=== PATIENT | female | born 1955 | race Caucasian/White ===

== ENCOUNTER 2020-06-24 07:28 | Outpatient (REF) | payer OTHER, SELFPAY ==
[2020-06-24 11:39] LABS: Cholesterol 242 mg/dL; HDL Cholesterol 57 mg/dL; LDL Cholesterol Calculated 152 mg/dl; Triglycerides 166 mg/dL
== END 2020-06-24 07:29 | disposition home or self-care (01) ==
LOC: HO.MANLDS 07:28
PROVIDERS: PCP Internal Medicine; Visit Provider Internal Medicine
DX: E78.00 Pure hypercholesterolemia, unspecified (principal)
CPT/HCPCS: 80061

== ENCOUNTER 2021-08-03 08:59 | Outpatient (REF) | payer MEDICARE, OTHER, SELFPAY ==
[2021-08-03 11:30] LABS: MANUAL DIFF FLAG NO
[2021-08-03 11:35] LABS: Basophils Percent Auto 0.5 % (0-2); Eosinophils Absolute Auto 0.1 X10*3/uL (0.0-0.4); Eosinophils Percent Auto 1.4 % (0-4); Hematocrit 41.3 % (37.0-47.0); Hemoglobin 13.7 g/dl (12.0-16.0); Imm Gran Abs Auto 0.07 X10*3/uL (0.00-0.03); Imm Gran Pct Auto 1.6 % (0.0-0.4); Lymphocytes Absolute Auto 1.5 X10*3/uL (1.2-4.9); Lymphocytes Percent Auto 35.4 % (20-40); Mean Corpuscular HGB Conc 33.2 g/dl (31.0-35.0); Mean Corpuscular Hemoglobin 30.8 pg (27.0-33.0); Mean Corpuscular Volume 92.8 fL (80.0-98.0); Mean Platelet Volume 10.9 fL (9.4-12.3); Monocytes Absolute Auto 0.5 X10*3/uL (0.1-1.2); Monocytes Percent Auto 11.3 % (2-11); Neutrophils Absolute Auto 2.2 x10*3/uL (2.0-8.3); Neutrophils Percent Auto 49.8 % (45-73); Platelet Count 278 X10*3/uL (160-400); Red Blood Count 4.45 X10*6/uL (4.20-5.50); Red Cell Distribution Width 13.2 % (11.0-16.0); White Blood Count 4.3 X10*3/uL (4.8-10.8)
[2021-08-03 12:19] LABS: Alanine Aminotransferase 18 U/L (0-31); Alkaline Phosphatase 75 U/L (39-117); Anion Gap 13 (12-20); Aspartate Amino Transferase 15 U/L (5-31); Bilirubin Total 0.5 mg/dL (0.0-1.0); Blood Urea Nitrogen 11 mg/dL (9-16); Calcium 9.1 mg/dL (8.4-10.2); Carbon Dioxide 30 mmol/L (22-29); Chloride 102 mmol/L (96-108); Cholesterol 217 mg/dL; Estimated Glomerular Filt Rate > 60; Glucose Fasting 81 mg/dL (60-99); HDL Cholesterol 62 mg/dL; LDL Cholesterol Calculated 111 mg/dl; Potassium 3.2 mmol/L (3.3-5.1); Sodium 142 mmol/L (135-145); Total Protein 6.3 g/dL (6.5-8.0); Triglycerides 220 mg/dL
[2021-08-03 12:29] LABS: Vitamin B12 765 pg/mL (200-900)
== END 2021-08-03 09:00 | disposition home or self-care (01) ==
LOC: HO.MANLDS 08:59
PROVIDERS: PCP Internal Medicine; Visit Provider Internal Medicine
DX: E03.9 Hypothyroidism, unspecified (principal); E78.00 Pure hypercholesterolemia, unspecified
CPT/HCPCS: 36415; 80053; 80061; 82306; 82607; 84443; 85025

== ENCOUNTER 2022-08-19 09:43 | Outpatient (REF) | payer MEDICARE, OTHER, SELFPAY ==
[2022-08-19 11:40] LABS: MANUAL DIFF FLAG NO
[2022-08-19 12:03] LABS: Basophils Percent Auto 0.7 % (0-2); Eosinophils Absolute Auto 0.1 X10*3/uL (0.0-0.4); Eosinophils Percent Auto 1.4 % (0-4); Hematocrit 41.9 % (37.0-47.0); Hemoglobin 13.7 g/dl (12.0-16.0); Imm Gran Abs Auto 0.02 X10*3/uL (0.00-0.03); Imm Gran Pct Auto 0.5 % (0.0-0.4); Lymphocytes Percent Auto 23.4 % (20-40); Mean Corpuscular HGB Conc 32.7 g/dl (31.0-35.0); Mean Corpuscular Hemoglobin 30.6 pg (27.0-33.0); Mean Corpuscular Volume 93.7 fL (80.0-98.0); Mean Platelet Volume 11.5 fL (9.4-12.3); Monocytes Absolute Auto 0.4 X10*3/uL (0.1-1.2); Monocytes Percent Auto 8.7 % (2-11); Neutrophils Absolute Auto 2.8 x10*3/uL (2.0-8.3); Neutrophils Percent Auto 65.3 % (45-73); Platelet Count 233 X10*3/uL (160-400); Red Blood Count 4.47 X10*6/uL (4.20-5.50); Red Cell Distribution Width 12.6 % (11.0-16.0); White Blood Count 4.2 X10*3/uL (4.8-10.8)
[2022-08-19 14:39] LABS: Alanine Aminotransferase 20 U/L (0-31); Alkaline Phosphatase 74 U/L (39-117); Anion Gap 14 (12-20); Aspartate Amino Transferase 20 U/L (5-31); Bilirubin Total 0.6 mg/dL (0.0-1.0); Blood Urea Nitrogen 28 mg/dL (9-16); Carbon Dioxide 27 mmol/L (22-29); Chloride 105 mmol/L (96-108); Cholesterol 200 mg/dL; Estimated Glomerular Filt Rate 35; Glucose Random 86 mg/dL (60-115); HDL Cholesterol 59 mg/dL; LDL Cholesterol Calculated 125 mg/dl; Potassium 5.1 mmol/L (3.3-5.1); Sodium 141 mmol/L (135-145); Total Protein 6.1 g/dL (6.5-8.0); Triglycerides 82 mg/dL
[2022-08-19 14:55] LABS: Free T4 (Free Thyroxine) 1.59 ng/dL (0.71-1.85); Thyroid Stimulating Hormone 0.22 uIU/mL (0.32-4.0)
== END 2022-08-19 09:44 | disposition home or self-care (01) ==
LOC: HO.MANLDS 09:43
PROVIDERS: Visit Provider Internal Medicine
DX: E78.00 Pure hypercholesterolemia, unspecified (principal); K21.9 Gastro-esophageal reflux disease without esophagitis; E03.9 Hypothyroidism, unspecified
CPT/HCPCS: 36415; 80053; 80061; 82306; 84439; 84443; 85025

== ENCOUNTER 2022-08-29 08:58 | Outpatient (REF) | payer MEDICARE, OTHER, SELFPAY ==
[2022-08-29 14:26] LABS: Appearance Urine Clear; Color Urine Yellow; Glucose Urine UA Negative (Negative); Leukocyte Esterase Urine Negative (Negative); Nitrite Urine Negative (Negative); PH 6.5 (5.0-9.0); Specific Gravity - Urine <= 1.005 (1.005-1.025); Urine Blood Negative (Negative); Urine Ketones Negative (Negative); Urine Protein Negative (Neg-Trace)
[2022-08-29 14:31] LABS: Bacteria Urine None Seen (None Seen); Hyaline Casts Urine 0-2 /LPF (0-2); RBC Urine 0-2 /HPF (0-2); Squamous Epithelial Cell Urine 0-2 /HPF (0-2); WBC Urine 0-5 /HPF (0-5)
[2022-08-29 14:35] LABS: Anion Gap 15 (12-20); Blood Urea Nitrogen 12 mg/dL (9-16); Carbon Dioxide 29 mmol/L (22-29); Chloride 104 mmol/L (96-108); Estimated Glomerular Filt Rate > 60; Glucose Random 90 mg/dL (60-115); Potassium 4.1 mmol/L (3.3-5.1); Sodium 144 mmol/L (135-145)
== END 2022-08-29 08:59 | disposition home or self-care (01) ==
LOC: HO.MANLDS 08:58
PROVIDERS: Visit Provider Internal Medicine
DX: N28.9 Disorder of kidney and ureter, unspecified (principal)
CPT/HCPCS: 36415; 80048; 81001; 87086

== ENCOUNTER 2023-08-25 07:51 | Outpatient (REF) | payer MEDICARE, OTHER, SELFPAY ==
[2023-08-25 13:23] LABS: MANUAL DIFF FLAG NO
[2023-08-25 13:56] LABS: Basophils Percent Auto 0.6 % (0-2); Eosinophils Absolute Auto 0.1 X10*3/uL (0.0-0.4); Eosinophils Percent Auto 1.6 % (0-4); Hematocrit 41.9 % (37.0-47.0); Imm Gran Abs Auto 0.02 X10*3/uL (0.00-0.03); Imm Gran Pct Auto 0.4 % (0.0-0.4); Lymphocytes Absolute Auto 1.1 X10*3/uL (1.2-4.9); Lymphocytes Percent Auto 21.1 % (20-40); Mean Corpuscular HGB Conc 33.4 g/dl (31.0-35.0); Mean Corpuscular Hemoglobin 31.3 pg (27.0-33.0); Mean Corpuscular Volume 93.5 fL (80.0-98.0); Mean Platelet Volume 11.2 fL (9.4-12.3); Monocytes Absolute Auto 0.4 X10*3/uL (0.1-1.2); Monocytes Percent Auto 8.5 % (2-11); Neutrophils Absolute Auto 3.4 x10*3/uL (2.0-8.3); Neutrophils Percent Auto 67.8 % (45-73); Platelet Count 268 X10*3/uL (160-400); Red Blood Count 4.48 X10*6/uL (4.20-5.50); Red Cell Distribution Width 12.7 % (11.0-16.0); White Blood Count 5.1 X10*3/uL (4.8-10.8)
[2023-08-25 14:27] LABS: Alanine Aminotransferase 21 U/L (0-31); Alkaline Phosphatase 73 U/L (39-117); Anion Gap 11 (12-20); Aspartate Amino Transferase 21 U/L (5-31); Bilirubin Total 0.5 mg/dL (0.0-1.0); Blood Urea Nitrogen 10 mg/dL (9-16); Calcium 9.1 mg/dL (8.4-10.2); Carbon Dioxide 30 mmol/L (22-29); Chloride 105 mmol/L (96-108); Cholesterol 212 mg/dL (<200); Estimated Glomerular Filt Rate > 60; Glucose Random 87 mg/dL (60-115); HDL Cholesterol 60 mg/dL (>40); LDL Cholesterol Calculated 126 mg/dL (<100); Potassium 3.8 mmol/L (3.3-5.1); Sodium 142 mmol/L (135-145); Total Protein 6.5 g/dL (6.5-8.0); Triglycerides 134 mg/dL (<150)
[2023-08-25 14:47] LABS: Free T4 (Free Thyroxine) 1.29 ng/dL (0.71-1.85); Thyroid Stimulating Hormone 0.18 uIU/mL (0.32-4.0); Vitamin D 25-OH Total 54.5 ng/mL (>30)
== END 2023-08-25 07:52 | disposition home or self-care (01) ==
LOC: HO.MANLDS 07:51
PROVIDERS: Visit Provider Internal Medicine
DX: E78.00 Pure hypercholesterolemia, unspecified (principal); I10 Essential (primary) hypertension; E03.9 Hypothyroidism, unspecified; E55.9 Vitamin D deficiency, unspecified
CPT/HCPCS: 36415; 80053; 80061; 82306; 84439; 84443; 85025

== ENCOUNTER 2024-04-03 14:39 | Outpatient (REF) | payer MEDICARE, OTHER, SELFPAY ==
--- NOTE | ~2024-04-03 | US_ITS ---
EXAMINATION: MM DIAGNOSTIC DIGITAL BREAST TOMOSYNTHESIS, BILATERAL US BREAST LIMITED, LEFT MAMMOGRAPHY: CLINICAL INFORMATION: 68-year-old female complaining of diffuse left breast pain. Also due for yearly. COMPARISON: Mammography: 05/02/2023 right, 03/24/2023 bilateral, 03/02/2023 left, 03/07/2022 bilateral, 03/04/2021 bilateral ([facility]). TECHNIQUE: Digital breast tomosynthesis is performed in both the craniocaudal and mediolateral oblique views along with computer-aided detection (CAD). Synthesized 2D images are generated from the tomosynthesis. FINDINGS: There are scattered areas of fibroglandular density (ACR BI-RADS breast composition Category b). Benign type calcification left breast upper outer quadrant anterior one third. There are no suspicious masses, suspicious grouped calcifications, or areas of architectural distortion in either breast. The parenchymal pattern is stable from prior exams. There is no skin or axillary abnormality. ULTRASOUND: CLINICAL INFORMATION: Diffuse left breast pain. COMPARISON: Ultrasound left breast 03/02/2023 ([facility]). TECHNIQUE: Targeted sonographic evaluation left breast was performed using a high frequency linear transducer. All 4 quadrants were scanned as well as the retroareolar region. Selected archived documentation. FINDINGS: LEFT BREAST: There is a mixture of fatty and fibroglandular tissue. No suspicious mass is seen. There is no pathologic acoustic shadowing. There are no cystic abnormalities. There is no ultrasound correlate to explain diffuse left breast pain. US/US breast LT limited mamm only IMPRESSION: -There are no findings in either breast suspicious for malignancy. -No mammographic or sonographic abnormality in the left breast to explain diffuse left breast pain. Recommend clinical management of follow-up. -Otherwise, recommend the patient resume routine annual screening mammography. OVERALL ASSESSMENT: Mammography: BI-RADS 2 - Benign Findings Ultrasound: BI-RADS 2 - Benign Findings RECOMMENDATION: 1. Patient should be managed based on the clinical impression. 2. Otherwise, routine annual screening mammography. This patient's information was entered into a reminder system with a target due date for their next mammogram. Electronically signed by: Yonny Pennington MD 04/03/2024 03:47 PM EDT
== END 2024-04-03 14:40 | disposition home or self-care (01) ==
LOC: HO.MAMMO 14:39
PROVIDERS: PCP Internal Medicine; Visit Provider Physician Assistant
DX: N64.4 Mastodynia (principal)
CPT/HCPCS: 76642; 77062; 77066

== ENCOUNTER → 2024-04-03 15:00 | Outpatient (BNV) | payer MEDICARE, OTHER, SELFPAY | PROVIDERS: PCP Internal Medicine; Visit Provider Radiology Diagnostic Radiology | DX: N64.4 Mastodynia (principal) | CPT/HCPCS: 76642; 77066; G0279 ==

== ENCOUNTER 2025-03-12 17:58 | Outpatient (REF) | payer MEDICARE, OTHER, SELFPAY | END 2025-03-12 17:59 | disposition home or self-care (01) | LOC: HO.MANLNP 17:58 | PROVIDERS: Visit Provider Physician Assistant | DX: L03.116 Cellulitis of left lower limb (principal) | CPT/HCPCS: 87070; 87205 ==

== ENCOUNTER 2025-04-03 08:18 | Outpatient (REF) | payer MEDICARE, OTHER, SELFPAY ==
--- OUTSIDE RECORDS SUMMARY | 2025-04-02 22:52 | XMS_ITS | Continuity of Care Document ---
Author Name [facility] Organization [facility] Care Team Providers Care Tire Servicer Name Role Phone [facility] Unavailable Unavailable Medications Combined list of outpatient medications from Department of Defense and Veterans Affairs facilities.Medications provided include 1) outpatient medications from the last 15 months, and 2) patient-reported medications. Medication Details Route Status Patient Instructions Prescription Expires Prescription Number Last Dispense Date Ordering Provider Order Date Order Qty Source TRAMADOL HCL (tramadol HCl), 50 MG, TABLET, ORAL, AMNEAL PHARMACE, 500 ea. BOTTLE Active [id number] 2023 120 Pharmac y Data Transac tion Service Facilit y TRAMADOL HCL (tramadol HCl), 50 MG, TABLET, ORAL, AMNEAL PHARMACE, 500 ea. BOTTLE Active [id number] 2023 120 Pharmac y Data Transac tion Service Facilit y Immunizations Combined list of available immunizations from the Department of Defense and Veterans Affairs facilities. Immunization Series Date Given Administered By Site Reaction Lot Number CVX Code Drug Vice President Lending Status Comments Source Tdap 2020 BOGDASARIAN, () Not Given Tdap DoD zoster recombinant 2019 BOGDASARIAN, () Not Given zoster recombina nt DoD zoster recombinant 2019 BOGDASARIAN, () Not Given zoster recombina nt DoD influenza, injectable, quadrivalent, preservative free 2019 BOGDASARIAN, () Not Given influenza , injectabl e, quadrival ent, preservat jazmyn free DoD Influenza, injectable, MDCK, preservative free, quadrivalent 2016 BOGDASARIAN, () Not Given Influenza , injectabl e, MDCK, preservat jazmyn free, quadrival ent DoD Social History Combined list of available smoking, tobacco, and other social history from Department of Defense and Veterans Affairs facilities. Social History Type Response Date Comment Sour e This section is an empty social history section. DoD
[2025-04-03 08:48] LABS: MANUAL DIFF FLAG NO
--- OUTSIDE RECORDS SUMMARY | 2025-04-03 08:53 | XMS_ITS | Encounter Summary ---
Author Organization [facility] Address [address] [place] [address] Drive [address] [place] [address] Phone Care Team Providers Care Security Patrol Officer Name Role Phone Rito Yousif DO Unavailable Miguel Baker MD Unavailable [email or web address] Amina Metz MD Unavailable [phone] Milla Villagran MD Unavailable [phone] Rito Yousif DO Primary Care Provider [phone] Rito Yousif DO Primary Care Provider [phone] Encounter Details Date Type Department Care Team (Late st Contact Info) Description 04/03/2023 Procedure Pass [address] [address] Social History Tobacco Use Types Packs/Day Years Used Date Smoking Tobacco: Never Smokeless Tobacco: Never Comments:Both parents smoked in the house I was raised in. Alcohol Use Standard Drinks/Week Comments No 0 (1 standard drink = 0.6 oz pur e alcohol) Education Answer Date Recorded Are you interested in more education? Not on kelly e 12/02/2022 Are you concerned about learning? Not on file 12/02/2022 No 12/02/2022 No 12/02/2022 Digital Access Answer Date Recorded No 12/31/2022 No 12/31/2022 Reliable internet access at home? Not on file 12/31/2022 Device with a working camera? Not on file Intimate Partner Violence Answer Date R ecorded Are you denied basic needs s uch as food, clothing, or medical care? No 09/26/2022 In the past 12 months have y ou been in a relationship with a person who hurts, threatens, or tries to control you? No 09/26/2022 Are you denied basic needs s uch as food, clothing, or medical care? No 09/26/2022 In the past 12 months have y ou been in a relationship with a person who hurts, threatens, or tries to control you? No 09/26/2022 Comments No Sex and Gender Information Value Date Recorded Sex Assigned at Female 02/14/2020 11:28 AM EDT Legal Sex Female 9:54 PM EDT Gender Identity Female 02/14/2020 11:28 AM EDT Sexual Orientation Straight 02/14/2020 11 :28 AM EDT documented as of this encounter Plan of Treatment Not on file documented as of this encounter Visit Diagnoses Not on filedocumented in this encounter Care Teams Security Patrol Officer Relationship Specialty Start Date End Date Rito Yousif DO PCP - General Internal Medicine 06/16/17 03/09/25 Rito Yousif DO [address] [place] [address] PCP - General Internal Medicine 03/10/25 Rito Yousif DO Historical LMR Provider 05/23/17 Miguel Baker MD [email or web address] Historical LMR Provider 05/23/17 Amina Metz MD [address] [place] [address] Historical LMR Provider 05/23/17 Milla Villagran MD [address] [place] [address] Orthopedics & Sports Medicine, [facility] [place] [address] [email or web address] Historical LMR Provider 05/23/17 documented as of this encounter Additional Source Comments The information contained in this document represents components of the legal health record. It is not the complete legal health record.[facility]
--- OUTSIDE RECORDS SUMMARY | 2025-04-03 08:53 | XMS_ITS | Encounter Summary ---
Author Organization [facility] Address [address] [place] [address] [place] [address] Phone Care Team Providers Care Precision Instrument And Tool Maker Name Role Phone Rito Yousif DO Unavailable Miguel Baker MD Unavailable [email or web address] Amina Metz MD Unavailable [phone] Milla Villagran MD Unavailable [phone] Rito Yousif DO Primary Care Provider [phone] Rito Yousif DO Primary Care Provider [phone] Encounter Details Date Type Department Care Team (Late st Contact Info) Description 03/02/2023 Ancillary Orders Virtual Department [address] [place] [address] Zuleyka Mcfarland PA [address] [facility] [address] [place] [address] Mastodynia Social History Tobacco Use Types Packs/Day Years [...] on file documented as of this encounter Results * BI MAMMOGRAM DIAGNOSTIC WITH TOMOSYNTHESIS WITH CAD (LEFT) (03/02/2023 2:23 PM EDT) Anatomical Region Laterality Modality Breast Left, Breast Bilateral Left Ma mmography 03/02/2023 3:01 PM EDT Impressions 03/02/2023 3:06 PM EDT No findings worrisome for malignancy or explanation of LEFT breast tenderness. From an imaging standpoint, annual screening mammography is recommended. Scheduling note: The patient is due for a screening mammogram of the RIGHT breast after March 07, 2023. BI-RADS CATEGORY: 1 - Negative. DENSITY: There are scattered fibroglandular densities. LEFT RECOMMENDATION DUE DATE: 12 months Left Mammography Screening Narrative 03/02/2023 3:06 PM EDT LEFT breast diagnostic mammogram and ultrasound: COMPARISON: 03/07/2022 through 01/11/2010. This is a diagnostic mammogram for generalized soreness of the entire left breast. No focal areas or palpable abnormalities. Digital 3-D tomosynthesis with 2-D reconstructions in the CC and MLO view of the left breast were obtained. Computer-aided detection system also utilized. The overall appearance is unchanged. No new mass, asymmetry, architectural distortion or worrisome calcifications have become apparent on this side. Subsequent ultrasound survey of the entire breast shows no cystic or solid masses or other findings which might explain soreness. Procedure Note Mohsen Shane MD - 03/02/2023 LEFT breast diagnostic mammogram and ultrasound: COMPARISON: 03/07/2022 through 01/11/2010. This is a diagnostic mammogram for generalized soreness of the entire leftbreast. No focal areas or palpable abnormalities. Digital 3-D tomosynthesis with 2-D reconstructions in the CC and MLO viewof the left breast were obtained. Computer-aided detection system alsoutilized. The overall appearance is unchanged. No new mass, asymmetry, architectural distortion or worrisomecalcifications have become apparent on this side. Subsequent ultrasound survey of the entire breast shows no cystic or solidmasses or other findings which might explain soreness. IMPRESSION: No findings worrisome for malignancy or explanation of LEFT breasttenderness. From an imaging standpoint, annual screening mammography isrecommended. Scheduling note: The patient is due for a screening mammogram of the RIGHTbreast after March 07, 2023. BI-RADS CATEGORY: 1 - Negative. DENSITY: There are scattered fibroglandular densities. LEFT RECOMMENDATION DUE DATE: 12 months Left Mammography Screening Zuleyka JOYCE IMG MG EXAMS Final Resul t documented in this encounter Visit Diagnoses Diagnosis Mastodynia Mastodynia documented in this encounter Care Teams Precision Instrument And Tool Maker Relationship Specialty Start Date End Date Rito Yousif DO [email or web address] PCP - General Internal Medicine 06/16/17 03/09/25 Rito Yousif DO [address] [place] [address] PCP - General Internal Medicine 03/10/25 Rito Yousif DO Historical LMR Provider 05/23/17 Miguel Baker MD [email or web address] Historical LMR Provider 05/23/17 Amina Mtez MD [address] [place] [address] [email or web address] Historical LMR Provider 05/23/17 Milla Villagran MD [address] [place] [address] Orthopedics & Sports Medicine, [place] [address] [email or web address] Historical LMR Provider 05/23/17 documented as of this encounter Additional Source Comments The information contained in this document represents components of the legal health record. It is not the complete legal health record.[facility]
--- OUTSIDE RECORDS SUMMARY | 2025-04-03 08:53 | XMS_ITS | Encounter Summary ---
Author Organization [facility] Address [address] [place] [address] [place] [address] Phone Care Team Providers Care Legal Support Assistant Name Role Phone Rito Yousif DO Unavailable Ed Taylor MD Unavailable [phone] Miguel Baker MD Unavailable [email or web address] Amina Metz MD Unavailable [phone] Milla Villagran MD Unavailable [phone] Rito Yousif DO Primary Care Provider [phone] Rito Yousif DO Primary Care Provider [phone] Encounter Details Date Type Department Care Team (Late st Contact Info) Description 11/25/2019 Ancillary Orders Virtual Department [address] [place] [address] Rito Yousif DO [address] [facility] [place] [address] [email or web address] Breast screening Social History Tobacco Use Types Packs/Day Years Used Date Smoking Tobacco: Never Smokeless Tobacco: Never Alcohol Use Standard Drinks/Week Comments No 0 (1 standard drink = 0.6 oz pur e alcohol) Comments No Sex and Gender Information Value Date Recorded Sex Assigned at Female 02/14/2020 11:28 AM EDT Legal Sex Female 9:54 PM EDT Gender Identity Female 02/14/2020 11:28 AM EDT Sexual Orientation Straight 02/14/2020 11 :28 AM EDT documented as of this encounter Plan of Treatment Not on file documented as of this encounter Results * BI MAMMOGRAM SCREENING WITH TOMOSYNTHESIS WITH CAD (BILATERAL) (03/03/2020 7:37 AM EDT) Anatomical Region Laterality Modality Breast Left, Breast Right, Breast Bilateral Bila teral Mammography 03/03/2020 8:43 AM EDT Impressions 03/03/2020 8:45 AM EDT No mammographic change indicative of malignancy. Routine screening is recommended. BI-RADS CATEGORY: 2 - Benign finding. DENSITY: There are scattered fibroglandular densities. POS -[id number] Narrative 03/03/2020 8:45 AM EDT Bilateral full-field digital screening mammography is obtained and read in conjunction with computer-aided detection. Tomosynthesis as well as 2-D C view imaging of both breasts in two planes also obtained. Comparison made to multiple prior, most recent February 18, 2019, and most remote February 05, 2014. No dominant mass, architectural distortion, worrisome asymmetry, or suspicious calcification is identified. No skin or nipple finding of concern is appreciated. Scattered calcifications are stable. Procedure Note Jorge A Melton MD - 03/03/2020 Bilateral full-field digital screening mammography is obtained and read inconjunction with computer-aided detection. Tomosynthesis as well as 2-D Cview imaging of both breasts in two planes also obtained. Comparison madeto multiple prior, most recent February 18, 2019, and most remote February. No dominant mass, architectural distortion, worrisome asymmetry, orsuspicious calcification is identified. No skin or nipple finding ofconcern is appreciated. Scattered calcifications are stable. IMPRESSION: No mammographic change indicative of malignancy. Routine screening isrecommended. BI-RADS CATEGORY: 2 - Benign finding. DENSITY: There are scattered fibroglandular densities. POS -[id number] us Rito A Bigda DO IMG MG EXAMS Final Result documented in this encounter Visit Diagnoses Diagnosis Breast screening Breast screening, unspecified Breast screening Breast screening, unspecified documented in this encounter Care Teams Legal Support Assistant Relationship Specialty Start Date End Date Rito Yousif DO PCP - General Internal Medicine 06/16/17 03/09/25 Rito Yousif DO [address] [place] [address] PCP - General Internal Medicine 03/10/25 Rito Yousif DO Historical LMR Provider 05/23/17 Ed Taylor MD [address] [place] [address] Historical LMR Provider 05/23/17 08/14/21 Miguel Baker MD [email or web address] Historical LMR Provider 05/23/17 Amina Metz MD [address] [place] [address] Historical LMR Provider 05/23/17 Milla Villagran MD [address] [place] [address] Orthopedics & Sports Medicine, [place] [address] Historical LMR Provider 05/23/17 documented as of this encounter Additional Source Comments The information contained in this document represents components of the legal health record. It is not the complete legal health record.[facility]
--- OUTSIDE RECORDS SUMMARY | 2025-04-03 08:53 | XMS_ITS | Clinical Summary ---
Author Organization [facility] Address [address] [place] [address] [place] [phone] Phone Care Team Providers Care Veterinarian Assistant Name Role Phone Rito Yousif DO Unavailable Miguel Baker MD Unavailable [email or web address] [email or web address] MD Unavailable [phone] Milla Villagran MD Unavailable [phone] Rito Yousif DO Primary Care Provider [phone] Allergies Active Allergy Reactions Criticality Noted Date Comments Sfepmlf-Rbq-Izd Reductase Inhibitors Diarrhea 08/28/2017 Medications amLODIPine (NORVASC) 5 MG tablet Take 5 mg by mouth daily. Active calcium carbonate (OS-GUMARO) 1,250 mg (500 mg elemental) tablet as needed. Active gabapentin (NEURONTIN) 600 MG tablet 2 tabs in evening Active glucosamine-ch ondroitin 500-400 mg Cap 1 capsule 2 (two) times a day. Active melatonin 3 mg Tab 1 tablet at bedtime as needed with food Active multivit-finished cloth examiner als-ferrous fum (MULTI VITAMIN) 9 mg iron/15 mL Liqd 2 (two) times a day. Active omega 4-qqj-ite-fish oil (FISH OIL) 360-1,200 mg CpDR 2 (two) times a day. Active levothyroxine (SYNTHROID) 125 MCG tablet 1 tablet on an empty stomach in the morning Active acetaminophen (TYLENOL ARTHRITIS PAIN) 650 MG CR tablet 1 tablet as needed Active cholecalcifero l (VITAMIN D3) 2,000 unit capsule 4,000 Units daily. Active ipratropium-al buterol (DUONEB) 0.5-2.5 mg/3 mL nebulizer solution 3 mL as needed. Acti ve montelukast (SINGULAIR) 10 mg tabletIndicati ons:Asthma TAKE 1 TABLET DAILY IN THE EVENING 90 tablet 3 0 Active PROAIR HFA 90 mcg/actuation inhaler INL 2 PFS PO Q 4 H PRN 0 Active esomeprazole (NEXIUM) 20 MG capsule Take 40 mg by mouth daily before breakfast. 0 Active diclofenac sodium (VOLTAREN) 1 % GelIndications :Primary osteoarthritis , right ankle and foot APPLY 2 GM TOPICALLY FOUR TIMES A DAY NEEDED 100 g 27 1 Active varicella-zost er [id number], PF, (SHINGRIX, PF,) 50 mcg/0.5 mL IM injection Shingrix (PF) 50 mcg/0.5 mL intramuscular suspension, kit ADMINISTER 0.5ML IN THE MUSCLE DIRECTED Active tetanus toxoid-reduced diphth toxoid-acell pertussis (BOOSTRIX) 2.5-8-5 Lf-mcg-Lf/0.5m L IM syringe 1 Active influenza quadrivalent, 6 mos+,, PF, (FLUARIX QUAD [id number], PF,) 60 mcg (15 mcg x 4)/0.5 mL IM injection 0 Active inhaler spacing device (AEROVENT PLUS) Spcr 0 Active traMADoL (ULTRAM) 50 mg tablet Take 50 mg by mouth every 6 (six) hours as needed for pain (specific location in comments). Active Active Problems Problem Noted Date Diagnosed Date Hypertension 08/18/2020 Assessment & Plan (11/16/2020 11:09 AM EDT): Her blood pressure is elevated today at 165/94. She is taking 5 mg of amlodipine at home but admits to not watching her salt intake so she will start to practice sodium restriction good oral hydration and avoid vhwf-amp-ruldrxe NSAIDs though she may continue to use diclofenac gel as needed and she must check in with her primary care physician after taking her home blood pressure twice daily for 10 days. Assessment & Plan (08/18/2020 9:33 AM EST): I did a second blood pressure in her right arm sitting which was 132/76. We talked a little bit about the natural history of hypertension the need for sodium restriction, weight control, and cardiovascular exercise. Lumbar radiculitis 08/18/2020 Assessment & Plan (04/19/2021 10:12 AM EDT): Excellent improvement after lumbar laminectomy by neurosurgeon. The left lower extremity radiculopathy has finally improved. She will continue to use gabapentin at bedtime and diclofenac gel and arthritis formula Tylenol during the day. Recent lab work was reviewed. Office Visit on 04/11/2021 Component Date Value Ref Range Status Special Requests 04/11/2021 None Final GRAM STAIN 04/11/2021 Few WBC'S , Moderate GRAM NEGATIVE RODS , Few GRAM POSITIVE COCCI Final Wound Culture/Smear 04/11/2021 Moderate PASTEURELLA CANIS* Final Wound Culture/Smear 04/11/2021 Moderate ALPHA HEMOLYTIC STREPTOCOCCUS (VIRIDANS)* Final Wound Culture/Smear 04/11/2021 Moderate NEISSERIA ANIMALORIS/ZOODEGMATIS Final Assessment & Plan (11/16/2020 11:09 AM EDT): Still improving after lumbar laminectomy and fusion. Continuing to have pain but tapering off gabapentin. I think this will end up very well and she will do well with this as long as she continues the rehab program. Assessment & Plan (08/18/2020 9:32 AM EST): She needs to have another MRI scan done. I reviewed the one from 2017 indicating a mass-effect on the L4 nerve root on the left side from a combination of disc bulging, lateral recess stenosis, and ligamentum flavum hypertrophy. Her left lower extremity radiculopathy is worsening despite the use of 1200 with a grams of gabapentin at bedtime and tramadol during the day. She will likely need referral to neurosurgery for an opinion. I will review the MRI and get back to her by phone call. S/P right rotator cuff repair 02/17/2020 Assessment & Plan (02/17/2020 8:24 AM EDT): 5 weeks status post right shoulder rotator cuff repair. Will begin physical therapy next week. Went over the initial stages of physical therapy and need to maintain range of motion and regain strength. [facility] postoperative surgical situation all questions answered. Surgical notes reviewed. Lab work ordered to go over comprehensive chemistry profile, TSH, and vitamin D level. GERD (gastroesophageal reflux disease) 0 Assessment & Plan (08/19/2019 12:33 PM EST): Continues to be mildly and intermittently symptomatic despite the fact that she is on 40 mg of pantoprazole daily. Talked about dietary changes. She does have a consult coming up with her gem setter. She will discuss this with her. Bilateral thumb pain 11/01/2018 Lumbar spondylolysis 06/20/2018 Assessment & Plan (02/17/2020 8:23 AM EDT): Chronic daily low back pain without radiculopathy or myelopathy. Continue to do core strengthening exercises, use gabapentin in the evening, and acetaminophen not exceeding 2000 mg daily. No signs or symptoms of radiculopathy or neurogenic claudication. Assessment & Plan (09/30/2019 12:58 PM EST): Daily morning stiffness but no pain awakening her from sleep and no evidence of neurogenic claudication or radiculopathy. Continue diclofenac as needed to painful areas of the lumbar spine not exceeding 3 times daily. Continue gabapentin 600 mg at bedtime. No side effects no morning grogginess. Recent lab work reviewed. Hospital Outpatient Visit on 02/15/2019 Component Date Value Ref Range Status TSH 02/15/2019 1.42 0.27 - 4.20 uIU/mL Final SODIUM 02/15/2019 141 133 - 146 mmol/L Final POTASSIUM 02/15/2019 4.4 3.3 - 5.1 mmol/L Final CHLORIDE 02/15/2019 103 96 - 108 mmol/L Final CO2 02/15/2019 26 21 - 35 mmol/L Final BUN 02/15/2019 15 6 - 19 mg/dL Final CREATININE 02/15/2019 0.70 0.5 - 1.5 mg/dL Final GLUCOSE 02/15/2019 80 70 - 99 mg/dL Final ALBUMIN 02/15/2019 3.9 3.9 - 4.8 g/dL Final TOTAL PROTEIN 02/15/2019 6.7 6.5 - 8.0 g/dL Final CALCIUM 02/15/2019 9.2 8.4 - 10.3 mg/dL Final ALKALINE PHOSPHATASE 02/15/2019 64 39 - 117 U/L Final TOTAL BILIRUBIN 02/15/2019 0.5 0.0 - 1.2 mg/dL Final AST 02/15/2019 28 0 - 37 U/L Final ALT 02/15/2019 21 0 - 40 U/L Final GLOBULIN 02/15/2019 2.8 1 - 4.8 g/dL Final EGFR 02/15/2019 93 >59 mL/min/1.73m2 Final If patient is black, multiply result by 1.159. Estimated glomerular filtration rate calculated using the CKD-EPI equation. ANION GAP 02/15/2019 16 10 - 20 mmol/L Final HDL 02/15/2019 68 mg/dL Final Comment: Interpretation <40 mg/dL: Low HDL cholesterol (major risk factor for CHD) Greater than or equal to 60 mg/dL: High HDL cholesterol ( negative risk factor for CHD) HDL - cholesterol is affected by a number of factors, e.g. smoking, excerise, hormones, sex and age. CHOLESTEROL 02/15/2019 226 0 - 240 mg/dL Final TRIGLYCERIDES 02/15/2019 73 30 - 160 mg/dL Final LDL 02/15/2019 143* 50 - 129 mg/dL Final Comment: LDL levels in terms of risk for coronary heart disease: <100 mg/dL: Optimal 100-129 mg/dL: Near or above optimal 130-159 mg/dL: Borderline high 160-189 mg/dL: High >190 mg/dL: Very High CARDIAC RISK RATIO 02/15/2019 3.3 3.3 - 4.4 Final Assessment & Plan (08/19/2019 12:32 PM EST): She continues to have some pain and stiffness in the lower back but not severe. She may continue to use acetaminophen with tramadol as needed and be compliant with home exercise program. No long track signs, signs of radiculopathy or neurogenic claudication. Assessment & Plan (10/18/2018 8:08 AM EDT): Stable and improved without radicular symptoms at this time. Continue gabapentin. Continue core strengthening exercises. Call if she has a flare. Assessment & Plan (06/20/2018 5:06 PM EST): Patient's spondylitic pain in the lumbosacral region is under reasonably good control between her tramadol and gabapentin. I reviewed the November 2016 MRI of the lumbar spine showing a scoliotic deformity with a grade 1 spondylolisthesis of L4 on L5 and lateral neuroforaminal stenosis with pressure on the L4 transverse nerve root. She understands the need for well fitting supportive shoes with good shock absorption, weight control, and avoidance of heavy lifting or other injuries and to pay attention to her body mechanics at work to avoid spinal injury. Osteoarthritis of both hands 12/26/2017 Assessment & Plan (08/18/2020 9:34 AM EST): This is stable. No Dupuytren's contractures or signs and symptoms of carpal tunnel syndrome. She will continue to use warmth, enlarged windows vmware engineer on tools and utensils. Assessment & Plan (02/17/2020 8:23 AM EDT): Severe bilateral interphalangeal and by basilar thumb osteoarthritis will be treated with diclofenac gel as needed with risks and benefits, enlarged windows vmware engineer on tools and utensils and judicious use of warmth. Assessment & Plan (09/30/2019 12:58 PM EST): Mild continued pain of osteoarthritis in the interphalangeal joints of both hands but no new flares. Then went over appropriate intrinsic muscle strengthening at home and judicious use of warmth and threshold for intra-articular steroids. Assessment & Plan (08/19/2019 12:32 PM EST): Left greater than right basilar thumb and interphalangeal osteoarthritis will be treated with tramadol as needed, enlarged windows vmware engineer on tools and utensils, and warmth. No trigger fingers are seen. 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 We discussed utility of enlarged windows vmware engineer on tools and utensils and the judicious use of warmth. She is status post septic arthritis of the index finger of the left hand and this has not recurred fortunately. Assessment & Plan (06/20/2018 5:05 PM EST): She will continue using the Voltaren gel. She will continue the tramadol and Tylenol. Enlarged windows vmware engineer on tools and utensils were recommended. Septic arthritis of interphalangeal joint of fin massiel, right 09/07/2017 Assessment & Plan (06/20/2018 5:04 PM EST): Completely resolved. Osteopenia 08/28/2017 Assessment & Plan (04/19/2021 10:13 AM EDT): Bone density reviewed and new bone densitometry is scheduled for 2022. Stable osteopenia with an undecipherable lumbar spine shows no need for pharmacologic intervention. Fall and fracture prevention strategies and continuance of vitamin D3. Schedule vitamin D check in July with primary care physician. Results for orders placed or performed during the hospital encounter of 03/31/21 (from the past 03083 hour(s)) DXA Monitoring Narrative Reason for exam (per EHR order): Osteopenia Additional clinical information obtained from the EHR: None. TECHNIQUE: Bone densitometry on [employer] A ([id number]). The least significant change for this machine is 0.039 g/cm2 for the lumbar spine, 0.034 g/cm2 for the total hip, and 0.030 g/cm2 for the radius. FINDINGS: Bone Density: Region: AP Spine (L3). BMD (g/cm2): 0.942. T-score: -1.3. Z-score: 0.5. Classification: Osteopenia. Region: Right Femoral Neck. BMD (g/cm2): 0.718. T-score: -1.2. Z-score: 0.8. Region: Right Total Hip. BMD (g/cm2): 0.857. T-score: -0.7. Z-score: 0.5. Classification: Normal. Region: Left Femoral Neck. BMD (g/cm2): 0.705. T-score: -1.3. Z-score: 0.2. Region: Left Total Hip. BMD (g/cm2): 0.839. T-score: -0.8. Z-score: 0.4. Classification: Normal. World Health Organization criteria for BMD interpretation classify patients as: Normal (T-score at or above -1.0), Osteopenia (T-score between -1.0 and -2.5), Osteoporosis (T-score at or below -2.5). Impression Osteopenia of the lumbar spine (specifically, the L3 vertebral body); and normal bone mineral density of the bilateral total hips. When comparing with the most recent prior from 2018, A decrease in the lumbar spine density. A increase in the right total hip density. A decrease in the left total hip density. Assessment & Plan (11/16/2020 11:09 AM EDT): Fall and fracture prevention strategies discussed. Vitamin D level was checked and will be remeasured. She will have another bone density done in March. Previous bone density was reviewed. All of her questions were answered. Results for orders placed or performed during the hospital encounter of 03/29/19 (from the past 13076 hour(s)) DXA Monitoring Narrative This is a 63-year-old postmenopausal female with a history of osteopenia. Compared with previous study 03/22/2017. Evaluation of the right forearm, lumbar spine and both hips is obtained and appears technically adequate. The lumbar spine at L3 and L4 discloses a total bone mineral density of 0.936 g/cm2 with a T-score of -1.5. Z score 0.2. This is in the osteopenia range. No statistically significant change from 03/22/2017. The right hip has a total bone mineral density of 0.848 g/cm2 with a T-score of -0.8. This is in the normal range. No statistically significant change from 03/22/2017. The left hip has a total bone mineral density of 0.864 g/cm2 for a T-score of - 0.6. This is in the normal range. No statistically significant change from 03/22/2017. The right forearm has a total bone mineral density of 0.495 g/cm2 for a T-score of -1.4. Z score 0.2. This is in the osteopenia range. No statistically significant change from 03/22/2017. Lateral instant vertebral imaging is not performed. Impression Findings again consistent with osteopenia. No statistically significant changes from 03/22/2017. POS -CDHRADBOARDWS4 Assessment & Plan (08/18/2020 9:33 AM EST): Bone densitometry reviewed. Another bone density will be ordered for next year. Fall and fracture prevention strategies discussed. Compliance with vitamin D discussed as well. Results for orders placed or performed during the hospital encounter of 03/29/19 (from the past 28024 hour(s)) DXA Monitoring Narrative This is a 63-year-old postmenopausal female with a history of osteopenia. Compared with previous study 03/22/2017. Evaluation of the right forearm, lumbar spine and both hips is obtained and appears technically adequate. The lumbar spine at L3 and L4 discloses a total bone mineral density of 0.936 g/cm2 with a T-score of -1.5. Z score 0.2. This is in the osteopenia range. No statistically significant change from 03/22/2017. The right hip has a total bone mineral density of 0.848 g/cm2 with a T-score of -0.8. This is in the normal range. No statistically significant change from 03/22/2017. The left hip has a total bone mineral density of 0.864 g/cm2 for a T-score of - 0.6. This is in the normal range. No statistically significant change from 03/22/2017. The right forearm has a total bone mineral density of 0.495 g/cm2 for a T-score of -1.4. Z score 0.2. This is in the osteopenia range. No statistically significant change from 03/22/2017. Lateral instant vertebral imaging is not performed. Impression Findings again consistent with osteopenia. No statistically significant changes from 03/22/2017. POS -CDHRADBOARDWS4 Assessment & Plan (02/17/2020 8:02 AM EDT): Last bone density reviewed showing stable osteopenia. Encouraged vitD and continued efforts at weight bearing activity with plan for repeat DEXA in late 2020. Results for orders placed or performed during the hospital encounter of 03/29/19 (from the past 23983 hour(s)) DXA Monitoring Narrative This is a 63-year-old postmenopausal female with a history of osteopenia. Compared with previous study 03/22/2017. Evaluation of the right forearm, lumbar spine and both hips is obtained and appears technically adequate. The lumbar spine at L3 and L4 discloses a total bone mineral density of 0.936 g/cm2 with a T-score of -1.5. Z score 0.2. This is in the osteopenia range. No statistically significant change from 03/22/2017. The right hip has a total bone mineral density of 0.848 g/cm2 with a T-score of -0.8. This is in the normal range. No statistically significant change from 03/22/2017. The left hip has a total bone mineral density of 0.864 g/cm2 for a T-score of - 0.6. This is in the normal range. No statistically significant change from 03/22/2017. The right forearm has a total bone mineral density of 0.495 g/cm2 for a T-score of -1.4. Z score 0.2. This is in the osteopenia range. No statistically significant change from 03/22/2017. Lateral instant vertebral imaging is not performed. Impression Findings again consistent with osteopenia. No statistically significant changes from 03/22/2017. POS -CDHRADBOARDWS4 Assessment & Plan (09/30/2019 12:59 PM EST): Fall and fracture prevention strategies reviewed. 25 hydroxy vitamin D level will be measured on the next visit. Assessment & Plan (10/18/2018 8:08 AM EDT): Reviewed last bone densitometry showing osteopenia. She will repeat this again in April. Call her with the results. She will stay on calcium and vitamin D3 at 2000 units daily. Calcium may be at 500 mg daily. Fall and fracture prevention strategies were discussed. Assessment & Plan (06/20/2018 5:04 PM EST): She is at increased risk for fall and fracture. She did have a Reclast infusion in October 30 of this year. I will schedule another one for the first week of November. She will have another bone densitometry in April of next year. I did review her bone density from March 2017 indicating a mean lumbar T score of -1.7 with a right forearm T score of -1.4 and a left hip T score of -0.5. Her vitamin D level was 51. Fall and fracture prevention strategies were discussed as well as maintenance of vitamin D3 I would reduce the dose to 4000 units daily as her level of 51 was taken while she was on 5000 units a day. Assessment & Plan (12/26/2017 4:48 PM EDT): Patient received a 5 mg Reclast infusion in October of this year and had no infusion reactions or postinfusion myalgias. She will continue on vitamin D3 as she does have a therapeutic level and she will continue with her weightbearing activity. Assessment & Plan (08/28/2017 3:40 PM EST): I reviewed with her bone densitometry from March indicating a mean lumbar T score of -1.7 with a right hip T score of -0.5 and a right forearm T score of -1.4. Patient will have another reclassification fusion this October. She will continue on vitamin D3 at 1000 units daily. Primary osteoarthritis, left ankle and foot 08/08 Assessment & Plan (08/28/2017 3:39 PM EST): This flare of her left first MTP joint will also be handled with well fitting shoes, continued use of orthotic, and a cortisone injection today. Primary osteoarthritis, right ankle and foot Assessment & Plan (12/26/2017 4:48 PM EDT): Patient's osteoarthritis in the interphalangeal joints as well as the first MTP joints bilaterally continues to be somewhat painful but condition has improved since she's been undergoing acupuncture. No need for local injection therapy today. She will continue on Tumeric as well as a healthier low inflammatory diet. She will call me if she needs a local injection therapy before I see her again. Assessment & Plan (08/28/2017 3:39 PM EST): Patient is having a flare of the right first MCP joint where she'll be treated with continued use of orthotics, benefit issues, and cortisone injection today. Encounters Date Type Department Care Team Description 03/10/2025 4:39 PM EDT - 03/10/2025 11:59 PM EDT Hospital Encounter [address] [address] Zuleyka Mcfarland PA Discharge Disposition: Home or Self Care 03/10/2025 Ancillary Orders [address] [address] Zuleyka Mcfarland PA Left leg pain (Primary Dx) 02/11/2025 5:11 PM EDT - 02/11/2025 11:59 PM EDT Hospital Encounter [facility] [address] [place] [id number] Zuleyka Mcfarland PA Discharge Disposition: Home or Self Care 02/11/2025 Transcribe Orders [facility] [address] [place] [address] Zuleyka Mcfarland PA Acute UTI (Primary Dx) 01/21/2025 9:00 AM EDT Office Visit [address] [address] Carmenza Bronson DPM Kobylarz, Sandra, PT Foot pain, right (Primary Dx) 01/14/2025 9:30 AM EDT Office Visit [address] [address] Carmenza Bronson DPM Truehart, Jane, SPOOL SALVAGER Foot pain, right (Primary Dx) 01/07/2025 9:45 AM EDT Office Visit [address] [address] Carmenza Bronson DPM Kobylarz, Sandra, PT Foot pain, right (Primary Dx) 01/03/2025 11:45 AM EDT Office Visit [address] [address] Carmenza Bronson DPM Truehart Shweta, SPOOL SALVAGER Foot pain, right (Primary Dx) 01/01/2025 11:15 AM EDT Office Visit [address] [address] Carmenza Bronson, Nuria Horn, PT Foot pain, right (Primary Dx) from Last 3 Months Immunizations Immunization Administration Dates Next Due COVID-19 (Pre-05/29) Pfizer Vaccine, mRNA, PF ,11/11/2020 Family History Medical History Relation Comments Breast cancer Maternal Aunt Cancer Mother lung cancer Breast cancer Sister mother's sister Relation Status Comments Maternal Aunt Mother Sister Social History Tobacco Use Types Packs/Day Years [...] Orientation Straight 02/14/2020 11 :28 AM EDT Last Filed Vital Signs Vital Sign Reading Time Taken Comments Blood Pressure 156/102 09/26/2022 12:38 PM EST Pulse 80 09/26/2022 12:38 PM EST Temperature 35.7 C (96.3 F) 09/26/2022 12:38 PM EST Respiratory Rate 16 09/26/2022 12:38 PM EST Oxygen Saturation 96% 09/26/2022 12:38 PM EST Inhaled Oxygen Concentration - - Weight 72.6 kg (160 lb) 09/26/2022 12:38 PM EST Height 152.4 cm (5') 09/26/2022 12:38 PM EST Body Mass Index 31.25 09/26/2022 12:38 PM EST Plan of Treatment Health Maintenance Due Date Last Done Comments BLOOD PRESSURE 1956 DEPRESSION SCREENING 1968 COLOGUARD 2001 COLONOSCOPY 2001 COLORECTAL CANCER SCREENING 2001 FIT TEST 2001 FOBT 2001 SIGMOIDOSCOPY 2001 VIRTUAL COLONOSCOPY 2001 TSH LEVEL 07/03/2020 07/03/2019, 02/04, 07/13/2018, Additional history exists ZOSTER VACCINES (2 of 2) 09/14/2020 07/20/2020, 07/07 PNEUMOCOCCAL VACCINES (50+ years) (2 of 2 - PPSV23) 07/05/2022 07/05/2021 LIPID PANEL 02/16/2024 02/15/2019, 1202/2018, 06/16/2017 MAMMOGRAM 03/07/2024 03/07/2022, 02/05, 03/03/2020, Additional history exists COVID-19 VACCINE ( - season) 2024 12/02/2020, 12/02/2020, 11/11/2020, Additional history exists INFLUENZA VACCINE (#1) 2025 3, 05/05/2022, 05/05/2022, Additional history exists SCREENING FOR DIABETES 09/26/2025 09/26/2022 Adult Td,Tdap Booster 01/13/2031 01/13/2021 RSV VACCINE (1 - 1-dose 75+ series) 2031 HEPATITIS C SCREENING Completed 07/13/2018, 018 OSTEOPOROSIS SCREENING INITIAL (ONE-TIME) Completed 03/31/2021, 03/29/2019 SMOKING STATUS SCREENING (Once After 26 Yrs) Completed 05/02/2023 HEPATITIS A VACCINES Aged Out No long er eligible based on patient's age to complete this topic HIB VACCINES Aged Out No longer eligi ble based on patient's age to complete this topic MENINGOCOCCAL VACCINES (ACWY) Aged Out No longer eligible based on patient's age to complete this topic MENINGOCOCCAL VACCINES (B) Aged Out N o longer eligible based on patient's age to complete this topic Medical Devices Not on file Procedures Procedure Name Priority Date/Time Associated Diagnosis Comments XR TIBIA FIBULA 2 VIEWS (LEFT) Routine 03/10/2025 4:45 PM EDT Left leg pain URINALYSIS W/REFLEX URINE CULTURE Routine 02/11/2025 5:17 PM EDT Acute UTI BI MAMMOGRAM SCREENING WITH TOMOSYNTHESIS WITH CAD (BILATERAL) Routine 03/07/2022 2:58 PM EDT Visit for screening mammogram BD DXA AXIAL (SPINE) WITH HIP Routine 03/31/2021 9:03 AM EDT Primary osteoarthritis of both hands Osteopenia, unspecified location TSH WITH REFLEX Routine 07/03/2019 10:56 AM EST Myxedema heart disease Essential hypertension, malignant LIPID PANEL Routine 02/15/2019 7:43 AM EDT Hypothyroidism, unspecified type HEPATITIS C VIRAL LOAD (PCR) Routine 07/13/2018 7:50 AM EST Hypothyroidism, unspecified type from Last 3 Months or Most Recently Relevant to Health Maintenance Results * XR Tibia Fibula 2 Views (Left) (03/10/2025 4:45 PM EDT) Anatomical Region Laterality Modality Leg Left Computed Radiogr aphy 03/11/2025 9:32 AM EDT Impressions 03/11/2025 9:58 AM EDT Mild diffuse soft tissue swelling without acute osseous abnormality. Narrative 03/11/2025 9:58 AM EDT XR TIBIA FIBULA 2 VIEWS (LEFT) Referring clinician's provided indication for this examination in [facility]: Pain COMPARISON: XR KNEE 4 OR MORE VIEWS (LEFT) FINDINGS: Mild diffuse soft tissue swelling. The osseous structures are intact without evidence of periosteal reaction or osteolysis. No fracture. Normal alignment. No lytic or blastic lesion. No acute abnormality within the included knee, ankle, and foot. Procedure Note Eliceo Neal MD - 03/11/2025 XR TIBIA FIBULA 2 VIEWS (LEFT) Referring clinician's provided indication for this examination in [facility]:Pain COMPARISON: XR KNEE 4 OR MORE VIEWS (LEFT) FINDINGS: Mild diffuse soft tissue swelling. The osseous structures are intactwithout evidence of periosteal reaction or osteolysis. No fracture. Normalalignment. No lytic or blastic lesion. No acute abnormality within theincluded knee, ankle, and foot. IMPRESSION: Mild diffuse soft tissue swelling without acute osseous abnormality. Zuleyka JOYCE IMG XR LOWER EXTREMITY Lucia l Result * Urinalysis w/reflex Urine Culture (02/11/2025 5:17 PM EDT) COLOR Yellow Yellow [facility] CLARITY Clear [facility] GLUCOSE Negative Negative [facility] BILI Negative Negative [facility] KETONES Negative Negative [facility] SPECIFIC GRAVITY 1.025 1.005 - 1.030 [facility] BLOOD Negative Negative [facility] PH 6.0 5.0 - 8.0 [facility] Protein-UA Negative Negative [facility] NITRITE Negative Negative [facility] Leukocyte esterase, ur Negative Negative [facility] Urine (Urine) 02/11/2025 5:1 7 PM EDT 02/11/2025 5:19 PM EDT us Zuleyka JOYCE URINE ORDERABLES Final Resu lt [address] [address] * BI MAMMOGRAM SCREENING WITH TOMOSYNTHESIS WITH CAD (BILATERAL) (03/07/2022 2:58 PM EDT) Anatomical Region Laterality Modality Breast Left, Breast Right, Breast Bilateral Bila teral Mammography 03/08/2022 5:30 PM EDT Impressions 03/08/2022 6:13 PM EDT No mammographic signs of malignancy. Annual screening is recommended. BI-RADS CATEGORY: 1 - Negative. DENSITY: There are scattered fibroglandular densities. Narrative 03/08/2022 6:13 PM EDT Bilateral mammography is performed in conjunction with computed aided detection. 3-D tomography along with 2-D C view imaging was also performed. Comparison made to previous dated as far back as 01/11/10 and as recent as . No suspicious masses, areas of architectural distortion or suspicious microcalcifications. Procedure Note Juan Cullen MD - 03/08/2022 Bilateral mammography is performed in conjunction with computed aideddetection. 3-D tomography along with 2-D C view imaging was alsoperformed. Comparison made to previous dated as far back as 01/11/10 and asrecent as . No suspicious masses, areas of architectural distortion or suspiciousmicrocalcifications. IMPRESSION: No mammographic signs of malignancy. Annual screening is recommended. BI-RADS CATEGORY: 1 - Negative. DENSITY: There are scattered fibroglandular densities. us Rito Jin Yousif DO IMG MG EXAMS Final Result * BD DXA AXIAL (SPINE) WITH HIP (03/31/2021 9:03 AM EDT) Anatomical Region Laterality Modality Bone Density Bone Density 03/31/2021 2:22 PM EDT Impressions 03/31/2021 2:26 PM EDT Osteopenia of the lumbar spine (specifically, the L3 vertebral body); and normal bone mineral density of the bilateral total hips. When comparing with the most recent prior from 2019, A decrease in the lumbar spine density. A increase in the right total hip density. A decrease in the left total hip density. Narrative 03/31/2021 2:26 PM EDT Reason for exam (per EHR order): Osteopenia Additional clinical information obtained from the EHR: None. TECHNIQUE: Bone densitometry on [employer] ([id number]). The least significant change for this machine is 0.039 g/cm2 for the lumbar spine, 0.034 g/cm2 for the total hip, and 0.030 g/cm2 for the radius. FINDINGS: Bone Density: Region: AP Spine (L3). BMD (g/cm2): 0.942. T-score: -1.3. Z-score: 0.5. Classification: Osteopenia. Region: Right Femoral Neck. BMD (g/cm2): 0.718. T-score: -1.2. Z-score: 0.8. Region: Right Total Hip. BMD (g/cm2): 0.857. T-score: -0.7. Z-score: 0.5. Classification: Normal. Region: Left Femoral Neck. BMD (g/cm2): 0.705. T-score: -1.3. Z-score: 0.2. Region: Left Total Hip. BMD (g/cm2): 0.839. T-score: -0.8. Z-score: 0.4. Classification: Normal. World Health Organization criteria for BMD interpretation classify patients as: Normal (T-score at or above -1.0), Osteopenia (T-score between -1.0 and -2.5), Osteoporosis (T-score at or below -2.5). Procedure Note Justin Sylvester MD - 03/31/2021 Reason for exam (per EHR order): Osteopenia Additional clinical information obtained from the EHR: None. TECHNIQUE: Bone densitometry on [employer] ([id number]). The leastsignificant change for this machine is 0.039 g/cm2 for the lumbar spine,0.034 g/cm2 for the total hip, and 0.030 g/cm2 for the radius. FINDINGS: Bone Density: Region: AP Spine (L3). BMD (g/cm2): 0.942. T-score: -1.3. Z-score: 0.5. Classification: Osteopenia. Region: Right Femoral Neck. BMD (g/cm2): 0.718. T-score: -1.2. Z-score: 0.8. Region: Right Total Hip. BMD (g/cm2): 0.857. T-score: -0.7. Z-score: 0.5. Classification: Normal. Region: Left Femoral Neck. BMD (g/cm2): 0.705. T-score: -1.3. Z-score: 0.2. Region: Left Total Hip. BMD (g/cm2): 0.839. T-score: -0.8. Z-score: 0.4. Classification: Normal. World Health Organization criteria for BMD interpretation classifypatients as: Normal (T-score at or above -1.0), Osteopenia (T-score between -1.0 and -2.5), Osteoporosis (T-score at or below -2.5). IMPRESSION: Osteopenia of the lumbar spine (specifically, the L3 vertebral body); andnormal bone mineral density of the bilateral total hips. When comparing with the most recent prior from 2019, A decrease in the lumbar spine density. A increase in the right total hip density. A decrease in the left total hip density. us Miguel LESTER BD BONE DENSITY DEXA F inal Result * TSH with reflex (07/03/2019 10:56 AM EST) TSH 0.70 0.27 - 4.20 uIU/mL [facility] Blood 07/03/2019 10:5 6 AM EST 07/03/2019 10:58 AM EST [facility]OD ORDERABLES Final Resul t Performing Organization Address City/[facility]/ZIP Co de Phone Number [address] [address] * (ABNORMAL) Lipid panel (02/15/2019 7:43 AM EDT) Pathologist [facility] HDL 68 mg/dL [facility] Comment: Interpretation <40 mg/dL: Low HDL cholesterol (major risk factor for CHD) Greater than or equal to 60 mg/dL: High HDL cholesterol ( negative risk factor for CHD) HDL - cholesterol is affected by a number of factors, e.g. smoking, excerise, hormones, sex and age. CHOLESTEROL 226 0 - 240 mg/dL [facility] TRIGLYCERIDES 73 30 - 160 mg/dL [facility] LDL 143(H) 50 - 129 mg/dL [facility] Comment: LDL levels in terms of risk for coronary heart disease: <100 mg/dL: Optimal 100-129 mg/dL: Near or above optimal 130-159 mg/dL: Borderline high 160-189 mg/dL: High >190 mg/dL: Very High CARDIAC RISK RATIO 3.3 3.3 - 4.4 [facility] Blood 02/15/2019 7:43 AM EDT 02/15/2019 7:47 AM EDT us Rito A Bigda DO LAB BLOOD ORDERABLES Final Resul t Performing Organization Address City/[facility]/ZIP Co de Phone Number [address] [address] * Hepatitis C viral load (PCR) (07/13/2018 7:50 AM EST) Pathologist [facility] HCV RNA DETECT/QNT Undetected Undetected IU/mL [facility] Comment: (NOTE) Result in log IU/mL is Undetected. ADDITIONAL INFORMATION The quantification range of this assay is 15 to 100,000,000 IU/mL (1.18 log to 8.00 log IU/mL). Testing was performed using the demetrice HCV test ([employer] with the demetrice [employer] System. Blood (Blood) 07/13/2018 7:5 0 AM EST 07/13/2018 8:04 AM EST us Rito Yousif DO NON CULTURE MICROBIOLOGY Final R esult [facility] [address] [place] [address] from Last 3 Months or Most Recently Relevant to Health Maintenance Insurance MEDICARE PART A & B [employer] MEDICARE SUPPLEMENT MEDICARE PART A & B [employer] MEDICARE SUPPLEMENT MEDICARE PART A & B [employer] MEDICARE SUPPLEMENT MEDICARE PART A & B [employer] MEDICARE SUPPLEMENT MEDICARE PART A & B [employer] MEDICARE SUPPLEMENT MEDICARE PART A & B [employer] MEDICARE SUPPLEMENT MEDICARE PART A & B [employer] MEDICARE SUPPLEMENT MEDICARE PART A & B [employer] MEDICARE SUPPLEMENT MEDICARE PART A & B [employer] MEDICARE SUPPLEMENT Care Teams Veterinarian Assistant Relationship Specialty Start Date End Date Rito Yousif DO [address] [place] [address] PCP - General Internal Medicine 03/10/25 Rito Yousif DO Historical LMR Provider 05/23/17 Miguel Baker MD [email or web address] Historical LMR Provider 05/23/17 Amina Metz MD [address] [place] [address] Historical LMR Provider 05/23/17 Milla Villagran MD [address] [place] [address] Orthopedics & Sports Medicine, [facility] [place] [address] Historical LMR Provider 05/23/17 Additional Source Comments The information contained in this document represents components of the legal health record. It is not the complete legal health record.[facility]
--- OUTSIDE RECORDS SUMMARY | 2025-04-03 08:53 | XMS_ITS | Encounter Summary ---
Author Organization [facility] Address [address] [place] [address] Drive [address] [place] [address] Phone Care Team Providers Care Welder Manufacture Name Role Phone Rito Yousif DO Unavailable Miguel Baker MD Unavailable [email or web address] Amina Metz MD Unavailable [phone] Milla Villagran MD Unavailable [phone] Rito Yousif DO Primary Care Provider [phone] Rito Yousif DO Primary Care Provider [phone] Encounter Details Date Type Department Care Team (Late st Contact Info) Description 03/08/2023 Procedure Pass [address] [address] Social History Tobacco Use Types Packs/Day Years [...] on filedocumented in this encounter Care Teams Welder Manufacture Relationship Specialty Start Date End Date Rito Yousif DO PCP - General Internal Medicine 06/16/17 03/09/25 Rito Yousif DO [address] [place] [address] PCP - General Internal Medicine 03/10/25 Rito Yousif DO Historical LMR Provider 05/23/17 Miguel Baker MD [email or web address] Historical LMR Provider 05/23/17 Amina Metz MD [address] [place] [address] Historical LMR Provider 05/23/17 Milla Villagran MD [address] [place] [address] Orthopedics & Sports Medicine, [facility] [place] [address] [email or web address] Historical LMR Provider 05/23/17 documented as of this encounter Additional Source Comments The information contained in this document represents components of the legal health record. It is not the complete legal health record.[facility]
--- OUTSIDE RECORDS SUMMARY | 2025-04-03 08:53 | XMS_ITS | Encounter Summary ---
Author Organization [facility] Address [address] [place] [address] [place] [address] Phone Care Team Providers Care Watch Parts Grinder Name Role Phone Rito Yousif DO Unavailable Miguel Baker MD Unavailable [email or web address] Amina Metz MD Unavailable [phone] Milla Villagran MD Unavailable [phone] Rito Yousif DO Primary Care Provider [phone] Rito Yousif DO Primary Care Provider [phone] Encounter Details Date Type Department Care Team (Late st Contact Info) Description 12/14/2022 Procedure Pass [address] [address] Social History Tobacco Use Types Packs/Day Years [...] on file 12/02/2022 No 12/02/2022 No 12/02/2022 Intimate Partner Violence Answer Date R ecorded [...] on filedocumented in this encounter Care Teams Watch Parts Grinder Relationship Specialty Start Date End Date Rito Yousif DO PCP - General Internal Medicine 06/16/17 03/09/25 Rito Yousif DO [address] [place] [address] PCP - General Internal Medicine 03/10/25 Rito Yousif DO Historical LMR Provider 05/23/17 Miguel Baker MD [email or web address] Historical LMR Provider 05/23/17 Amina Metz MD [address] [place] [address] [email or web address] Historical LMR Provider 05/23/17 Milla Villagran MD [address] [place] [address] Orthopedics & Sports Medicine, [place] [address] Historical LMR Provider 05/23/17 documented as of this encounter Additional Source Comments The information contained in this document represents components of the legal health record. It is not the complete legal health record.[facility]
--- OUTSIDE RECORDS SUMMARY | 2025-04-03 08:53 | XMS_ITS | Encounter Summary ---
Author Organization [facility] Address [address] [place] [address] [place] [address] Phone Care Team Providers Care Broadcast Operations Manager Name Role Phone Rito Yousif DO Unavailable Miguel Baker MD Unavailable [email or web address] Amina Metz MD Unavailable [phone] Milla Villagran MD Unavailable [phone] Rito Yousif DO Primary Care Provider [phone] Rito Yousif DO Primary Care Provider [phone] Encounter Details Date Type Department Care Team (Late st Contact Info) Description 04/03/2023 Ancillary Orders [facility], [facility] [address] [place] [address] Rito Yousif DO [address] [facility] [place] [address] [email or web address] Abnormal finding on mammography Social History Tobacco Use Types Packs/Day Years [...] as of this encounter Results * BI US BREAST LIMITED (RIGHT) (05/02/2023 2:15 PM EDT) Anatomical Region Laterality Modality Breast Right, Breast Bilateral Right U ltrasound 05/02/2023 1:37 PM EDT Impressions 05/02/2023 2:15 PM EDT No imaging findings suspicious for malignancy. Bilateral screening mammography in 03/2024 is recommended. BI-RADS CATEGORY: 2 - Benign finding. The breast tissue is heterogeneously dense, which could obscure a lesion on mammography. Narrative 05/02/2023 2:15 PM EDT HISTORY: Asymmetry on screening right cc view 03/24/2023. COMPARISON: Compared with previous right mammograms as far back as 01/11/2010 and as recent as 03/24/2023 FINDINGS: The asymmetry in the right breast slightly medial to the nipple 5 cm deep to the nipple on 03/24/2023 does not persist on the additional mammographic views. Scanning of the inner right breast by ultrasound is performed. There are no sonographic abnormalities. The finding is consistent with benign superimposed fibroglandular tissue. us Rito Yousif DO IMG US BREAST Final Result * BI MAMMOGRAM DIAGNOSTIC WITH TOMOSYNTHESIS WITH CAD (RIGHT) (05/02/2023 1:04 PM EDT) Anatomical Region Laterality Modality Breast Right, Breast Bilateral Right M ammography 05/02/2023 1:37 PM EDT Impressions 05/02/2023 2:15 PM EDT No imaging findings suspicious for malignancy. Bilateral screening mammography in 03/2024 is recommended. BI-RADS CATEGORY: 2 - Benign finding. The breast tissue is heterogeneously dense, which could obscure a lesion on mammography. Narrative 05/02/2023 2:15 PM EDT HISTORY: Asymmetry on screening right cc view 03/24/2023. COMPARISON: Compared with previous right mammograms as far back as 01/11/2010 and as recent as 03/24/2023 FINDINGS: The asymmetry in the right breast slightly medial to the nipple 5 cm deep to the nipple on 03/24/2023 does not persist on the additional mammographic views. Scanning of the inner right breast by ultrasound is performed. There are no sonographic abnormalities. The finding is consistent with benign superimposed fibroglandular tissue. us Rito Yousif DO IMG MG EXAMS Final Result documented in this encounter Visit Diagnoses Diagnosis Abnormal finding on mammography Abnormal finding on mammography Abnormal finding on mammography documented in this encounter Care Teams Broadcast Operations Manager Relationship Specialty Start Date End Date Rito Yousif DO PCP - General Internal Medicine 06/16/17 03/09/25 Rito Yousif DO [address] [place] [address] PCP - General Internal Medicine 03/10/25 Rito Yousif DO [email or web address] Historical LMR Provider 05/23/17 Miguel Baker MD [email or web address] Historical LMR Provider 05/23/17 Amina Metz MD [address] [place] [address] [email or web address] Historical LMR Provider 05/23/17 Milla Villagran MD [address] [place] [address] Orthopedics & Sports Medicine, [facility] [place] [address] [email or web address] Historical LMR Provider 05/23/17 documented as of this encounter Additional Source Comments The information contained in this document represents components of the legal health record. It is not the complete legal health record.[facility]
--- OUTSIDE RECORDS SUMMARY | 2025-04-03 08:53 | XMS_ITS | Encounter Summary ---
Author Organization [facility] Address [address] [place] [address] [place] [address] Phone Care Team Providers Care Inspector Repairer Sandstone Name Role Phone Rito Yousif DO Unavailable Ed Taylor MD Unavailable [phone] Miguel Baker MD Unavailable [email or web address] Amina Metz MD Unavailable [phone] Milla Villagran MD Unavailable [phone] Rito Yousif DO Primary Care Provider [phone] Rito Yousif DO Primary Care Provider [phone] Encounter Details Date Type Department Care Team (Late st Contact Info) Description 06/16/[address] [facility] Laboratory [address] [place] [address] Rito Yousif DO [address] [facility] [place] [address] [email or web address] Myxedema heart disease (Primary Dx); Hyperlipidemia, unspecified hyperlipidemia type Social History Tobacco Use Types Packs/Day Years Used Date Smoking Tobacco: Never Assessed Comments Unknown Sex and Gender Information Value Date Recorded Sex Assigned at Female 02/14/2020 11:28 AM EDT Legal Sex Female 9:54 PM EDT Gender Identity Female 02/14/2020 11:28 AM EDT Sexual Orientation Straight 02/14/2020 11 :28 AM EDT documented as of this encounter Plan of Treatment Not on file documented as of this encounter Procedures Procedure Name Priority Date/Time Associated Diagnosis Comments COMPREHENSIVE METABOLIC PANEL Routine 06/16/2017 7:13 AM EST Myxedema heart disease Hyperlipidemia, unspecified hyperlipidemia type TSH WITH REFLEX Routine 06/16/2017 7:13 AM EST Myxedema heart disease Hyperlipidemia, unspecified hyperlipidemia type CBC AND DIFFERENTIAL Routine 06/16/2017 7:13 AM EST Myxedema heart disease Hyperlipidemia, unspecified hyperlipidemia type FREE T4 Routine 06/16/2017 7:13 AM EST LIPID PANEL Routine 06/16/2017 7:13 AM EST Myxedema heart disease Hyperlipidemia, unspecified hyperlipidemia type documented in this encounter Results * Free T4 (06/16/2017 7:13 AM EST) FREE T4 1.4 0.9 - 1.7 ng/dL [facility] 06/16/2017 7:13 AM EST 06/16/2017 7:18 AM EST us Unknown Unknown MD LAB BLOOD ORDERABLES Final Re sult Performing Organization Address City/[facility]/ZIP Co de Phone Number [address] [address] * (ABNORMAL) TSH with reflex (06/16/2017 7:13 AM EST) TSH 4.73(H) 0.27 - 4.20 uIU/mL [facility] Blood 06/16/2017 7:13 AM EST 06/16/2017 7:18 AM EST us Rito A Bigda DO LAB BLOOD ORDERABLES Edited Resu lt - Final Performing Organization Address [facility] Co de Phone Number [address] [address] * CBC and differential (06/16/2017 7:13 AM EST) WBC 3.50 3.40 - 11.20 K/uL [facility] RBC 4.39 3.80 - 4.80 M/uL [facility] HGB 13.4 12.0 - 15.0 g/dL [facility] HCT 40.5 36.0 - 46.0 % [facility] PLT 235 130 - 400 K/uL [facility] MCV 92.3 79.0 - 98.0 fL [facility] MCH 30.5 27.0 - 34.8 pg [facility] MCHC 33.1 31.5 - 36.0 g/dL [facility] RDW 12.6 10.8 - 14.6 % [facility] MPV 11.5 9.4 - 12.4 fl [facility] NRBC 0.00 /100 WBCs [facility] ABSOLUTE NRBC 0.00 K/uL [facility] DIFF METHOD Auto [facility] NEUTS 50.5 45.30 - 77.70 % [facility] LYMPHS 32.3 12.30 - 39.70 % [facility] MONOS 10.6 4.10 - 12.80 % [facility] EOS 4.9 0 - 7.2 % [facility] BASOS 1.4 0 - 2.80 % [facility] Granulocytes, immature (%) 0.3 0.0 - 0.9 % [facility] ABSOLUTE NEUTS 1.77 1.40 - 7.70 K/uL [facility] ABSOLUTE LYMPHS 1.13 0.60 - 3.20 K/uL [facility] ABSOLUTE MONOS 0.37 0.11 - 0.59 K/uL [facility] ABSOLUTE EOS 0.17 0.01 - 0.50 K/uL [facility] ABSOLUTE BASOS 0.05 0.00 - 0.08 K/uL [facility] Granulocytes, immature 0.01 0.00 - 0.05 K/uL [facility] Blood 06/16/2017 7:13 AM EST 06/16/2017 7:18 AM EST us Rito A Bigda DO LAB BLOOD ORDERABLES Final Resul t [address] [address] * (ABNORMAL) Lipid panel (06/16/2017 7:13 AM EST) HDL 58 mg/dL [facility] Comment: Interpretation: Risk Level Females Decreased >55mg/dL Average 50-55 mg/dL Increased <50 mg/dL CHOLESTEROL 221 0 - 240 mg/dL [facility] TRIGLYCERIDES 125 30 - 160 mg/dL [facility] LDL 138(H) 50 - 129 mg/dL [facility] Comment: LDL levels in terms of risk for coronary heart disease: <100 mg/dL: Optimal 100-129 mg/dL: Near or above optimal 130-159 mg/dL: Borderline high 160-189 mg/dL: High >190 mg/dL: Very High CARDIAC RISK RATIO 3.8 3.3 - 4.4 C [facility] Blood 06/16/2017 7:13 AM EST 06/16/2017 7:18 AM EST us Rito A Bigda DO LAB BLOOD ORDERABLES Final Resul t [address] [address] * (ABNORMAL) Comprehensive metabolic panel (06/16/2017 7:13 AM EST) Pathologist [facility] SODIUM 143 133 - 146 mmol/L [facility] POTASSIUM 3.9 3.3 - 5.1 mmol/L [facility] CHLORIDE 103 96 - 108 mmol/L [facility] CO2 28 21 - 35 mmol/L [facility] BUN 14 6 - 19 mg/dL [facility] CREATININE 0.60 0.5 - 1.5 mg/dL [facility] GLUCOSE 80 70 - 99 mg/dL [facility] ALBUMIN 3.9 3.9 - 4.8 g/dL [facility] TOTAL PROTEIN 6.3(L) 6.5 - 8.0 g/dL [facility] CALCIUM 9.1 8.4 - 10.3 mg/dL [facility] ALKALINE PHOSPHATASE 60 39 - 117 U/L [facility] TOTAL BILIRUBIN 0.5 0 - 1.2 mg/dL [facility] AST 19 0 - 37 U/L [facility] ALT 17 0 - 40 U/L [facility] GLOBULIN 2.4 1 - 4.8 g/dL [facility] EGFR >60 >60 mL/min/1.7 3m2 [facility] Comment:Abnormal if <60. If patient is -Danish, multiply the result by 1.21. ANION GAP 16 10 - 20 mmol/L [facility] Blood 06/16/2017 7:13 AM EST 06/16/2017 7:18 AM EST us Rito Yousif DO LAB BLOOD ORDERABLES Final Resul t [facility] [address] [place] [address] documented in this encounter Visit Diagnoses Diagnosis Myxedema heart disease- Primary Unspecified hypothyroidism Hyperlipidemia, unspecified hyperlipidemia type documented in this encounter Care Teams Inspector Repairer Sandstone Relationship Specialty Start Date End Date Rito Yousif DO PCP - General Internal Medicine 06/16/17 03/09/25 Rito Yousif DO [address] [place] [address] PCP - General Internal Medicine 03/10/25 Rito Yousif DO Historical LMR Provider 05/23/17 Ed Taylor MD [address] [place] [address] Historical LMR Provider 05/23/17 08/14/21 Miguel Baker MD [email or web address] Historical LMR Provider 05/23/17 Amina Metz MD [address] [place] [address] [email or web address] Historical LMR Provider 05/23/17 Milla Villagran MD [address] [place] [address] Orthopedics & Sports Medicine, [facility] [place] [address] [email or web address] Historical LMR Provider 05/23/17 documented as of this encounter Additional Source Comments The information contained in this document represents components of the legal health record. It is not the complete legal health record.[facility]
--- OUTSIDE RECORDS SUMMARY | 2025-04-03 08:53 | XMS_ITS | Encounter Summary ---
Author Organization [facility] Address [address] [place] [address] [place] [address] Phone Care Team Providers Care Associate Programmer Analyst Name Role Phone Rito Yousif DO Unavailable Ed Taylor MD Unavailable [phone] Miguel Baker MD Unavailable [email or web address] Amina Metz MD Unavailable [phone] Milla Villagran MD Unavailable [phone] Rito Yousif DO Primary Care Provider [phone] Rito Yousif DO Primary Care Provider [phone] Encounter Details Date Type Department Care Team (Late st Contact Info) Description 09/08/2020 Procedure Pass [facility], Ct Scan - [address] [address] Social History Tobacco Use Types Packs/Day Years [...] on filedocumented in this encounter Care Teams Associate Programmer Analyst Relationship Specialty Start Date End Date Rito YousifDO PCP - General Internal Medicine 06/16/17 03/09/25 MagueRito lloydDO [address] [place] [address] PCP - General Internal Medicine 03/10/25 Magueprema Rito AbdiDO Historical LMR Provider 05/23/17 Ed Taylor MD [address] [place] [address] Historical LMR Provider 05/23/17 08/14/21 Miguel Baker MD [email or web address] Historical LMR Provider 05/23/17 Amina Metz MD [address] [place] [address] Historical LMR Provider 05/23/17 Milla Villagran MD [address] [place] [address] Orthopedics & Sports Medicine, [facility] [place] [address] Historical LMR Provider 05/23/17 documented as of this encounter Additional Source Comments The information contained in this document represents components of the legal health record. It is not the complete legal health record.[facility]
--- OUTSIDE RECORDS SUMMARY | 2025-04-03 08:53 | XMS_ITS | Encounter Summary ---
Author Organization [facility] Address [address] [place] [address] [place] [address] Phone Care Team Providers Care Glass Unloading Equipment Tender Name Role Phone Rito Yousif DO Unavailable Miguel Baker MD Unavailable [email or web address] [email or web address] Amina Metz MD Unavailable [phone] Milla Villagran MD Unavailable [phone] Rito Yousif DO Primary Care Provider [phone] Rito Yousif DO Primary Care Provider [phone] Encounter Details Date Type Department Care Team (Late st Contact Info) Description 12/17/2021 Procedure Pass [address] [address] Social History Tobacco Use Types Packs/Day Years [...] on filedocumented in this encounter Care Teams Glass Unloading Equipment Tender Relationship Specialty Start Date End Date Rito Yousif DO PCP - General Internal Medicine 06/16/17 03/09/25 Rito Yousif DO [address] [place] [address] PCP - General Internal Medicine 03/10/25 Rito Yousif DO Historical LMR Provider 05/23/17 Miguel Baker MD [email or web address] Historical LMR Provider 05/23/17 Amina Metz MD [address] [place] [address] [email or web address] Historical LMR Provider 05/23/17 Milla Villagran MD [address] [place] [address] Orthopedics & Sports Medicine, [place] [address] Historical LMR Provider 05/23/17 documented as of this encounter Additional Source Comments The information contained in this document represents components of the legal health record. It is not the complete legal health record.[facility]
--- OUTSIDE RECORDS SUMMARY | 2025-04-03 08:53 | XMS_ITS | Encounter Summary ---
Author Organization [facility] Address [address] [place] [address] [place] [address] Phone Care Team Providers Care Portfolio Director Name Role Phone Rito Yousif DO Unavailable Ed Taylor MD Unavailable [phone] Miguel Baker MD Unavailable [email or web address] [email or web address] Amina Metz MD Unavailable [phone] Milla Villagran MD Unavailable [phone] Rito Yousif DO Primary Care Provider [phone] Rito Yousif DO Primary Care Provider [phone] Encounter Details Date Type Department Care Team (Late st Contact Info) Description 11/27/2018 Ancillary Orders Virtual Department [address] [place] [address] Rito Yousif DO [address] [facility] [place] [address] [email or web address] Breast screening Social History Tobacco Use Types [...] MAMMOGRAM SCREENING WITH TOMOSYNTHESIS WITH CAD (BILATERAL) (02/18/2019 7:45 AM EDT) Anatomical Region Laterality Modality Breast Left, Breast Right, Breast Bilateral Bila teral Mammography 02/18/2019 8:11 AM EDT Impressions 02/18/2019 8:14 AM EDT No mammographic change indicative of malignancy. Routine screening is recommended. BI-RADS CATEGORY: 1 - Negative. DENSITY: There are scattered fibroglandular densities. POS -CDHMAM2 Narrative 02/18/2019 8:14 AM EDT Bilateral full-field digital screening mammography is obtained and read in conjunction with computer-aided detection. Tomosynthesis as well as 2-D C view imaging of both breasts in two planes also obtained. Comparison made to multiple prior, most recent 02/15/2018, and most remote 02/04/2013. No dominant mass, architectural distortion, worrisome asymmetry, or suspicious calcification is identified. No skin or nipple finding of concern is appreciated. Procedure Note Jorge A Melton MD - 02/18/2019 Bilateral full-field digital screening mammography is obtained and read inconjunction with computer-aided detection. Tomosynthesis as well as 2-D Cview imaging of both breasts in two planes also obtained. Comparison madeto multiple prior, most recent 02/15/2018, and most remote 02/04/2013. No dominant mass, architectural distortion, worrisome asymmetry, orsuspicious calcification is identified. No skin or nipple finding ofconcern is appreciated. IMPRESSION: No mammographic change indicative of malignancy. Routine screening isrecommended. BI-RADS CATEGORY: 1 - Negative. DENSITY: There are scattered fibroglandular densities. POS -CDHMAM2 us Rito A Bigda DO IMG MG EXAMS Final Result documented in this encounter Visit Diagnoses Diagnosis Breast screening Breast screening, unspecified Breast screening Breast screening, unspecified documented in this encounter Care Teams Portfolio Director Relationship Specialty Start Date End Date MagueRito lloydDO PCP - General Internal Medicine 06/16/17 03/09/25 Rito Yousif DO [address] [place] [address] PCP - General Internal Medicine 03/10/25 Rito Yousif DO Historical LMR Provider 05/23/17 Ed Taylro MD [address] [place] [address] Historical LMR Provider 05/23/17 08/14/21 Miguel Baker MD [email or web address] Historical LMR Provider 05/23/17 Amina Metz MD [address] [place] [address] Historical LMR Provider 05/23/17 Milla Villagran MD [address] [place] [address] Orthopedics & Sports Medicine, [facility] [place] [address] Historical LMR Provider 05/23/17 documented as of this encounter Additional Source Comments The information contained in this document represents components of the legal health record. It is not the complete legal health record.[facility]
--- OUTSIDE RECORDS SUMMARY | 2025-04-03 08:53 | XMS_ITS | Encounter Summary ---
Author Organization [facility] Address [address] [place] [address] [place] [address] Phone Care Team Providers Care Caregivers Non Medical Name Role Phone Rito Yousif DO Unavailable Ed Taylor MD Unavailable [phone] Miguel Bakre MD Unavailable [email or web address] [email or web address] Amina Metz MD Unavailable [phone] Milla Villagran MD Unavailable [phone] Rito Yousif DO Primary Care Provider [phone] Rito Yousif DO Primary Care Provider [phone] Encounter Details Date Type Department Care Team (Late st Contact Info) Description 12/14/2020 Ancillary Orders Virtual Department [address] [place] [address] Rito Yousif DO [address] [facility] [place] [address] [email or web address] Breast screening Social History Tobacco Use Types [...] MAMMOGRAM SCREENING WITH TOMOSYNTHESIS WITH CAD (BILATERAL) (03/04/2021 8:12 AM EDT) Anatomical Region Laterality Modality Breast Left, Breast Right, Breast Bilateral Bila teral Mammography 03/04/2021 8:09 AM EDT Impressions 03/04/2021 8:18 AM EDT No mammographic evidence of malignancy. Recommend routine annual surveillance. BI-RADS CATEGORY: 2 - Benign finding. DENSITY: There are scattered fibroglandular densities. Narrative 03/04/2021 8:18 AM EDT 65-year-old female with no current breast symptoms. Comparison made to previous on 02/24/2020 and as far back as 02/09/2015. Interpretation made in conjunction with computer-aided detection and tomosynthesis. There are scattered areas of fibroglandular density. Chronic benign left breast macrocalcification. There are no suspicious masses, areas of architectural distortion, or suspicious clusters of microcalcifications. Procedure Note Shon Alvarez MD - 03/04/2021 65-year-old female with no current breast symptoms. Comparison made toprevious on 02/24/2020 and as far back as 02/09/2015. Interpretation made inconjunction with computer-aided detection and tomosynthesis. There are scattered areas of fibroglandular density. Chronic benign leftbreast macrocalcification. There are no suspicious masses, areas of architectural distortion, orsuspicious clusters of microcalcifications. IMPRESSION: No mammographic evidence of malignancy. Recommend routine annualsurveillance. BI-RADS CATEGORY: 2 - Benign finding. DENSITY: There are scattered fibroglandular densities. us Rito A Bigda DO IMG MG EXAMS Final Result documented in this encounter Visit Diagnoses Diagnosis Breast screening Breast screening, unspecified Breast screening Breast screening, unspecified documented in this encounter Care Teams Caregivers Non Medical Relationship Specialty Start Date End Date Bigprema Rito AbdiDO PCP - General Internal Medicine 06/16/17 03/09/25 Rito Yousif JinDO [address] [place] [address] PCP - General Internal Medicine 03/10/25 Rito Yousif DO Historical LMR Provider 05/23/17 Ed Taylor MD [address] [place] [address] Historical LMR Provider 05/23/17 08/14/21 Miguel Baker MD [email or web address] Historical LMR Provider 05/23/17 Amina Metz MD [address] [place] [address] Historical LMR Provider 05/23/17 Milla Villagran MD [address] [place] [address] Orthopedics & Sports Medicine, [facility] [place] [address] Historical LMR Provider 05/23/17 documented as of this encounter Additional Source Comments The information contained in this document represents components of the legal health record. It is not the complete legal health record.[facility]
--- OUTSIDE RECORDS SUMMARY | 2025-04-03 08:53 | XMS_ITS | Encounter Summary ---
Author Organization [facility] Address [address] [place] [address] [place] [address] Phone Care Team Providers Care Spool Cleaner Name Role Phone Rito Yousif DO Unavailable Miguel Baker MD Unavailable [email or web address] Amina Metz MD Unavailable [phone] Milla Villagran MD Unavailable [phone] Rito Yousif DO Primary Care Provider [phone] Rito Yousif DO Primary Care Provider [phone] Encounter Details Date Type Department Care Team (Late st Contact Info) Description 09/27/2022 Ancillary Orders [facility], X-Ray - [address] [address] Tj Parisi, DO [address] [place] [address] [email or web address] Left knee pain, unspecified chronicity Social History Tobacco Use Types Packs/Day Years Used Date Smoking Tobacco: Never Smokeless Tobacco: Never Comments:Both parents smoked in the house I was raised in. Alcohol Use Standard Drinks/Week Comments No 0 (1 standard drink = 0.6 oz pur e alcohol) Intimate Partner Violence Answer Date R ecorded [...] documented as of this encounter Results * XR KNEE 4 OR MORE VIEWS (LEFT) (09/27/2022 11:16 AM EST) Anatomical Region Laterality Modality Knee Left Computed Radiogr aphy 09/27/2022 7:26 PM EST Impressions 09/27/2022 7:27 PM EST Mild degenerative change. No acute osseous abnormality. Narrative 09/27/2022 7:27 PM EST XR KNEE 4 OR MORE VIEWS (LEFT) COMPARISON: No relevant comparison. FINDINGS: Left Knee: No fracture or dislocation. Mild medial joint space narrowing. No substantial joint effusion. Mild lateral patellar translation. Partially visualized right knee shows mild medial joint space narrowing without acute osseous abnormality. Procedure Note Saqib Fuentes MD - 09/27/2022 XR KNEE 4 OR MORE VIEWS (LEFT) COMPARISON: No relevant comparison. FINDINGS: Left Knee: No fracture or dislocation. Mild medial joint space narrowing.No substantial joint effusion. Mild lateral patellar translation. Partially visualized right knee shows mild medial joint space narrowingwithout acute osseous abnormality. IMPRESSION: Mild degenerative change. No acute osseous abnormality. us Tj Parisi DO IMG XR LOWER EXTREMITY Final Result documented in this encounter Visit Diagnoses Diagnosis Left knee pain, unspecified chronicity Left knee pain, unspecified chronicity documented in this encounter Care Teams Spool Cleaner Relationship Specialty Start Date End Date Rito Yousif DO PCP - General Internal Medicine 06/16/17 03/09/25 Rito Yousif DO [address] [place] [address] PCP - General Internal Medicine 03/10/25 Rito Yousif DO Historical LMR Provider 05/23/17 Miguel Baker MD [email or web address] Historical LMR Provider 05/23/17 Amina Metz MD [address] [place] [address] Historical LMR Provider 05/23/17 Milla Villagran MD [address] [place] [address] Orthopedics & Sports Medicine, [facility] [place] [address] Historical LMR Provider 05/23/17 documented as of this encounter Additional Source Comments The information contained in this document represents components of the legal health record. It is not the complete legal health record.[facility]
--- OUTSIDE RECORDS SUMMARY | 2025-04-03 08:53 | XMS_ITS | Encounter Summary ---
Author Organization [facility] Address [address] [place] [address] [place] [address] Phone Care Team Providers Care Crop Duster Helper Name Role Phone Rito Yousif DO Unavailable Ed Taylor MD Unavailable [phone] Miguel Baker MD Un[address] [email or web address] Amina Metz MD Unavailable [phone] Milla Villagran MD Unavailable [phone] Rito Yousif DO Primary Care Provider [phone] Rito Yousif DO Primary Care Provider [phone] Encounter Details Date Type Department Care Team (Late st Contact Info) Description 12/14/2020 Procedure Pass [address] [address] Social History Tobacco Use Types Packs/Day Years [...] on filedocumented in this encounter Care Teams Crop Duster Helper Relationship Specialty Start Date End Date Rito YousifDO PCP - General Internal Medicine 06/16/17 03/09/25 MagueRito lloydDO [address] [place] [address] PCP - General Internal Medicine 03/10/25 Magueprema Rito AbdiDO Historical LMR Provider 05/23/17 Ed Taylor MD [address] [place] [address] Historical LMR Provider 05/23/17 08/14/21 Miguel Baker MD [email or web address] Historical LMR Provider 05/23/17 Amina Metz MD [address] [place] [address] Historical LMR Provider 05/23/17 Mlila Villagran MD [address] [place] [address] Orthopedics & Sports Medicine, [facility] [place] [address] Historical LMR Provider 05/23/17 documented as of this encounter Additional Source Comments The information contained in this document represents components of the legal health record. It is not the complete legal health record.[facility]
--- OUTSIDE RECORDS SUMMARY | 2025-04-03 08:53 | XMS_ITS | Encounter Summary ---
Author Organization [facility] Address [address] [place] [address] [place] [address] Phone Care Team Providers Care Academic Coordinator Name Role Phone Rito Yousif DO Unavailable Ed Taylor MD Unavailable [phone] Miguel Baker MD Unavailable [email or web address] Amina Metz MD Unavailable [phone] Milla Villagran MD Unavailable [phone] Rito Yousif DO Primary Care Provider [phone] Rito Yousif DO Primary Care Provider [phone] Encounter Details Date Type Department Care Team (Late st Contact Info) Description 08/18/2020 Procedure Pass [facility], [address] [address] Social History Tobacco Use Types Packs/Day Years [...] AM EDT documented as of this encounter Last Filed Vital Signs Vital Sign Reading Time Taken Comments Blood Pressure - - Pulse - - Temperature - - Respiratory Rate - - Oxygen Saturation - - Inhaled Oxygen Concentration - - Weight 72.6 kg (160 lb) 08/21/2020 2:57 PM EST Height 154.9 cm (5' 1 ) 08/21/2020 2:57 PM EST Body Mass Index 30.23 08/21/2020 2:57 PM EST documented in this encounter Plan of Treatment Not on file documented as of this encounter Visit Diagnoses Not on filedocumented in this encounter Care Teams Academic Coordinator Relationship Specialty Start Date End Date Rito Yousif DO PCP - General Internal Medicine 06/16/17 03/09/25 Rito Yousif DO [address] [place] [address] PCP - General Internal Medicine 03/10/25 Rito Yousif DO Historical LMR Provider 05/23/17 Ed Taylor MD [address] [place] [address] Historical LMR Provider 05/23/17 08/14/21 Miguel Baker MD [email or web address] Historical LMR Provider 05/23/17 Amina Metz MD [address] [place] [address] Historical LMR Provider 05/23/17 Milla Villagran MD [address] [place] [address] Orthopedics & Sports Medicine, [facility] [place] [address] [email or web address] Historical LMR Provider 05/23/17 documented as of this encounter Additional Source Comments The information contained in this document represents components of the legal health record. It is not the complete legal health record.[facility]
--- OUTSIDE RECORDS SUMMARY | 2025-04-03 08:53 | XMS_ITS | Encounter Summary ---
Author Organization [facility] Address [address] [place] [address] [place] [address] Phone Care Team Providers Care Woodworking Craftsman Name Role Phone Rito Yousif DO Unavailable Miguel Baker MD Unavailable [email or web address] Amina Metz MD Unavailable [phone] Milla Villagran MD Unavailable [phone] Rito Yousif DO Primary Care Provider [phone] Rito Yousif DO Primary Care Provider [phone] Reason for Visit * Reason Comments Medication Refill Encounter Details Date Type Department Care Team (Late st Contact Info) Description 05/09/2022 Refill [facility] Rheumatology [address] [place] [address] Miguel Baker MD [email or web address] Medication Refill Social History Tobacco Use Types Packs/Day Years [...] AM EDT documented as of this encounter Progress Notes * Bety King - 05/12/2022 1:45 PM EDT Received form from [facility] requesting this medication. They said that they received a denial because patient unknown to prescriber. They said that the prescription was originally prescribedthis office back. Faxed reply to pharmacy stating that original prescriber is no longer in the office and the patient is no longer a patient of our office. Last appointment was cancelled because patient sought care elsewhere. * Bety King - 05/10/2022 10:35 AM EDT Called and left message notifying patient to fill with PCP or get OTC. Also requested that patient call back office to schedule a follow up appointment. * Milla Ackerman MD - 05/09/2022 4:22 PM EDT If she needs prescriptions should ask the PCP since I have not seen her. * Bety King - 05/09/2022 2:41 PM EDT Needs labs and follow up appointment. Lab orders pended. Will attempt to contact patient to schedule follow up when orders have been placed. Former patient of Dr. Daniels and Dr. Baker. To covering provider: Medication refill Last office visit: 10/21/2021 AV Next office visit: No upcoming appointment at this time Outside Lab: 08/03/2021 documented in this encounter Plan of Treatment Not on file documented as of this encounter Visit Diagnoses Diagnosis Primary osteoarthritis, right ankle and foot documented in this encounter Care Teams Woodworking Craftsman Relationship Specialty Start Date End Date Rito Yousif DO PCP - General Internal Medicine 06/16/17 03/09/25 Rito Yousif DO [address] [place] [address] PCP - General Internal Medicine 03/10/25 Rito Yousif DO Historical LMR Provider 05/23/17 Miguel Baker MD [email or web address] Historical LMR Provider 05/23/17 Amina Metz MD [address] [place] [address] [email or web address] Historical LMR Provider 05/23/17 Milla Villagran MD [address] [place] [address] Orthopedics & Sports Medicine, [facility] [place] [address] Historical LMR Provider 05/23/17 documented as of this encounter Additional Source Comments The information contained in this document represents components of the legal health record. It is not the complete legal health record.[facility]
--- OUTSIDE RECORDS SUMMARY | 2025-04-03 08:53 | XMS_ITS | Encounter Summary ---
Author Organization [facility] Address [address] [place] [address] [place] [address] Phone Care Team Providers Care Test Lead Application Testing Name Role Phone Rito Yousif DO Unavailable Miguel Baker MD Unavailable [email or web address] Amina Metz MD Unavailable [phone] Milla Villagran MD Unavailable [phone] Rito Yousif DO Primary Care Provider [phone] Rito Yousif DO Primary Care Provider [phone] Encounter Details Date Type Department Care Team (Late st Contact Info) Description 12/16/2022 Procedure Pass [address] [address] Social History Tobacco Use Types Packs/Day Years [...] on filedocumented in this encounter Care Teams Test Lead Application Testing Relationship Specialty Start Date End Date Rito Yousif DO PCP - General Internal Medicine 06/16/17 03/09/25 Rito Yousif DO [address] [place] [address] PCP - General Internal Medicine 03/10/25 Rito Yousif DO Historical LMR Provider 05/23/17 Miguel Baker MD [email or web address] Historical LMR Provider 05/23/17 Amina Metz MD [address] [place] [address] [email or web address] Historical LMR Provider 05/23/17 Milla Villagran MD [address] [place] [address] Orthopedics & Sports Medicine, [place] [address] Historical LMR Provider 05/23/17 documented as of this encounter Additional Source Comments The information contained in this document represents components of the legal health record. It is not the complete legal health record.[facility]
--- OUTSIDE RECORDS SUMMARY | 2025-04-03 08:53 | XMS_ITS | Encounter Summary ---
Author Organization [facility] Address [address] [place] [address] [place] [address] Phone Care Team Providers Care Bolt Labeler Name Role Phone Rito Yousif DO Unavailable Ed Taylor MD Unavailable [phone] Miguel Baker MD Unavailable [email or web address] Amina Metz MD Unavailable [phone] Milla Villagran MD Unavailable [phone] Rito Yousif DO Primary Care Provider [phone] Rito Yousif DO Primary Care Provider [phone] Reason for Referral * MRI/CAT Scan - Closed Specialty Diagnoses / Procedures Referred By Contac t Referred To Contact Radiology Diagnoses Spinal stenosis of lumbar region without neurogenic claudication Procedures CT Lumbar Spine Randy Barcenas MD [address] [place] [address] Dr [address] [place] [address] Phone: tel: fax: Referral ID Status Reason Start Date Expiration Date Visits Re quested Visits Authorized [id number] Closed 09/08/2020 09/08/2021 1 1 Encounter Details Date Type Department Care Team (Latest Contact Info) Description 09/08/2020 Ancillary Orders Virtual Department [address] [place] [address] Randy Barcenas MD [address] [place] [address] Dr [address]Neu[facility] [place] [address] Spinal stenosis of lumbar region without neurogenic claudication Social History Tobacco Use Types Packs/Day Years [...] documented as of this encounter Results * CT LUMBAR SPINE WITHOUT CONTRAST (09/10/2020 3:25 PM EST) Anatomical Region Laterality Modality L-spine Computed Tomogra phy 09/10/2020 3:29 PM EST Impressions 09/10/2020 3:52 PM EST 1. No findings suspicious for compression fractures. 2. Multilevel central canal stenosis, most prominent at L2-L3. 3. Multilevel neuroforaminal narrowing, most severe at L4-L5 on the left. 4. Multilevel facet arthropathy, physically severe at L4-L5 and L5-S1. 5. Multilevel degenerative disc and endplate changes, most severe at L1-L2. 6. Scoliosis. Narrative 09/10/2020 3:52 PM EST HISTORY: Pain, neurogenic claudication, spinal stenosis. COMPARISON: MRI lumbar spine 08/27/2020. TECHNIQUE: A non-enhanced study performed. Scanning performed from superior endplate of T12-S1. FINDINGS: Evidence of a levoscoliotic deformity involving the thoracolumbar spine. Vertebrae: Mild anterior wedging of the body of L1 is likely physiologic. No other evidence of compression fractures. Grade 1 spondylolisthesis mentioned on recent MRI appears stable. Approximately 8 mm of subluxation of L4 and L5. Retrolisthesis of L1 on L2 and, to a lesser degree T12 on L1 and T2 on L3. No suspicious lytic or blastic lesions within the bones. T12-L1: Vacuum disc phenomenon with disc space narrowing. Mild degenerative endplate changes. Mild bilateral facet arthropathy. Mild central canal stenosis. L1-L2: Severe degenerative disc and endplate changes. Mild central canal stenosis. Moderate bilateral facet arthropathy. Similar severe neuroforaminal narrowing on the right. L2-L3: Broad-based disc-osteophyte complex. Moderate bilateral facet arthropathy with thickening of ligamentum flavum. Moderate central canal stenosis. At least moderate neuroforaminal narrowing on the right and, to a lesser degree on the left. L3-L4: Disc height well-maintained. Small broad-based disc-osteophyte complex. Moderate to severe bilateral facet arthropathy. Mild-moderate central canal stenosis. No high-grade neuroforaminal narrowing evident. L4-L5: Degenerative disc and endplate changes. Grade 1 spondylosis of L4 and L5 and broad-based disc protrusion severe bilateral facet arthropathy. Mild-moderate central canal stenosis. Bilateral laminectomy defects. Severe neuroforaminal narrowing on the left and, to a slightly lesser degree on the right. L5-S1: Disc height well-maintained. No central canal stenosis. Severe facet arthropathy more so on right than left. Mild bilateral neuroforaminal narrowing. Soft tissues: No evidence of paravertebral masses. Procedure Note Juan Rubin MD - 09/10/2020 HISTORY: Pain, neurogenic claudication, spinal stenosis. COMPARISON: MRI lumbar spine 08/27/2020. TECHNIQUE: A non-enhanced study performed. Scanning performed fromsuperior endplate of T12-S1. FINDINGS: Evidence of a levoscoliotic deformity involving the thoracolumbar spine. Vertebrae: Mild anterior wedging of the body of L1 is likely physiologic.No other evidence of compression fractures. Grade 1 spondylolisthesismentioned on recent MRI appears stable. Approximately 8 mm of subluxationof L4 and L5. Retrolisthesis of L1 on L2 and, to a lesser degree T12 on L1and T2 on L3. No suspicious lytic or blastic lesions within the bones. T12-L1: Vacuum disc phenomenon with disc space narrowing. Milddegenerative endplate changes. Mild bilateral facet arthropathy. Mildcentral canal stenosis. L1-L2: Severe degenerative disc and endplate changes. Mild central canalstenosis. Moderate bilateral facet arthropathy. Similar severeneuroforaminal narrowing on the right. L2-L3: Broad-based disc-osteophyte complex. Moderate bilateral facetarthropathy with thickening of ligamentum flavum. Moderate central canalstenosis. At least moderate neuroforaminal narrowing on the right and, toa lesser degree on the left. L3-L4: Disc height well-maintained. Small broad-based disc-osteophytecomplex. Moderate to severe bilateral facet arthropathy. Mild-moderatecentral canal stenosis. No high-grade neuroforaminal narrowing evident. L4-L5: Degenerative disc and endplate changes. Grade 1 spondylosis of L4and L5 and broad-based disc protrusion severe bilateral facet arthropathy.Mild-moderate central canal stenosis. Bilateral laminectomy defects.Severe neuroforaminal narrowing on the left and, to a slightly lesserdegree on the right. L5-S1: Disc height well-maintained. No central canal stenosis. Severefacet arthropathy more so on right than left. Mild bilateralneuroforaminal narrowing. Soft tissues: No evidence of paravertebral masses. IMPRESSION: 1. No findings suspicious for compression fractures. 2. Multilevel central canal stenosis, most prominent at L2-L3. 3. Multilevel neuroforaminal narrowing, most severe at L4-L5 on theleft. 4. Multilevel facet arthropathy, physically severe at L4-L5 and L5-S1. 5. Multilevel degenerative disc and endplate changes, most severe atL1-L2. 6. Scoliosis. Randy Barcenas MD [facility] CT XSPECIALTY ORDERA BLES Final Result documented in this encounter Visit Diagnoses Diagnosis Spinal stenosis of lumbar region without neurogenic claudication Spinal stenosis of lumbar region without neurogenic claudication documented in this encounter Care Teams Bolt Labeler Relationship Specialty Start Date End Date Rito Yousif DO PCP - General Internal Medicine 06/16/17 03/09/25 Rito Yousif DO [address] [place] [address] PCP - General Internal Medicine 03/10/25 Rito Yousif DO Historical LMR Provider 05/23/17 Ed Taylor MD [address] [place] [address] Historical LMR Provider 05/23/17 08/14/21 Miguel Baker MD [email or web address] Historical LMR Provider 05/23/17 Amina Metz MD [address] [place] [address] [email or web address] Historical LMR Provider 05/23/17 Milla Villagran MD [address] [place] [address] Orthopedics & Sports Medicine, [place] [address] [email or web address] Historical LMR Provider 05/23/17 documented as of this encounter Additional Source Comments The information contained in this document represents components of the legal health record. It is not the complete legal health record.[facility]
--- OUTSIDE RECORDS SUMMARY | 2025-04-03 08:53 | XMS_ITS | Encounter Summary ---
Author Organization [facility] Address [address] [place] [address] [place] [address] Phone Care Team Providers Care Shift Lab Technician Name Role Phone Rito Yousif DO Unavailable Ed Taylor MD Unavailable [phone] Miguel Baker MD Unavailable [email or web address] Amina Metz MD Unavailable [phone] Milla Villagran MD Unavailable [phone] Rito Yousif DO Primary Care Provider [phone] Rito Yousif DO Primary Care Provider [phone] Encounter Details Date Type Department Care Team (Late st Contact Info) Description 01/05/2018 Ancillary Orders Virtual Department [address] [place] [address] Rito Yousif DO [address] [place] [address] [email or web address] Breast screening Social History Tobacco Use Types Packs/Day Years Used Date Smoking Tobacco: Never Smokeless Tobacco: Never Alcohol Use Standard Drinks/Week Comments No 0 (1 standard drink = 0.6 oz pur e alcohol) Comments Unknown Sex and Gender Information Value [...] MAMMOGRAM SCREENING WITH TOMOSYNTHESIS WITH CAD (BILATERAL) (02/15/2018 7:46 AM EDT) Anatomical Region Laterality Modality Breast Left, Breast Right, Breast Bilateral Bila teral Mammography 02/15/2018 2:05 PM EDT Impressions 02/15/2018 2:06 PM EDT No mammographic evidence of malignancy. RECOMMENDED FOLLOWUP: Routine screening mammography is recommended, as clinically appropriate. These results will be sent to the patient. BI-RADS CATEGORY: 1 - Negative. BREAST DENSITY: There are scattered fibroglandular densities. POS - CDHMAM2 Narrative 02/15/2018 2:06 PM EDT BILATERAL DIGITAL SCREENING MAMMOGRAM (WITH DIGITAL BREAST TOMOSYNTHESIS AND R2 COMPUTER GRAPHICS ILLUSTRATOR) HISTORY: Screening. COMPARISON: Mammograms dating back to 2011, most recently 02/14/2017. TECHNIQUE: Digital breast tomosynthesis was performed in craniocaudal and mediolateral oblique projections. Reconstructed screening 2-D views were generated from the tomosynthesis images. Images were interpreted in conjunction with R-2 Image Prawn Trawler Hand computer-aided detection. FINDINGS: Breast density: There are scattered fibroglandular densities. There are no suspicious masses, suspicious areas of architectural distortion or suspicious clusters of microcalcifications. Procedure Note Nneka Peter MD - 02/15/2018 BILATERAL DIGITAL SCREENING MAMMOGRAM (WITH DIGITAL BREAST TOMOSYNTHESISAND R2 COMPUTER GRAPHICS ILLUSTRATOR) HISTORY: Screening. COMPARISON: Mammograms dating back to 2011, most recently 02/14/2017. TECHNIQUE: Digital breast tomosynthesis was performed in craniocaudal andmediolateral oblique projections. Reconstructed screening 2-D views weregenerated from the tomosynthesis images. Images were interpreted inconjunction with R-2 Image Prawn Trawler Hand computer-aided detection. FINDINGS: Breast density: There are scattered fibroglandular densities. There are no suspicious masses, suspicious areas of architecturaldistortion or suspicious clusters of microcalcifications. IMPRESSION: No mammographic evidence of malignancy. RECOMMENDED FOLLOWUP: Routine screening mammography is recommended, asclinically appropriate. These results will be sent to the patient. BI-RADS CATEGORY: 1 - Negative. BREAST DENSITY: There are scattered fibroglandular densities. POS - CDHMAM2 us Rito Abdi Nica REED IMG MG EXAMS Final Result documented in this encounter Visit Diagnoses Diagnosis Breast screening Breast screening, unspecified Breast screening Breast screening, unspecified documented in this encounter Care Teams Shift Lab Technician Relationship Specialty Start Date End Date Rito Yousif DO PCP - General Internal Medicine 06/16/17 03/09/25 Rito Yousif DO [address] [place] [address] PCP - General Internal Medicine 03/10/25 Rito Yousif DO Historical LMR Provider 05/23/17 Ed Taylor MD [address] [place] [address] Historical LMR Provider 05/23/17 08/14/21 Miguel Baker MD [email or web address] Historical LMR Provider 05/23/17 Amina Metz MD [address] [place] [address] Historical LMR Provider 05/23/17 Milla Villagran MD [address] [place] [address] Orthopedics & Sports Medicine, [facility] [place] [address] [email or web address] Historical LMR Provider 05/23/17 documented as of this encounter Additional Source Comments The information contained in this document represents components of the legal health record. It is not the complete legal health record.[facility]
--- OUTSIDE RECORDS SUMMARY | 2025-04-03 08:53 | XMS_ITS | Patient Health Record ---
Author Organization [facility] nataly GardnerVenancio Address [address] [facility] [place] [address] Care Team Providers Care Engineering Scientist Name Role Phone Rito Yousif MD Primary Care Provider Carmenza Llanes Unavailable [phone] Allergies Allergen (clinical drug ingredient) Drug/Non Drug Allergy documented on EMR Reaction Allergy Type Onset Date Status Substance with 7-zxhqtta-6-methylgluta ryl-coenzyme A reductase inhibitor mechanism of action (substance) Statins Unknown Drug Allergy Active Reason For Referral No Information Medications Medication SIG (Take, Route, Frequency, Duration) Notes Start Date End Date Status Physical Therapy . . . Gait training after 1st MPJ fusion Right foot in Aug; Duration: 45 days 11/06/2024 Active Synthroid 125 MCG Oral; Duration: 90 Days Active traMADol HCl 50 MG TAKE 1 TO 2 TABLETS BY MOUTH EVERY 6 HOURS NEEDED Oral; Duration: 15 Days Active amLODIPine Besylate 5 MG Oral; Duration: 90 Days Active Gabapentin 600 MG Oral; Duration: 90 Days Active Percocet 5-325 MG 1-2 tablet as needed Orally every 4-6 hrs; Duration: 3 days Partial Fill upon Patient Request 08/15/2024 Active Montelukast Sodium 10 MG Oral; Duration: 90 Days Active ProAir RespiClick 108 (90 Base) MCG/ACT Inhalation; Duration: 17 Days Active Esomeprazole Magnesium 40 MG Oral; Duration: 90 Days Not-Taking Keflex 500 MG 1 capsule Orally every 12 hrs; Duration: 7 days 08/19/2024 Active Mupirocin 2 % 1 application Externally Apply to right foot incision every other day; Duration: 30 days 09/10/2024 Active Social History Tobacco Use: Social History Observation Description Date Details (start date - stop date) Never Smoker NA - NA Tobacco Use/Smoking Question Answer Notes Are you a: nonsmoker Additional Findings: Tobacco Non-User Current no n-smoker Alcohol Screen Question Answer Notes Did you have a drink containing alcohol in the p ast year? No Points 0 Interpretation Negative Tobacco use other than smoking: Question Answer Notes Are you an other tobacco user? No Problems Problem Type SNOMED Code ICD Code Onset Dates Problem Status W/U Status Risk Notes Problem Acquired hallux valgus (94498033) Hallux valgus (acquired), left foot (M20.12) Active confirmed Problem Acquired hallux valgus (81989833) Hallux valgus (acquired), right foot (M20.11) Active confirmed Problem Acquired hammer toe of right foot (088852318335659 5) Other hammer toe(s) (acquired), right foot (M20.41) Active confirmed Problem Acquired hammer toe of left foot (563499734885803 3) Other hammer toe(s) (acquired), left foot (M20.42) Active confirmed Problem Acquired hallux rigidus (5899995) Hallux rigidus, right foot (M20.21) Active confirmed Problem Essential hypertension (40195227) Essential hypertension (I10) Active confirmed Vital Signs Blood pressure diastolic 80 mm Hg 11/06/2024 Height 5ft1in in 11/06/2024 Blood pressure systolic 130 mm Hg 11/06/2024 Weight 150 lbs 11/06/2024 BMI 28.34 kg/m2 11/06/2024 Encounters Encounter Location Date Provider Diagnosis [facility] ([facility] [address] [place] [address] 08/14/2024 Carmenza Bronson [facility] [place] [address] [place] [address] 07/24/2024 Carmenza Bronson Hallux rigidus, righ t foot M20.21 ; Pain in right ankle and joints of right foot M25.571 ; Bursitis of right foot M77.51 ; Hallux valgus (acquired), right foot M20.11 and Other hammer toe(s) (acquired), right foot M20.41 [facility] [address] [address] 08/19/2024 Carmenza Perica Hallux rigidus, righ t foot M20.21 ; Other hammer toe(s) (acquired), right foot M20.41 and Local edema R60.[address] [address] 08/28/2024 Carmenza Perica Hallux rigidus, righ t foot M20.21 ; Other hammer toe(s) (acquired), right foot M20.41 ; Local edema R60.0 and Dehiscence of operative wound, initial encounter T81.31XA [address] [address] 09/04/2024 Carmenza Perica Hallux rigidus, righ t foot M20.21 ; Other hammer toe(s) (acquired), right foot M20.41 ; Local edema R60.0 and Allergic dermatitis L23.[address] [address] 09/10/2024 Carmenza Perica Hallux rigidus, righ t foot M20.21 ; Other hammer toe(s) (acquired), right foot M20.41 ; Local edema R60.0 ; Allergic dermatitis L23.9 and Dehiscence of operative wound, initial encounter T81.31XA [address] [address] 09/17/2024 Carmenza Perica Hallux rigidus, righ t foot M20.21 ; Other hammer toe(s) (acquired), right foot M20.41 ; Local edema R60.0 ; Allergic dermatitis L23.9 and Dehiscence of operative wound, subsequent encounter T81.31XD [address] [address] 10/01/2024 Carmenza Perica Hallux rigidus, righ t foot M20.21 ; Other hammer toe(s) (acquired), right foot M20.41 ; Dehiscence of operative wound, subsequent encounter T81.31XD and Postoperative visit Z48.[address] [address] 11/06/2024 Carmenza Bronson Hallux rigidus, righ t foot M20.21 ; Postoperative visit Z48.89 ; Other hammer toe(s) (acquired), right foot M20.41 and Ingrown nail L60.0 [facility] [place] [address] [place] [address] 08/15/2024 Carmenza Bronson [facility] [address] [address] 08/15/20[facility] [place] [address] [place] [address] 08/28/2024 Carmenza Bronson Assessments Encounter Date Diagnosis (ICD Code) Assessment Notes Treatment Notes Treatment Clinical Notes Section Notes 07/24/2024 Pain in right ankle and joints of right foot (ICD-10 - M25.571) 07/24/2024 Hallux rigidus, right foot (ICD-10 - M20.21) 08/19/2024 Other hammer toe(s) (acquired), right foot (ICD-10 - M20.41) 08/19/2024 Hallux rigidus, right foot (ICD-10 - M20.21) 08/28/2024 Other hammer toe(s) (acquired), right foot (ICD-10 - M20.41) 08/28/2024 Hallux rigidus, right foot (ICD-10 - M20.21) 09/04/2024 Other hammer toe(s) (acquired), right foot (ICD-10 - M20.41) 09/04/2024 Hallux rigidus, right foot (ICD-10 - M20.21) 09/10/2024 Other hammer toe(s) (acquired), right foot (ICD-10 - M20.41) 09/10/2024 Hallux rigidus, right foot (ICD-10 - M20.21) 09/17/2024 Other hammer toe(s) (acquired), right foot (ICD-10 - M20.41) 09/17/2024 Hallux rigidus, right foot (ICD-10 - M20.21) 10/01/2024 Other hammer toe(s) (acquired), right foot (ICD-10 - M20.41) 10/01/2024 Hallux rigidus, right foot (ICD-10 - M20.21) 11/06/2024 Hallux rigidus, right foot (ICD-10 - M20.21) 11/06/2024 Postoperative visit (ICD-10 - Z48.89) 11/06/2024 Other hammer toe(s) (acquired), right foot (ICD-10 - M20.41) 09/10/2024 Local edema (ICD-10 - R60.0) 09/17/2024 Local edema (ICD-10 - R60.0) 10/01/2024 Dehiscence of operative wound, subsequent encounter (ICD-10 - T81.31XD) 08/28/2024 Local edema (ICD-10 - R60.0) 09/04/2024 Local edema (ICD-10 - R60.0) 08/19/2024 Local edema (ICD-10 - R60.0) 07/24/2024 Bursitis of right foot (ICD-10 - M77.51) 07/24/2024 Hallux valgus (acquired), right foot (ICD-10 - M20.11) 08/28/2024 Dehiscence of operative wound, initial encounter (ICD-10 - T81.31XA) 09/04/2024 Allergic dermatitis (ICD-10 - L23.9) 09/10/2024 Allergic dermatitis (ICD-10 - L23.9) 10/01/2024 Postoperative visit (ICD-10 - Z48.89) 09/17/2024 Allergic dermatitis (ICD-10 - L23.9) 11/06/2024 Ingrown nail (ICD-10 - L60.0) 09/17/2024 Dehiscence of operative wound, subsequent encounter (ICD-10 - T81.31XD) 09/10/2024 Dehiscence of operative wound, initial encounter (ICD-10 - T81.31XA) 07/24/2024 Other hammer toe(s) (acquired), right foot (ICD-10 - M20.41) Plan Of Treatment Pending Test Test Name Order Date X ray : Foot, left 3V 05/10/2023 X ray : Foot, right 3V 01/02/2024 X ray : Foot, right 3V 07/24/2024 X ray : Foot, right 3V 08/19/2024 X ray : Foot, right 3V 08/28/2024 X ray : Foot, right 3V 09/04/2024 X ray : Foot, right 3V 09/10/2024 X ray : Foot, right 3V 09/17/2024 X ray : Foot, right 3V 10/01/2024 X ray : Foot, right 3V 11/06/2024 X ray : Foot, right 3V 05/10/2023 Insurance Providers Payer Name Payer Address Payer Phone Subscriber Number Group Number Insured Name Patient Relationship to Insured Coverage Start Date Coverage End Date Medicare National Govt [facility] [address] [place] [address] [id number] Edita Suárez Self - patient is the insured Drimki [address] [place] [address] [id number] Silvio Suárez Spouse - patient is the spouse of the insured Medical (General) History Medical History History ICD Code Arthritis asthma Back,Hip,and Knee pain Broken bones Cataracts covid-19 Headaches/Migraines Hiatal hernia High blood pressure Lyme disease Numbness raynauds disease Reflux ( GERD) Sciatica chronic sinusitis thyroid Measles Mumps Chicken pox Joint implants/screws Osteoporosis Surgical History Surgery Date(Month/Year) Fusion L4-L5 09/2021 cataract surgery 2013 Right shoulder repair 01/2020 total Hysterectomy 2001 1st MPJ Fusion Right, Hammertoe Repair R ight 2nd Toe 08/14/24
--- OUTSIDE RECORDS SUMMARY | 2025-04-03 08:53 | XMS_ITS | Encounter Summary ---
Author Organization [facility] Address [address] [place] [address] Drive [address] [place] [address] Phone Care Team Providers Care Installation And Repair Technician Name Role Phone Rito Yousif DO Unavailable Miguel Baker MD Unavailable [email or web address] Amina Metz MD Unavailable [phone] Milla Villagran MD Unavailable [phone] Rito Yousif DO Primary Care Provider [phone] Encounter Details Date Type Department Care Team (Late st Contact Info) Description 03/10/2025 Ancillary Orders [facility], X-Ray - [address] [address] Zuleyka Mcfarland PA [address] [facility] [place] [address] [place] [address] Left leg pain (Primary Dx) Social History Tobacco Use Types Packs/Day Years [...] as of this encounter Results * XR Tibia Fibula 2 Views (Left) (03/10/2025 4:45 PM EDT) Anatomical Region Laterality Modality Leg Left Computed Radiogr aphy 03/11/2025 9:32 AM EDT Impressions 03/11/2025 9:58 AM EDT Mild diffuse soft tissue swelling without acute osseous abnormality. Narrative 03/11/2025 9:58 AM EDT XR TIBIA FIBULA 2 VIEWS (LEFT) Referring clinician's provided indication for this examination in [facility]: Pain COMPARISON: XR KNEE 4 OR MORE VIEWS (LEFT) 2022- FINDINGS: Mild diffuse soft tissue swelling. The osseous structures are intact without evidence of periosteal reaction or osteolysis. No fracture. Normal alignment. No lytic or blastic lesion. No acute abnormality within the included knee, ankle, and foot. Procedure Note Eliceo Neal MD - 03/11/2025 XR TIBIA FIBULA 2 VIEWS (LEFT) Referring clinician's provided indication for this examination in [facility]:Pain COMPARISON: XR KNEE 4 OR MORE VIEWS (LEFT) 2022- FINDINGS: Mild diffuse soft tissue swelling. The osseous structures are intactwithout evidence of periosteal reaction or osteolysis. No fracture. Normalalignment. No lytic or blastic lesion. No acute abnormality within theincluded knee, ankle, and foot. IMPRESSION: Mild diffuse soft tissue swelling without acute osseous abnormality. Zuleyka JOYCE IMG XR LOWER EXTREMITY Lucia l Result documented in this encounter Visit Diagnoses Diagnosis Left leg pain- Primary Pain in soft tissues of limb Left leg pain Pain in soft tissues of limb documented in this encounter Care Teams Installation And Repair Technician Relationship Specialty Start Date End Date Rito Yousif DO [address] [place] [address] PCP - General Internal Medicine 03/10/25 Rito Yousif DO Historical LMR Provider 05/23/17 Miguel Baker MD [email or web address] Historical LMR Provider 05/23/17 Amina Metz MD [address] [place] [address] Historical LMR Provider 05/23/17 Milla Villagran MD [address] [place] [address] Orthopedics & Sports Medicine, [facility] [place] [address] Historical LMR Provider 05/23/17 documented as of this encounter Additional Source Comments The information contained in this document represents components of the legal health record. It is not the complete legal health record.[facility]
--- OUTSIDE RECORDS SUMMARY | 2025-04-03 08:53 | XMS_ITS | Encounter Summary ---
Author Organization [facility] Address [address] [place] [address] [place] [address] Phone Care Team Providers Care Marketing Sales Supervisor Name Role Phone Rito Yousif DO Unavailable Ed Taylor MD Unavailable [phone] Miguel Baker MD Unavailable [email or web address] Amina Metz MD Unavailable [phone] Milla Villagran MD Unavailable [phone] Rito Yousif DO Primary Care Provider [phone] Rito Yousif DO Primary Care Provider [phone] Encounter Details Date Type Department Care Team (Late st Contact Info) Description 07/03/2019 Transcribe Orders [facility] [address] [place] [address] Rito Yousif DO [address] [facility] [place] [address] [email or web address] Myxedema heart disease (Primary Dx); Essential hypertension, malignant Social History Tobacco Use Types Packs/Day Years [...] documented as of this encounter Results * Comprehensive metabolic panel (07/03/2019 10:56 AM EST) SODIUM 141 133 - 146 mmol/L [facility] POTASSIUM 4.0 3.3 - 5.1 mmol/L [facility] CHLORIDE 98 96 - 108 mmol/L [facility] CO2 27 21 - 35 mmol/L [facility] BUN 11 6 - 19 mg/dL [facility] CREATININE 0.60 0.5 - 1.5 mg/dL [facility] GLUCOSE 91 70 - 99 mg/dL [facility] ALBUMIN 4.2 3.9 - 4.8 g/dL [facility] TOTAL PROTEIN 6.7 6.5 - 8.0 g/dL [facility] CALCIUM 9.8 8.4 - 10.3 mg/dL [facility] ALKALINE PHOSPHATASE 74 39 - 117 U/L [facility] TOTAL BILIRUBIN 0.3 0.0 - 1.2 mg/dL [facility] AST 27 0 - 37 U/L [facility] ALT 24 0 - 40 U/L [facility] GLOBULIN 2.5 1 - 4.8 g/dL [facility] EGFR 97 >59 mL/min/1.7 3m2 [facility] Comment:If patient is black, multiply result by 1.159. Estimated glomerular filtration rate calculated using the CKD-EPI equation. ANION GAP 20 10 - 20 mmol/L [facility] Blood 07/03/2019 10:5 6 AM EST 07/03/2019 10:58 AM EST us Rito A Magueda DO LAB BLOOD ORDERABLES Final Resul t [facility] [address] [place] [address] * TSH with reflex (07/03/2019 10:56 AM EST) TSH 0.70 0.27 - 4.20 uIU/mL [facility] Blood 07/03/2019 10:5 6 AM EST 07/03/2019 10:58 AM EST us Rito Yousif DO LAB BLOOD ORDERABLES Final Resul t [facility] [address] [place] [address] documented in this encounter Visit Diagnoses Diagnosis Myxedema heart disease- Primary Unspecified hypothyroidism Essential hypertension, malignant documented in this encounter Care Teams Marketing Sales Supervisor Relationship Specialty Start Date End Date Rito Yousif DO PCP - General Internal Medicine 06/16/17 03/09/25 Rito Yousif DO [address] [place] [address] PCP - General Internal Medicine 03/10/25 Rito Yousif DO Historical LMR Provider 05/23/17 Ed Taylor MD [address] [place] [address] Historical LMR Provider 05/23/17 08/14/21 Miguel Baker MD [email or web address] Historical LMR Provider 05/23/17 Amina Metz MD [address] [place] [address] [email or web address] Historical LMR Provider 05/23/17 Milla Villagran MD [address] [place] [address] Orthopedics & Sports Medicine, [facility] [address] [email or web address] Historical LMR Provider 05/23/17 documented as of this encounter Additional Source Comments The information contained in this document represents components of the legal health record. It is not the complete legal health record.[facility]
[2025-04-03 09:01] LABS: Hematocrit 41.2 % (37.0-47.0); Hemoglobin 13.6 g/dl (12.0-16.0); Imm Gran Abs Auto 0.02 X10*3/uL (0.00-0.03); Imm Gran Pct Auto 0.4 % (0.0-0.4); Lymphocytes Absolute Auto 1.1 X10*3/uL (1.2-4.9); Mean Corpuscular HGB Conc 33.0 g/dl (31.0-35.0); Mean Corpuscular Hemoglobin 31.4 pg (27.0-33.0); Mean Corpuscular Volume 95.2 fL (80.0-98.0); NRBC Abs Auto 0.000 X10*3/uL (0.0-0.012); NRBC Pct Auto 0.0 /100WBC (0.0-0.2); Platelet Count 236 X10*3/uL (160-400); Red Blood Count 4.33 X10*6/uL (4.20-5.50); White Blood Count 4.5 X10*3/uL (4.8-10.8)
[2025-04-03 09:32] LABS: Alanine Aminotransferase 18 U/L (0-31); Albumin Level 4.2 g/dL (3.5-5.0); Alkaline Phosphatase 71 U/L (39-117); Anion Gap 11 (12-20); Aspartate Amino Transferase 22 U/L (5-31); Blood Urea Nitrogen 13 mg/dL (9-16); Calcium 9.2 mg/dL (8.4-10.2); Carbon Dioxide 30 mmol/L (22-29); Chloride 106 mmol/L (96-108); Cholesterol 218 mg/dL (<200); Estimated Glomerular Filt Rate > 60; HDL Cholesterol 58 mg/dL (>40); Iron 117 mcg/dL (30-160); Percent Iron Saturation 43 % (15-50); Potassium 4.1 mmol/L (3.3-5.1); Sodium 143 mmol/L (135-145); Total Iron Binding Capacity 269 mcg/dL (228-428); Total Protein 6.7 g/dL (6.5-8.0); Triglycerides 111 mg/dL (<150); Unsaturated Iron Binding 152 ug/dL
[2025-04-03 09:51] LABS: Ferritin 94 ng/mL (10-250)
[2025-04-03 10:00] LABS: Vitamin B12 881 pg/mL (200-900)
[2025-04-03 11:32] LABS: Free T4 (Free Thyroxine) 1.38 ng/dL (0.71-1.85)
[2025-04-07 13:18] LABS: VITAMIN D (1,25 OH) D3 32 pg/mL; Vit D (1,25-Dihydroxy) Total 32 pg/mL (18-72); Vitamin D (1,25 OH) D2 <8 pg/mL
== END 2025-04-03 08:19 | disposition home or self-care (01) ==
LOC: HO.LAB 08:18
PROVIDERS: PCP Internal Medicine; Visit Provider Internal Medicine
DX: Z00.00 Encounter for general adult medical examination without abnormal findings (principal); Z13.6 Encounter for screening for cardiovascular disorders; R53.83 Other fatigue
CPT/HCPCS: 36415; 80053; 80061; 82607; 82652; 82728; 83540; 84439; 84443; 85025

== ENCOUNTER 2025-04-24 08:33 | Outpatient (REF) | payer MEDICARE, OTHER, SELFPAY ==
--- NOTE | ~2025-04-24 | MM_ITS ---
EXAMINATION: MM SCREENING DIGITAL BREAST TOMOSYNTHESIS, BILATERAL CLINICAL INFORMATION: Screening. Asymptomatic. COMPARISON: Mammography: Comparison is made with available priors TECHNIQUE: Digital breast mammography with tomosynthesis is performed in both the craniocaudal and mediolateral oblique views along with computer-aided detection (CAD). FINDINGS: The breasts are heterogeneously dense, which may obscure small masses (ACR BI-RADS breast composition Category c). There are no significant masses, abnormal calcifications, or other abnormalities. MM/MM tomosynthesis screening BI IMPRESSION: No mammographic evidence of malignancy. ASSESSMENT: BI-RADS BI-RADS 1 - Negative RECOMMENDATION: Routine annual mammography screening. 1 year F/U This examination should not preclude the clinical evaluation of a suspicious palpable abnormality. This patient's information was entered into a reminder system with a target due date for their next mammogram. Electronically signed by: Bina Donohue DO 04/28/2025 12:32 PM EDT
--- OUTSIDE RECORDS SUMMARY | 2025-04-24 09:44 | XMS_ITS | Encounter Summary ---
Author Organization [facility] Address [address] [place] [address] Drive [address] [place] [address] Phone Care Team Providers Care Naval Science Teacher Name Role Phone Rito Yousif DO Unavailable Miguel Baker MD Unavailable [email or web address] Amina Metz MD Unavailable [phone] Milla Villagran MD Unavailable [phone] Rito Yousif DO Primary Care Provider [phone] Encounter Details Date Type Department Care Team (Late st Contact Info) Description 03/10/2025 Ancillary Orders [facility], X-Ray - [address] [address] Zuleyka Mcfarland PA [address] [facility] [place] [address] Left leg pain (Primary Dx) Social History [...] clinician's provided indication [facility] this [facility]: Pain COMPARISON: XR KNEE 4 OR MORE [...] clinician's provided indication for this examination in [facility]:Pain COMPARISON: XR KNEE 4 OR MORE VIEWS (LEFT) 2022- FINDINGS: Mild diffuse soft tissue swelling. The osseous structures are intactwithout evidence of periosteal reaction or osteolysis. No fracture. Normalalignment. No lytic or blastic lesion. No acute abnormality within theincluded knee, ankle, and foot. IMPRESSION: Mild diffuse soft tissue swelling without acute osseous abnormality. uZleyka JOYCE IMG XR LOWER EXTREMITY Lucia l Result documented in this encounter Visit Diagnoses Diagnosis Left leg pain- Primary Pain in soft tissues of limb Left leg pain Pain in soft tissues of limb documented in this encounter Care Teams Naval Science Teacher Relationship Specialty Start Date End Date Rito Yousif DO [address] [place] [address] PCP - General Internal Medicine 03/10/25 Rito Yousif DO Historical LMR Provider 05/23/17 Miguel Baker MD [email or web address] Historical LMR Provider 05/23/17 Amina Metz MD [address] [place] [address] Historical LMR Provider 05/23/17 Milla Villagran MD [address] [place] [address] Orthopedics & Sports Medicine, [facility] [place] [address] Historical LMR Provider 05/23/17 documented as of this encounter Additional Source Comments The information contained in this document represents components of the legal health record. It is not the complete legal health record.[facility]
--- OUTSIDE RECORDS SUMMARY | 2025-04-24 09:44 | XMS_ITS | Encounter Summary ---
Author Organization [facility] Address [address] [place] [address] Drive [address] [place] [address] Phone Care Team Providers Care Meat Packer Name Role Phone Rito Yousif DO Unavailable Miguel Baker MD Unavailable [email or web address] Amina Metz MD Unavailable [phone] Milla Villagran MD Unavailable [phone] Rito Yousif DO Primary Care Provider [phone] Encounter Details Date Type Department Care Team (Late st Contact Info) Description 04/11/2025 Transcribe Orders Virtual Department [address] [place] [address] Brooklyn Long, HEDIS REVIEW NURSE [address] [facility] [address] [place] [address] [email or web address] Social History Tobacco Use Types Packs/Day Years [...] on filedocumented in this encounter Care Teams Meat Packer Relationship Specialty Start Date End Date Rito Yousif DO [address] [place] [address] [email or web address] PCP - General Internal Medicine 03/10/25 Rito Yousif DO Historical LMR Provider 05/23/17 Miguel Baker MD [email or web address] Historical LMR Provider 05/23/17 Amina Metz MD [address] [place] [address] Historical LMR Provider 05/23/17 Milla Villagran MD [address] [place] [address] Orthopedics & Sports Medicine, [place] [address] [email or web address] Historical LMR Provider 05/23/17 documented as of this encounter Additional Source Comments The information contained in this document represents components of the legal health record. It is not the complete legal health record.[facility]
--- OUTSIDE RECORDS SUMMARY | 2025-04-24 09:44 | XMS_ITS | Encounter Summary ---
Author Organization [facility] Address [address] [place] [address] [place] [address] Phone Care Team Providers Care Building Rigger Name Role Phone Rito Yousif DO Unavailable Ed Taylor MD Unavailable [phone] Miguel Baker MD Unavailable [facility] [email or web address] Amina Metz MD Unavailable [phone] Milla Villagran MD Unavailable [phone] Rito Yousif DO Primary Care Provider [phone] Rito Yousif DO Primary Care Provider [phone] Encounter Details Date Type Department Care Team (Late st Contact Info) Description 07/03/2019 Transcribe Orders [facility] Laboratory [address] [place] [address] Rito Yousif DO [address] [place] [address] [email or web address] Myxedema heart disease (Primary Dx); Essential hypertension, [...] EST) SODIUM 141 133 - 146 mmol/L [facility] POTASSIUM 4.0 3.3 - 5.1 mmol/L [facility] CHLORIDE 98 96 - 108 mmol/L [facility] CO2 27 21 - 35 mmol/L [facility] BUN 11 6 - 19 mg/dL [facility] CREATININE 0.60 0.5 - 1.5 mg/dL [facility] GLUCOSE 91 70 - 99 mg/dL [facility] ALBUMIN 4.2 3.9 - 4.8 g/dL [facility] TOTAL PROTEIN 6.7 6.5 - 8.0 g/dL [facility] CALCIUM 9.8 8.4 - 10.3 mg/dL [facility] ALKALINE PHOSPHATASE 74 39 - 117 U/L [facility] TOTAL BILIRUBIN 0.3 0.0 - 1.2 mg/dL [facility] AST 27 0 - 37 U/L [facility] ALT 24 0 - 40 U/L [facility] GLOBULIN 2.5 1 - 4.8 g/dL [facility] EGFR 97 >59 mL/min/1.7 3m2 [facility] Comment:If patient is black, multiply result by 1.159. Estimated glomerular filtration rate calculated using the CKD-EPI equation. ANION GAP 20 10 - 20 mmol/L [facility] Blood 07/03/2019 10:5 6 AM EST 07/03/2019 10:58 AM EST us Rito A Magueda DO LAB BLOOD ORDERABLES Final Resul t [facility] [address] [place] [address] * TSH with reflex (07/03/2019 10:56 AM EST) TSH 0.70 0.27 - 4.20 uIU/mL [facility] Blood 07/03/2019 10:5 6 AM EST 07/03/2019 10:58 AM EST us Rito Yousif DO LAB BLOOD ORDERABLES Final Resul t [facility] [address] [place] [address] documented in this encounter Visit Diagnoses Diagnosis Myxedema heart disease- Primary Unspecified hypothyroidism Essential hypertension, malignant documented in this encounter Care Teams Building Rigger Relationship Specialty Start Date End Date Rito Yousif DO PCP - General Internal Medicine 06/16/17 03/09/25 Rito Yousif DO [address] [place] [address] PCP - General Internal Medicine 03/10/25 Rito Yousif DO Historical LMR Provider 05/23/17 Ed Taylor MD [address] [place] [address] Historical LMR Provider 05/23/17 08/14/21 Miguel Baker MD [email or web address] Historical LMR Provider 05/23/17 Amina Metz MD [address] [place] [address] [email or web address] Historical LMR Provider 05/23/17 Milla Villagran MD [address] [place] [address] Orthopedics & Sports Medicine, [facility] [place] [address] [email or web address] Historical LMR Provider 05/23/17 documented as of this encounter Additional Source Comments The information contained in this document represents components of the legal health record. It is not the complete legal health record.[facility]
--- OUTSIDE RECORDS SUMMARY | 2025-04-24 09:44 | XMS_ITS | Encounter Summary ---
Author Organization [facility] Address [address] [place] [address] [place] [address] Phone Care Team Providers Care Assistant Infant Toddler Teacher Name Role Phone Rito Yousif DO Unavailable Miguel Baker MD Unavailable [email or web address] [email or web address] Amina Metz MD Unavailable [phone] Milla Villagran MD Unavailable [phone] Rito Yousif DO Primary Care Provider [phone] Reason for Referral * Outpatient Procedure - Closed Specialty Diagnoses / Procedures Referred By Debo connors Referred To Contact Radiology Diagnoses Left leg pain Pain of left calf Procedures US Lower Extremity Veins Duplex (Left) Brooklyn Long NP [address] [facility] [address] [place] [address] Phone: tel: fax: [email or web address] Referral ID Status Reason Start Date Expiration Date Visits Re quested Visits Authorized [id number] Closed 04/11/2025 04/11/2026 1 1 Encounter Details Date Type Department Care Team (Late st Contact Info) Description 04/11/2025 Transcribe Orders [facility] Department [address] [place] [address] Brooklyn Long NP [address] [facility] [address] [place] [address] [email or web address] Left leg pain (Primary Dx); Pain of left calf Social History Tobacco Use Types Packs/Day Years [...] documented as of this encounter Results * US Lower Extremity Veins Duplex (Left) (04/11/2025 5:10 PM EDT) Anatomical Region Laterality Modality Hip Left, Thigh Left, Knee L eft, Leg Left, Ankle Left, Foot Left Ultrasound 04/14/2025 8:30 AM EDT Impressions 04/14/2025 8:33 AM EDT * No evidence of deep or superficial venous thrombosis in the visualized veins of the left lower extremity. Narrative 04/14/2025 8:33 AM EDT US LOWER EXTREMITY VEINS DUPLEX (LEFT) Referring clinician's provided indication for this examination in [facility]: Outside Radiology Order; left leg pain TECHNIQUE: Lower extremity venous ultrasound with color and spectral Doppler. COMPARISON: US LOWER EXTREMITY VEINS DUPLEX (LEFT) 2022- FINDINGS: Exam Quality: Technically adequate exam demonstrates: Left lower extremity: Common femoral vein: Normal compressibility and flow characteristics. Femoral vein: Normal compressibility and flow characteristics. Proximal profunda femoral vein: Normal compressibility. Popliteal vein: Normal compressibility and flow characteristics. Posterior tibial veins: Normal compressibility. Peroneal veins: Normal compressibility. Gastrocnemius: Normal compressibility. Great saphenous vein: Normal compressibility at the saphenofemoral junction. Contralateral common femoral vein: Normal compressibility. Procedure Note Salma Macario MD - 04/14/2025 US LOWER EXTREMITY VEINS DUPLEX (LEFT) Referring clinician's provided indication for this examination in [facility]:Outside Radiology Order; left leg pain TECHNIQUE: Lower extremity venous ultrasound with color and spectralDoppler. COMPARISON: US LOWER EXTREMITY VEINS DUPLEX (LEFT) 2022- FINDINGS: Exam Quality: Technically adequate exam demonstrates: Left lower extremity: Common femoral vein: Normal compressibility and flow characteristics. Femoral vein: Normal compressibility and flow characteristics. Proximal profunda femoral vein: Normal compressibility. Popliteal vein: Normal compressibility and flow characteristics. Posterior tibial veins: Normal compressibility. Peroneal veins: Normal compressibility. Gastrocnemius: Normal compressibility. Great saphenous vein: Normal compressibility at the saphenofemoraljunction. Contralateral common femoral vein: Normal compressibility. IMPRESSION: * No evidence of deep or superficial venous thrombosis in the visualizedveins of the left lower extremity. Brooklyn Long NP CV US VASCULAR Final R esult documented in this encounter Visit Diagnoses Diagnosis Left leg pain- Primary Pain in soft tissues of limb Pain of left calf Left leg pain Pain in soft tissues of limb Pain of left calf documented in this encounter Care Teams Assistant Infant Toddler Teacher Relationship Specialty Start Date End Date Rito Yousif DO [address] [place] [address] PCP - General Internal Medicine 03/10/25 Rito Yousif DO Historical LMR Provider 05/23/17 Miguel Baker MD [email or web address] Historical LMR Provider 05/23/17 Amina Metz MD [address] [place] [address] [email or web address] Historical LMR Provider 05/23/17 Milla Villagran MD [address] [place] [address] Orthopedics & Sports Medicine, [facility] [place] [address] Historical LMR Provider 05/23/17 documented as of this encounter Additional Source Comments The information contained in this document represents components of the legal health record. It is not the complete legal health record.[facility]
--- OUTSIDE RECORDS SUMMARY | 2025-04-24 09:44 | XMS_ITS | Patient Health Record ---
Author Organization [facility] nataly GardnerVenancio Address [address] [facility] [place] [address] Care Team Providers Care Environmental Conflict Manager Name Role Phone Rito Yousif MD Primary Care Provider Carmenza Llanes Unavailable [phone] Allergies Allergen (clinical drug ingredient) Drug/Non Drug Allergy documented on EMR Reaction Allergy Type Onset Date Status Substance with 4-uwhukgf-7-methylgluta ryl-coenzyme A reductase inhibitor mechanism of action [...] Status Risk Notes Problem Acquired hallux valgus (23302460) Hallux valgus (acquired), left foot (M20.12) Active confirmed Problem Acquired hallux valgus (07242163) Hallux valgus (acquired), right foot (M20.11) Active confirmed Problem Acquired hammer toe of right foot (649400475699077 5) Other hammer toe(s) (acquired), right foot (M20.41) Active confirmed Problem Acquired hammer toe of left foot (916842826451844 3) Other hammer toe(s) (acquired), left foot (M20.42) Active confirmed Problem Acquired hallux rigidus (5613155) Hallux rigidus, right foot (M20.21) Active confirmed Problem Essential hypertension (88152291) Essential hypertension (I10) Active confirmed Vital Signs Blood pressure diastolic 80 mm Hg 11/06/2024 Height 5ft1in in 11/06/2024 Blood pressure systolic 130 mm Hg 11/06/2024 Weight 150 lbs 11/06/2024 BMI 28.34 kg/m2 11/06/2024 Encounters Encounter Location Date Provider Diagnosis [facility] ([facility] [address] [place] [address] 08/14/2024 Carmenza Bronson [facility] [address] [place] [address] 07/24/2024 Carmenza Bronson Hallux rigidus, righ t foot M20.21 ; Pain in right ankle and joints of right foot M25.571 ; Bursitis of right foot M77.51 ; Hallux valgus (acquired), right foot M20.11 and Other hammer toe(s) (acquired), right foot M20.41 [facility] [address] [address] 08/19/2024 Carmenza Perica Hallux rigidus, righ t foot M20.21 ; Other hammer toe(s) (acquired), right foot M20.41 and Local edema R60.[address] [address] 08/28/2024 Carmenza Perica Hallux rigidus, righ t foot M20.21 ; Other hammer toe(s) (acquired), right foot M20.41 ; Local edema R60.0 and Dehiscence of operative wound, initial encounter T81.31XA [address] [address] 09/04/2024 Carmenza Perica Hallux rigidus, righ t foot M20.21 ; Other hammer toe(s) (acquired), right foot M20.41 ; Local edema R60.0 and Allergic dermatitis L23.[address] [address] 09/10/2024 Carmenza Perica Hallux rigidus, righ t foot M20.21 ; Other hammer toe(s) (acquired), right foot M20.41 ; Local edema R60.0 ; Allergic dermatitis L23.9 and Dehiscence of operative wound, initial encounter T81.31XA [address] [address] 09/17/2024 Carmenza Perica Hallux rigidus, righ t foot M20.21 ; Other hammer toe(s) (acquired), right foot M20.41 ; Local edema R60.0 ; Allergic dermatitis L23.9 and Dehiscence of operative wound, subsequent encounter T81.31XD [address] [address] 10/01/2024 Carmenza Perica Hallux rigidus, righ t foot M20.21 ; Other hammer toe(s) (acquired), right foot M20.41 ; Dehiscence of operative wound, subsequent encounter T81.31XD and Postoperative visit Z48.[address] [address] 11/06/2024 Carmenza Bronson Hallux rigidus, righ t foot M20.21 ; Postoperative visit Z48.89 ; Other hammer toe(s) (acquired), right foot M20.41 and Ingrown nail L60.0 [facility] [place] [address] [place] [address] 08/15/2024 Carmenza Bronson [facility] [address] [address] 08/15/2024 [facility] [address] [place] [address] 08/28/2024 Carmenza Bronson Assessments Encounter Date Diagnosis [...] Date Coverage End Date Medicare National Govt [facility] [address] [place] [address] [id number] Edita Suárez Self - patient is the insured [employer] [address] [place] [id number] Silvio Suárez Spouse - patient is the [...]
--- OUTSIDE RECORDS SUMMARY | 2025-04-24 09:44 | XMS_ITS | Encounter Summary ---
Author Organization [facility] Address [address] [place] [address] [place] [address] Phone Care Team Providers Care Freight Forwarder Name Role Phone Rito Yousif DO Unavailable Ed Taylor MD Unavailable [phone] Miguel Baker MD Unavailable [email or web address] [email or web address] Amina Metz MD Unavailable [phone] Milla Villagran MD Unavailable [phone] Rito Yousif DO Primary Care Provider [phone] Rito Yousif DO Primary Care Provider [phone] Encounter Details Date Type Department Care Team (Late st Contact Info) Description 06/16/2017 Transcribe Orders [facility] Laboratory [address] [place] [address] Rito Yousif DO [address] [place] [address] [email or web address] Myxedema heart disease (Primary Dx); Hyperlipidemia, unspecified [...] FREE T4 1.4 0.9 - 1.7 ng/dL [facility] 06/16/2017 7:13 AM EST 06/16/2017 7:18 AM EST us Unknown Unknown MD LAB BLOOD ORDERABLES Final Re sult Performing Organization Address City/[facility]/ZIP Co de Phone Number [address] [address] * (ABNORMAL) TSH with reflex (06/16/2017 7:13 AM EST) TSH 4.73(H) 0.27 - 4.20 uIU/mL [facility] Blood 06/16/2017 7:13 AM EST 06/16/2017 7:18 AM EST us Rito A Bigda DO LAB BLOOD ORDERABLES Edited Resu lt - Final Performing Organization Address [facility] Co de Phone Number [address] [address] * CBC and differential (06/16/2017 7:13 AM EST) WBC 3.50 3.40 - 11.20 K/uL [facility] RBC 4.39 3.80 - 4.80 M/uL [facility] HGB 13.4 12.0 - 15.0 g/dL [facility] HCT 40.5 36.0 - 46.0 % [facility] PLT 235 130 - 400 K/uL [facility] MCV 92.3 79.0 - 98.0 fL [facility] MCH 30.5 27.0 - 34.8 pg [facility] MCHC 33.1 31.5 - 36.0 g/dL [facility] RDW 12.6 10.8 - 14.6 % [facility] MPV 11.5 9.4 - 12.4 fl [facility] NRBC 0.00 /100 WBCs [facility] ABSOLUTE NRBC 0.00 K/uL [facility] DIFF METHOD Auto [facility] NEUTS 50.5 45.30 - 77.70 % [facility] LYMPHS 32.3 12.30 - 39.70 % [facility] MONOS 10.6 4.10 - 12.80 % [facility] EOS 4.9 0 - 7.2 % [facility] BASOS 1.4 0 - 2.80 % [facility] Granulocytes, immature (%) 0.3 0.0 - 0.9 % [facility] ABSOLUTE NEUTS 1.77 1.40 - 7.70 K/uL [facility] ABSOLUTE LYMPHS 1.13 0.60 - 3.20 K/uL [facility] ABSOLUTE MONOS 0.37 0.11 - 0.59 K/uL [facility] ABSOLUTE EOS 0.17 0.01 - 0.50 K/uL [facility] ABSOLUTE BASOS 0.05 0.00 - 0.08 K/uL [facility] Granulocytes, immature 0.01 0.00 - 0.05 K/uL [facility] Blood 06/16/2017 7:13 AM EST 06/16/2017 7:18 AM EST us Rito A Bigda DO LAB BLOOD ORDERABLES Final Resul t [address] [address] * (ABNORMAL) Lipid panel (06/16/2017 7:13 AM EST) HDL 58 mg/dL [facility] Comment: Interpretation: Risk Level Females Decreased >55mg/dL Average 50-55 mg/dL Increased <50 mg/dL CHOLESTEROL 221 0 - 240 mg/dL [facility] TRIGLYCERIDES 125 30 - 160 mg/dL [facility] LDL 138(H) 50 - 129 mg/dL [facility] Comment: LDL levels in terms of risk for coronary heart disease: <100 mg/dL: Optimal 100-129 mg/dL: Near or above optimal 130-159 mg/dL: Borderline high 160-189 mg/dL: High >190 mg/dL: Very High CARDIAC RISK RATIO 3.8 3.3 - 4.4 C [facility] Blood 06/16/2017 7:13 AM EST 06/16/2017 7:18 AM EST us Rito A Bigda DO LAB BLOOD ORDERABLES Final Resul t [address] [address] * (ABNORMAL) Comprehensive metabolic panel (06/16/2017 7:13 AM EST) Pathologist [facility] SODIUM 143 133 - 146 mmol/L [facility] POTASSIUM 3.9 3.3 - 5.1 mmol/L [facility] CHLORIDE 103 96 - 108 mmol/L [facility] CO2 28 21 - 35 mmol/L [facility] BUN 14 6 - 19 mg/dL [facility] CREATININE 0.60 0.5 - 1.5 mg/dL [facility] GLUCOSE 80 70 - 99 mg/dL [facility] ALBUMIN 3.9 3.9 - 4.8 g/dL [facility] TOTAL PROTEIN 6.3(L) 6.5 - 8.0 g/dL [facility] CALCIUM 9.1 8.4 - 10.3 mg/dL [facility] ALKALINE PHOSPHATASE 60 39 - 117 U/L [facility] TOTAL BILIRUBIN 0.5 0 - 1.2 mg/dL [facility] AST 19 0 - 37 U/L [facility] ALT 17 0 - 40 U/L [facility] GLOBULIN 2.4 1 - 4.8 g/dL [facility] EGFR >60 >60 mL/min/1.7 3m2 [facility] Comment:Abnormal if <60. If patient is -Nigerien, multiply the result by 1.21. ANION GAP 16 10 - 20 mmol/L [facility] Blood 06/16/2017 7:13 AM EST 06/16/2017 7:18 AM EST us Rito Yousif DO LAB BLOOD ORDERABLES Final Resul t [facility] [address] [place] [address] documented in this encounter Visit Diagnoses Diagnosis Myxedema heart disease- Primary Unspecified hypothyroidism Hyperlipidemia, unspecified hyperlipidemia type documented in this encounter Care Teams Freight Forwarder Relationship Specialty Start Date End Date Rito Yousif DO PCP - General Internal Medicine 06/16/17 03/09/25 Rito Yousif DO [address] [place] [address] PCP - General Internal Medicine 03/10/25 Rito Yousif DO Historical LMR Provider 05/23/17 Ed Taylor MD [address] [place] [address] Historical LMR Provider 05/23/17 08/14/21 Miguel Baker MD [email or web address] Historical LMR Provider 05/23/17 Amina Metz MD [address] [place] [address] [email or web address] Historical LMR Provider 05/23/17 Milla Villagran MD [address] [place] [address] Orthopedics & Sports Medicine, [facility] [place] [address] [email or web address] Historical LMR Provider 05/23/17 documented as of this encounter Additional Source Comments The information contained in this document represents components of the legal health record. It is not the complete legal health record.[facility]
--- OUTSIDE RECORDS SUMMARY | 2025-04-24 09:44 | XMS_ITS | Encounter Summary ---
Author Organization [facility] Address [address] [place] [address] [place] [address] Phone Care Team Providers Care Video Game Script Writer Name Role Phone Rito Yousif DO Unavailable Ed Taylor MD Unavailable [phone] Miguel Baker MD Unavailable [email or web address] [email or web address] Amina Metz MD Unavailable [phone] Milla Villagran MD Unavailable [phone] Rito Yosuif DO Primary Care Provider [phone] Rito Yousif DO Primary Care Provider [phone] Encounter Details Date Type Department Care Team (Late st Contact Info) Description 11/25/2019 Ancillary Orders Virtual Department [address] [place] [address] Rito Yousif DO [address] [facility] [place] [address] [email or web address] Breast screening Social History [...] DENSITY: There are scattered fibroglandular densities. POS -[id number] Narrative 03/03/2020 8:45 AM EDT Bilateral full-field [...] DENSITY: There are scattered fibroglandular densities. POS -[id number] us Rito A Bigda DO IMG MG EXAMS Final Result documented in this encounter Visit Diagnoses Diagnosis Breast screening Breast screening, unspecified Breast screening Breast screening, unspecified documented in this encounter Care Teams Video Game Script Writer Relationship Specialty Start Date End Date Rito Yousif DO PCP - General Internal Medicine 06/16/17 03/09/25 Rito Yousif DO [address] [place] [address] PCP - General Internal Medicine 03/10/25 Rito Yousif DO Historical LMR Provider 05/23/17 Ed Taylor MD [address] [place] [address] Historical LMR Provider 05/23/17 08/14/21 Miguel Baker MD [email or web address] Historical LMR Provider 05/23/17 Amina Metz MD [address] [place] [address] Historical LMR Provider 05/23/17 Milla Villagran MD [address] [place] [address] Orthopedics & Sports Medicine, [place] [address] Historical LMR Provider 05/23/17 documented as of this encounter Additional Source Comments The information contained in this document represents components of the legal health record. It is not the complete legal health record.[facility]
--- OUTSIDE RECORDS SUMMARY | 2025-04-24 09:45 | XMS_ITS | Encounter Summary ---
Author Organization [facility] Address [address] [place] [address] [address] [place] [address] Phone Care Team Providers Care Precision Aircraft Systems Assembler Name Role Phone Rito Yousif DO Unavailable Miguel Baker MD Unavailable [email or web address] Amina Metz MD Unavailable [phone] Milla Villagran MD Unavailable [phone] Rito Yousif DO Primary Care Provider [phone] Rito Yousif DO Primary Care Provider [phone] Encounter Details Date Type Department Care Team (Late st Contact Info) Description 03/08/2023 Procedure Pass [address] [address] Social History Tobacco Use Types Packs/Day Years [...] on filedocumented in this encounter Care Teams Precision Aircraft Systems Assembler Relationship Specialty Start Date End Date Rito Yousif DO PCP - General Internal Medicine 06/16/17 03/09/25 Rito Yousif DO [address] [place] [address] PCP - General Internal Medicine 03/10/25 Rito Yousif DO Historical LMR Provider 05/23/17 Miguel Baker MD [email or web address] Historical LMR Provider 05/23/17 Amina Metz MD [address] [place] [address] Historical LMR Provider 05/23/17 Milla Villagran MD [address] [place] [address] Orthopedics & Sports Medicine, [place] [address] [email or web address] Historical LMR Provider 05/23/17 documented as of this encounter Additional Source Comments The information contained in this document represents components of the legal health record. It is not the complete legal health record.[facility]
--- OUTSIDE RECORDS SUMMARY | 2025-04-24 09:45 | XMS_ITS | Encounter Summary ---
Author Organization [facility] Address [address] [place] [address] [place] [address] Phone Care Team Providers Care Data Management Name Role Phone Rito Yousif DO Unavailable Miguel Baker MD Unavailable [email or web address] Amina Metz MD Unavailable [phone] Milla Villagran MD Unavailable [phone] Rito Yousif DO Primary Care Provider [phone] Rito Yousif DO Primary Care Provider [phone] Encounter Details Date Type Department Care Team (Late st Contact Info) Description 09/27/2022 Ancillary Orders [facility], X-Ray - [address] [address] Tj Parisi, DO [address] [place] [address] [email or web address] Left knee pain, unspecified chronicity Social History [...] chronicity documented in this encounter Care Teams Data Management Relationship Specialty Start Date End Date Rito Yousif DO PCP - General Internal Medicine 06/16/17 03/09/25 Rito Yousif DO [address] [place] [address] PCP - General Internal Medicine 03/10/25 Rito Yousif DO Historical LMR Provider 05/23/17 Miguel Baker MD [email or web address] Historical LMR Provider 05/23/17 Amina Metz MD [address] [place] [address] Historical LMR Provider 05/23/17 Milla Villagran MD [address] [place] [address] Orthopedics & Sports Medicine, [facility] [place] [address] Historical LMR Provider 05/23/17 documented as of this encounter Additional Source Comments The information contained in this document represents components of the legal health record. It is not the complete legal health record.[facility]
--- OUTSIDE RECORDS SUMMARY | 2025-04-24 09:45 | XMS_ITS | Encounter Summary ---
Author Organization [facility] Address [address] [place] [address] [place] [address] Phone Care Team Providers Care Larriman Helper Name Role Phone Rito Yousif DO Unavailable Ed Taylor MD Unavailable [phone] Miguel Baker MD Unavailable [email or web address] Amina Metz MD Unavailable [phone] Milla Villagran MD Unavailable [phone] Rito Yousif DO Primary Care Provider [phone] Rito Yousif DO Primary Care Provider [phone] Encounter Details Date Type Department Care Team (Late st Contact Info) Description 11/27/2018 Ancillary Orders Virtual Department [address] [place] [address] Rito Yousif DO [address] [facility] [place] [place] [address] [email or web address] Breast screening [...] unspecified documented in this encounter Care Teams Larriman Helper Relationship Specialty Start Date End Date MagueRito lloydDO PCP - General Internal Medicine 06/16/17 03/09/25 Rito Yousif DO [address] [place] [address] PCP - General Internal Medicine 03/10/25 Rito Yousif DO Historical LMR Provider 05/23/17 Ed Taylor MD [address] [place] [address] Historical LMR Provider 05/23/17 08/14/21 Miguel Baker MD [email or web address] Historical LMR Provider 05/23/17 Amina Metz MD [address] [place] [address] Historical LMR Provider 05/23/17 Milla Villagran MD [address] [place] [address] Orthopedics & Sports Medicine, [facility] [place] [address] Historical LMR Provider 05/23/17 documented as of this encounter Additional Source Comments The information contained in this document represents components of the legal health record. It is not the complete legal health record.[facility]
--- OUTSIDE RECORDS SUMMARY | 2025-04-24 09:45 | XMS_ITS | Encounter Summary ---
Author Organization [facility] Address [address] [place] [address] [place] [address] Phone Care Team Providers Care Access Rn Name Role Phone Rito Yousif DO Unavailable Miguel Baker MD Unavailable [email or web address] Amina Metz MD Unavailable [phone] Milla Villagran MD Unavailable [phone] Rito Yousif DO Primary Care Provider [phone] Rito Yousif DO Primary Care Provider [phone] Encounter Details Date Type Department Care Team (Late st Contact Info) Description 03/02/2023 Ancillary Orders Virtual Department [address] [place] [address] Zuleyka Mcfarland PA [address] [facility] [place] [address] Mastodynia Social History Tobacco Use Types Packs/Day [...] Mastodynia documented in this encounter Care Teams Access Rn Relationship Specialty Start Date End Date Rito Yousif DO [email or web address] PCP - General Internal Medicine 06/16/17 03/09/25 Rito Yousif DO [address] [place] [address] PCP - General Internal Medicine 03/10/25 Rito Yousif DO Historical LMR Provider 05/23/17 Miguel Baker MD [email or web address] Historical LMR Provider 05/23/17 Amina Metz MD [address] [place] [address] [email or web address] Historical LMR Provider 05/23/17 Milla Villagran MD [address] [place] [address] Orthopedics & Sports Medicine, [facility] [place] [address] [email or web address] Historical LMR Provider 05/23/17 documented as of this encounter Additional Source Comments The information contained in this document represents components of the legal health record. It is not the complete legal health record.[facility]
--- OUTSIDE RECORDS SUMMARY | 2025-04-24 09:45 | XMS_ITS | Encounter Summary ---
Author Organization [facility] Address [address] [place] [address] [place] [address] Phone Care Team Providers Care Service Member Name Role Phone Rito Yousif DO Unavailable Miguel Baker MD Unavailable [email or web address] Amina Metz MD Unavailable [phone] Milla Villagran MD Unavailable [phone] Rito Yousif DO Primary Care Provider [phone] Rito Yousif DO Primary Care Provider [phone] Encounter Details Date Type Department Care Team (Late st Contact Info) Description 12/16/2022 Procedure Pass [address] [address] Social History Tobacco Use Types Packs/Day Years [...] on filedocumented in this encounter Care Teams Service Member Relationship Specialty Start Date End Date Rito Yousif DO PCP - General Internal Medicine 06/16/17 03/09/25 Rito Yousif DO [address] [place] [address] PCP - General Internal Medicine 03/10/25 Rito Yousif DO Historical LMR Provider 05/23/17 Miguel Baker MD [email or web address] Historical LMR Provider 05/23/17 Amina Metz MD [address] [place] [address] [email or web address] Historical LMR Provider 05/23/17 Milla Villagran MD [address] [place] [address] Orthopedics & Sports Medicine, [place] [address] Historical LMR Provider 05/23/17 documented as of this encounter Additional Source Comments The information contained in this document represents components of the legal health record. It is not the complete legal health record.[facility]
--- OUTSIDE RECORDS SUMMARY | 2025-04-24 09:45 | XMS_ITS | Encounter Summary ---
Author Organization [facility] Address [address] [place] [address] [place] [address] Phone Care Team Providers Care 4 H Youth Development Specialist Name Role Phone Rito Yousif DO Unavailable Ed Taylor MD Unavailable [phone] Miguel Baker MD Unavailable [email or web address] Amina Metz MD Unavailable [phone] Milla Villagran MD Unavailable [phone] Rito Yousif DO Primary Care Provider [phone] Rito Yousif DO Primary Care Provider [phone] Reason for Referral * MRI/CAT Scan - Closed Specialty Diagnoses / Procedures Referred By Contac t Referred To Contact Radiology Diagnoses Spinal stenosis of lumbar region without neurogenic claudication Procedures CT Lumbar Spine Randy Barcenas MD [address] [place] [address] Dr [address]_[place] [address] Phone: tel: fax: Referral ID Status Reason Start Date Expiration Date Visits Re quested Visits Authorized [id number] Closed 09/08/2020 09/08/2021 1 1 Encounter Details Date Type Department Care Team (Latest Contact Info) Description 09/08/2020 Ancillary Orders Virtual Department [address] [place] [address] Randy Barcenas MD [address] [place] [address] Dr [address]_[place] [address] Spinal stenosis of lumbar region without neurogenic [...] severe atL1-L2. 6. Scoliosis. Randy Barcenas MD [facility] CT XSPECIALTY ORDERA BLES Final Result documented in this encounter Visit Diagnoses Diagnosis Spinal stenosis of lumbar region without neurogenic claudication Spinal stenosis of lumbar region without neurogenic claudication documented in this encounter Care Teams 4 H Youth Development Specialist Relationship Specialty Start Date End Date Rito Yousif DO PCP - General Internal Medicine 06/16/17 03/09/25 Rito Yousif DO [address] [place] [address] PCP - General Internal Medicine 03/10/25 Rito Yousif DO Historical LMR Provider 05/23/17 Ed Taylor MD [address] [place] [address] Historical LMR Provider 05/23/17 08/14/21 Miguel Baker MD [email or web address] Historical LMR Provider 05/23/17 Amina Metz MD [address] [place] [address] [email or web address] Historical LMR Provider 05/23/17 Milla Villagran MD [address] [place] [address] Orthopedics & Sports Medicine, [place] [address] [email or web address] Historical LMR Provider 05/23/17 documented as of this encounter Additional Source Comments The information contained in this document represents components of the legal health record. It is not the complete legal health record.[facility]
--- OUTSIDE RECORDS SUMMARY | 2025-04-24 09:45 | XMS_ITS | Encounter Summary ---
Author Organization [facility] Address [address] [place] [address] [place] [address] Phone Care Team Providers Care Sap Portal Consultant Name Role Phone Rito Yousif DO Unavailable Miguel Baker MD Unavailable [email or web address] Amina Metz MD Unavailable [phone] Milla Villagran MD Unavailable [phone] Rito Yousif DO Primary Care Provider [phone] Rito Yousif DO Primary Care Provider [phone] Encounter Details Date Type Department Care Team (Late st Contact Info) Description 12/14/2022 Procedure Pass [address] [address] Social History Tobacco Use Types Packs/Day Years [...] on filedocumented in this encounter Care Teams Sap Portal Consultant Relationship Specialty Start Date End Date Rito Yousif DO PCP - General Internal Medicine 06/16/17 03/09/25 Rito Yousif DO [address] [place] [address] PCP - General Internal Medicine 03/10/25 Rito Yousif DO Historical LMR Provider 05/23/17 Miguel Baker MD [email or web address] Historical LMR Provider 05/23/17 Amina Metz MD [address] [place] [address] [email or web address] Historical LMR Provider 05/23/17 Milla Villagran MD [address] [place] [address] Orthopedics & Sports Medicine, [place] [address] Historical LMR Provider 05/23/17 documented as of this encounter Additional Source Comments The information contained in this document represents components of the legal health record. It is not the complete legal health record.[facility]
--- OUTSIDE RECORDS SUMMARY | 2025-04-24 09:45 | XMS_ITS | Encounter Summary ---
Author Organization [facility] Address [address] [place] [address] [place] [address] Phone Care Team Providers Care Grocery Sacker Name Role Phone Rito Yousif DO Unavailable Ed Taylor MD Unavailable [phone] Miguel Baker MD Unavailable [email or web address] Amina Metz MD Unavailable [phone] Milla Villagran MD Unavailable [phone] Rito Yousif DO Primary Care Provider [phone] Rito Yousif DO Primary Care Provider [phone] Encounter Details Date Type Department Care Team (Late st Contact Info) Description 01/05/2018 Ancillary Orders Virtual Department [address] [place] [address] Rito Yousif DO [address] [employer] [place] [address] [email or web address] Breast screening Social History Tobacco Use Types [...] MAMMOGRAM (WITH DIGITAL BREAST TOMOSYNTHESIS AND R2 INSURANCE ADJUSTER) HISTORY: Screening. COMPARISON: Mammograms dating back to 2011, most recently 02/14/2017. TECHNIQUE: Digital breast tomosynthesis was performed in craniocaudal and mediolateral oblique projections. Reconstructed screening 2-D views were generated from the tomosynthesis images. Images were interpreted in conjunction with R-2 Image Anesthesia Director computer-aided detection. FINDINGS: Breast density: There are scattered fibroglandular densities. There are no suspicious masses, suspicious areas of architectural distortion or suspicious clusters of microcalcifications. Procedure Note Nneka Peter MD - 02/15/2018 BILATERAL DIGITAL SCREENING MAMMOGRAM (WITH DIGITAL BREAST TOMOSYNTHESISAND R2 INSURANCE ADJUSTER) HISTORY: Screening. COMPARISON: Mammograms dating back to 2011, most recently 02/14/2017. TECHNIQUE: Digital breast tomosynthesis was performed in craniocaudal andmediolateral oblique projections. Reconstructed screening 2-D views weregenerated from the tomosynthesis images. Images were interpreted inconjunction with R-2 Image Anesthesia Director computer-aided detection. FINDINGS: Breast density: There are [...] unspecified documented in this encounter Care Teams Grocery Sacker Relationship Specialty Start Date End Date Rito Yousif DO PCP - General Internal Medicine 06/16/17 03/09/25 Rito Yousif DO [address] [place] [address] PCP - General Internal Medicine 03/10/25 Rito Yousif DO Historical LMR Provider 05/23/17 Ed Taylor MD [address] [place] [address] Historical LMR Provider 05/23/17 08/14/21 Miguel Baker MD [email or web address] Historical LMR Provider 05/23/17 Amina Metz MD [address] [place] [address] Historical LMR Provider 05/23/17 Milla Villagran MD [address] [place] [address] Orthopedics & Sports Medicine, [facility] [place] [address] [email or web address] Historical LMR Provider 05/23/17 documented as of this encounter Additional Source Comments The information contained in this document represents components of the legal health record. It is not the complete legal health record.[facility]
--- OUTSIDE RECORDS SUMMARY | 2025-04-24 09:45 | XMS_ITS | Clinical Summary ---
Author Organization [facility] Address [address] [place] [address] [place] [address] Phone Care Team Providers Care Apple Picking Supervisor Name Role Phone Rito Yousif DO Unavailable Miguel Baker MD Unavailable [email or web address] Amina Metz MD Unavailable [phone] Milla Villagran MD Unavailable [phone] Rito Yousif DO Primary Care Provider [phone] Allergies Active Allergy Reactions Criticality Noted Date Comments Qksxfau-Emj-Voi Reductase Inhibitors Diarrhea 08/28/2017 Medications amLODIPine (NORVASC) [...] at bedtime as needed with food Active multivit-cigarette package examiner als-ferrous fum (MULTI VITAMIN) 9 mg iron/15 mL Liqd 2 (two) times a day. 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 She will discuss this with her. Bilateral [...] She will continue to use warmth, enlarged payable manager on tools and utensils. 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 No trigger fingers are seen. 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 We discussed utility of enlarged payable manager on tools and utensils and the judicious use of warmth. She is status post septic arthritis of the index finger of the left hand and this has not recurred fortunately. Assessment & Plan (06/20/2018 5:05 PM EST): She will continue using the Voltaren gel. She will continue the tramadol and Tylenol. Enlarged payable manager on tools and utensils were recommended. Septic [...] hospital encounter of 03/31/21 (from the past 51357 hour(s)) DXA Monitoring Narrative Reason for exam (per EHR order): Osteopenia Additional clinical information obtained from the EHR: None. TECHNIQUE: Bone densitometry on HoloBiocept A ([id number]). The least significant change for this machine [...] hospital encounter of 03/29/19 (from the past 23210 hour(s)) DXA Monitoring Narrative This is a [...] hospital encounter of 03/29/19 (from the past 30630 hour(s)) DXA Monitoring Narrative This is a [...] hospital encounter of 03/29/19 (from the past 24066 hour(s)) DXA Monitoring Narrative This is a [...] Encounters Date Type Department Care Team Description 04/11/2025 4:15 PM EDT - 04/11/2025 11:59 PM EDT Hospital Encounter [address] [address] Desmond Long NP Discharge Disposition: Home or Self Care 04/11/2025 Transcribe Orders [facility] Department [address] [place] [address] Desmond Long NP 04/11/2025 Transcribe Orders [facility] Department [address] [place] [address] Desmond Long NP Left leg pain (Primary Dx); Pain of left calf 03/10/2025 4:39 PM EDT - 03/10/2025 11:59 PM EDT Hospital Encounter [address] [address] Zuleyka Mcfarland PA Discharge Disposition: Home or Self Care 03/10/2025 Ancillary Orders [address] [address] Zuleyka Mcfarland PA Left leg pain (Primary Dx) 02/11/2025 5:11 PM EDT - 02/11/2025 11:59 PM EDT Hospital Encounter [facility] [address] [place] [address] Zuleyka Mcfarland PA Discharge Disposition: Home or Self Care 02/11/2025 Transcribe Orders [facility]imen [facility] [address] [place] [address] Zuleyka Mcfarland PA Acute UTI (Primary Dx) from Last 3 Months Immunizations [...] 03/07/2024 03/07/2022, 02/05, 03/03/2020, Additional history exists INFLUENZA VACCINE (#1) 2025 , 05/05/2022, 05/05/2022, Additional history exists COVID-19 VACCINE (3 - season) 2025 12/02/2020, 12/02/2020, 11/11/2020, Additional history exists SCREENING FOR DIABETES 09/26/2025 [...] Procedure Name Priority Date/Time Associated Diagnosis Comments US LOWER EXTREMITY VEINS DUPLEX (LEFT) Routine 04/11/2025 5:10 PM EDT Left leg pain Pain of left calf XR TIBIA FIBULA 2 VIEWS (LEFT) Routine [...] Recently Relevant to Health Maintenance Results * US Lower Extremity Veins Duplex [...] clinician's provided indication for this examination in [facility]: Outside Radiology Order; left leg pain [...] clinician's provided indication for this examination in [facility]:Outside Radiology Order; left leg pain TECHNIQUE: [...] the visualizedveins of the left lower extremity. Desmond Long NP CV US VASCULAR Final R esult * XR Tibia Fibula 2 Views (Left) (03/10/2025 4:45 PM EDT) Anatomical Region Laterality Modality Leg Left Computed Radiogr aphy 03/11/2025 9:32 AM EDT Impressions 03/11/2025 9:58 AM EDT Mild diffuse soft tissue swelling without acute osseous abnormality. Narrative 03/11/2025 9:58 AM EDT XR TIBIA FIBULA 2 VIEWS (LEFT) Referring clinician's provided indication for this examination in [facility]: Pain COMPARISON: XR KNEE 4 OR [...] clinician's provided indication for this examination in [facility]:Pain COMPARISON: XR KNEE 4 OR MORE [...] (02/11/2025 5:17 PM EDT) COLOR Yellow Yellow [facility] CLARITY Clear [facility] GLUCOSE Negative Negative [facility] BILI Negative Negative [facility] KETONES Negative Negative [facility] SPECIFIC GRAVITY 1.025 1.005 - 1.030 [facility] BLOOD Negative Negative [facility] PH 6.0 5.0 - 8.0 [facility] Protein-UA Negative Negative [facility] NITRITE Negative Negative [facility] Leukocyte esterase, ur Negative Negative [facility] Urine (Urine) 02/11/2025 5:1 7 PM EDT 02/11/2025 5:19 PM EDT us Zuleyka JOYCE URINE ORDERABLES Final Resu lt [facility] [address] [place] [address] * BI MAMMOGRAM SCREENING WITH TOMOSYNTHESIS WITH [...] Bigda DO IMG MG EXAMS Final Result * [...] the EHR: None. TECHNIQUE: Bone densitometry on Swyzzle A ([id number]). The least significant change for this machine [...] the EHR: None. TECHNIQUE: Bone densitometry on HoloBiocept A ([id number]). The leastsignificant change for this machine is [...] EST) TSH 0.70 0.27 - 4.20 uIU/mL [facility] Blood 07/03/2019 10:5 6 AM EST 07/03/2019 10:58 AM EST us Rito Yousif LAB BLOOD ORDERABLES Final Resul t Performing Organization Address [facility] Co de Phone Number [address] [address] * (ABNORMAL) Lipid panel (02/15/2019 7:43 AM EDT) HDL 68 mg/dL [facility] Comment: Interpretation <40 mg/dL: Low HDL cholesterol (major risk factor for CHD) Greater than or equal to 60 mg/dL: High HDL cholesterol ( negative risk factor for CHD) HDL - cholesterol is affected by a number of factors, e.g. smoking, excerise, hormones, sex and age. CHOLESTEROL 226 0 - 240 mg/dL [facility] TRIGLYCERIDES 73 30 - 160 mg/dL [facility] LDL 143(H) 50 - 129 mg/dL [facility] Comment: LDL levels in terms of risk for coronary heart disease: <100 mg/dL: Optimal 100-129 mg/dL: Near or above optimal 130-159 mg/dL: Borderline high 160-189 mg/dL: High >190 mg/dL: Very High CARDIAC RISK RATIO 3.3 3.3 - 4.4 [facility] Blood 02/15/2019 7:43 AM EDT 02/15/2019 7:47 AM EDT us Rito Yousif DO LAB BLOOD ORDERABLES Final Resul t Performing Organization Address [facility]/ZIP Co de Phone Number [address] [address] * Hepatitis C viral load (PCR) (07/13/2018 7:50 AM EST) HCV RNA DETECT/QNT Undetected Undetected IU/mL [facility] Comment: (NOTE) Result in log IU/mL is Undetected. ADDITIONAL INFORMATION The quantification range of this assay is 15 to 100,000,000 IU/mL (1.18 log to 8.00 log IU/mL). Testing was performed using the demetrice HCV test ([employer] with the demetrice 6800 System. Blood (Blood) 07/13/2018 7:5 0 AM EST 07/13/2018 8:04 AM EST us Rito Jin Nica DO NON CULTURE MICROBIOLOGY Final R esult [facility] [address] [place] [address] from Last 3 Months or Most Recently Relevant to Health Maintenance Insurance MEDICARE PART A & B [facility] MEDICARE SUPPLEMENT MEDICARE PART A & B [employer] MEDICARE SUPPLEMENT MEDICARE PART A & B [facility] MEDICARE SUPPLEMENT MEDICARE PART A & B [employer] MEDICARE SUPPLEMENT MEDICARE PART A & B [employer] MEDICARE SUPPLEMENT MEDICARE PART A & B [employer] MEDICARE SUPPLEMENT MEDICARE PART A & B [employer] MEDICARE SUPPLEMENT MEDICARE PART A & B [employer] MEDICARE SUPPLEMENT MEDICARE PART A & B [employer] MEDICARE SUPPLEMENT Care Teams Apple Picking Supervisor Relationship Specialty Start Date End Date Nica Rito DO Jin [address] [place] [address] PCP - General Internal Medicine 03/10/25 Rito Yousif DO Historical LMR Provider 05/23/17 Miguel Baker MD [email or web address] Historical LMR Provider 05/23/17 Amina Metz MD [address] [place] [address] [email or web address] Historical LMR Provider 05/23/17 Milla Villagran MD [address] [place] [address] Orthopedics & Sports Medicine, [facility] [place] [address] Historical LMR Provider 05/23/17 Additional Source Comments The information contained in this document represents components of the legal health record. It is not the complete legal health record.[facility]
--- OUTSIDE RECORDS SUMMARY | 2025-04-24 09:45 | XMS_ITS | Encounter Summary ---
Author Organization [facility] Address [address] [place] [address] [place] [address] Phone Care Team Providers Care Soldering Machine Operator Name Role Phone Rito Yousif DO Unavailable Miguel Baker MD Unavailable [email or web address] Amina Metz MD Unavailable [phone] Milla Villagran MD Unavailable [phone] Rito Yousif DO Primary Care Provider [phone] Rito Yousif DO Primary Care Provider [phone] Encounter Details Date Type Department Care Team (Late st Contact Info) Description 04/03/2023 Ancillary Orders [facility], [facility] [address] [place] [address] Rito Yousif DO [address] [facility] [place] [address] [email or web address] Abnormal finding on mammography Social History Tobacco [...] mammography documented in this encounter Care Teams Soldering Machine Operator Relationship Specialty Start Date End Date Rito Yousif DO PCP - General Internal Medicine 06/16/17 03/09/25 Rito Yousif DO [address] [place] [address] PCP - General Internal Medicine 03/10/25 Rito Yousif DO [email or web address] Historical LMR Provider 05/23/17 Miguel Baker MD [email or web address] Historical LMR Provider 05/23/17 Amina Metz MD [address] [place] [address] [email or web address] Historical LMR Provider 05/23/17 Milla Villagran MD [address] [place] [address] Orthopedics & Sports Medicine, [facility] [place] [address] [email or web address] Historical LMR Provider 05/23/17 documented as of this encounter Additional Source Comments The information contained in this document represents components of the legal health record. It is not the complete legal health record.[facility]
--- OUTSIDE RECORDS SUMMARY | 2025-04-24 09:45 | XMS_ITS | Encounter Summary ---
Author Organization [facility] Address [address] [place] [address] [place] [address] Phone Care Team Providers Care Senior Oracle Database Administrator Name Role Phone Rito Yousif DO Unavailable Miguel Baker MD Unavailable [email or web address] Amina Metz MD Unavailable [phone] Milla Villagran MD Unavailable [phone] Rito Yousif DO Primary Care Provider [phone] Rito Yousif DO Primary Care Provider [phone] Reason for Visit * Reason Comments Medication Refill Encounter Details Date Type Department Care Team (Late st Contact Info) Description 05/09/2022 Refill [facility] Rheumatology [address] [place] [address] Miguel Baker MD [email or web address] Medication Refill Social History Tobacco Use Types [...] foot documented in this encounter Care Teams Senior Oracle Database Administrator Relationship Specialty Start Date End Date Rito Yousif DO PCP - General Internal Medicine 06/16/17 03/09/25 Rito Yousif DO [address] [place] [address] PCP - General Internal Medicine 03/10/25 Rito Yousif DO Historical LMR Provider 05/23/17 Miguel Baker MD [email or web address] Historical LMR Provider 05/23/17 Amina Metz MD [address] [place] [address] [email or web address] Historical LMR Provider 05/23/17 Milla Villagran MD [address] [place] [address] Orthopedics & Sports Medicine, [facility] [place] [address] Historical LMR Provider 05/23/17 documented as of this encounter Additional Source Comments The information contained in this document represents components of the legal health record. It is not the complete legal health record.[facility]
--- OUTSIDE RECORDS SUMMARY | 2025-04-24 09:45 | XMS_ITS | Encounter Summary ---
Author Organization [facility] Address [address] [place] [address] [place] [address] Phone Care Team Providers Care Accounts Executive Name Role Phone Rito Yousif DO Unavailable Ed Taylor MD Unavailable [phone] Miguel Baker MD Unavailable [email or web address] Amina Metz MD Unavailable [phone] Milla Villagran MD Unavailable [phone] Rito Yousif DO Primary Care Provider [phone] Rito Yousif DO Primary Care Provider [phone] Encounter Details Date Type Department Care Team (Late st Contact Info) Description 08/18/2020 Procedure Pass [facility], [address] [address] Social History Tobacco Use Types Packs/Day Years [...] on filedocumented in this encounter Care Teams Accounts Executive Relationship Specialty Start Date End Date Rito Yousif DO PCP - General Internal Medicine 06/16/17 03/09/25 Rito Yousif DO [address] [place] [address] PCP - General Internal Medicine 03/10/25 Rito Yousif DO Historical LMR Provider 05/23/17 Ed Taylor MD [address] [place] [address] Historical LMR Provider 05/23/17 08/14/21 Miguel Baker MD [email or web address] Historical LMR Provider 05/23/17 Amina Metz MD [address] [place] [address] Historical LMR Provider 05/23/17 Milla Villagran MD [address] [place] [address] Orthopedics & Sports Medicine, [facility] [place] [address] [email or web address] Historical LMR Provider 05/23/17 documented as of this encounter Additional Source Comments The information contained in this document represents components of the legal health record. It is not the complete legal health record.[facility]
--- OUTSIDE RECORDS SUMMARY | 2025-04-24 09:45 | XMS_ITS | Encounter Summary ---
Author Organization [facility] Address [address] [place] [address] [place] [address] Phone Care Team Providers Care Heart Nurse Name Role Phone Rito Yousif DO Unavailable Miguel Baker MD Unavailable [email or web address] Amina Metz MD Unavailable [phone] Milla Villagran MD Unavailable [phone] Rito Yousif DO Primary Care Provider [phone] Rito Yousif DO Primary Care Provider [phone] Encounter Details Date Type Department Care Team (Late st Contact Info) Description 12/17/2021 Procedure Pass [address] [address] Social History Tobacco Use Types Packs/Day Years [...] on filedocumented in this encounter Care Teams Heart Nurse Relationship Specialty Start Date End Date Rito Yousif DO PCP - General Internal Medicine 06/16/17 03/09/25 Rito Yousif DO [address] [place] [address] PCP - General Internal Medicine 03/10/25 Rito Yousif DO Historical LMR Provider 05/23/17 Miguel Baker MD [email or web address] Historical LMR Provider 05/23/17 Amina Metz MD [address] [place] [address] [email or web address] Historical LMR Provider 05/23/17 Milla Villagran MD [address] [place] [address] Orthopedics & Sports Medicine, [place] [address] Historical LMR Provider 05/23/17 documented as of this encounter Additional Source Comments The information contained in this document represents components of the legal health record. It is not the complete legal health record.[facility]
--- OUTSIDE RECORDS SUMMARY | 2025-04-24 09:45 | XMS_ITS | Patient Health Record ---
Author Organization [facility] Address [address] [facility] [address] [place] [address] Care Team Providers Care Tanker Driver Name Role Phone Rito Yousif DO Primary Care Provider UnavailDesmond Nettles Unavailable [phone] Zuleyka Munroe Unavailable Unavailable Nafisa Persaud Unavailable [phone] Allergies Allergen (clinical drug ingredient) Drug/Non Drug Allergy documented on EMR Reaction Allergy Type Onset Date Status adhesive (uncoded) Unknown Allergy A ctive Substance with 7-gyrvrlh-4-methylgluta ryl-coenzyme A reductase inhibitor mechanism of action (substance) Statins Unknown Drug Allergy Active Reason For Referral No Information Medications Medication SIG (Take, Route, Frequency, Duration) Notes Start Date End Date Status Ipratropium-Albuterol 0.5-2.5 (3) MG/3ML 3 mL as needed Inhalation every 6 hrs Active Montelukast Sodium 10 MG 1 tablet Orally Once a day Active Nac 600 600 MG 1 capsule Orally Onc e a day Active predniSONE 10 MG 1 tablet with food o r milk Orally Once a day Active Fish Oil Active Gabapentin 600 MG 1 tablet Orally Once a day Active Esomeprazole Magnesium 40 MG 1 capsule 1/2 to 1 hour before morning meal Orally Once a day Active ProAir RespiClick 108 (90 Base) MCG/ACT 1 puff as needed Inhalation every 4 hrs Active Cephalexin 500 MG 1 capsule Orally lore ry 6 hrs Not-Taking Synthroid 125 MCG 1 tablet in the morn ing on an empty stomach Orally Once a day Active amLODIPine Besylate 5 MG 1 tablet Orally Once a day Active traMADol HCl 50 MG 1 tablet as needed Orally Once a day Active Calcium Active Vitamin D3 50 MCG (2000 UT) 1 capsule Orally Once a day Active Dexilant 60 MG 1 capsule 1/2 to 1 h our before morning meal Orally Once a day Active Social History Tobacco Use: Social History Observation Description Date Details (start date - stop date) Never Smoker NA - NA Tobacco Control (Standard) Question Answer Notes Tobacco use: Nonsmoker Section Notes: Never smoker No Alcohol Lives at home Independent Never smoker No Alcohol Lives at home Independent Problems Problem Type SNOMED Code ICD Code Onset Dates Problem Status W/U Status Risk Notes Problem Lumbosacral spondylosis without myelopathy (63152865) Other spondylosis, lumbar region (M47.896) Active confirmed Problem Open wound of left lower leg (83416656561129324) Unspecified open wound, left lower leg, subsequent encounter (S81.802D) Active confirmed Problem Vitamin D deficiency (89968467) Vitamin D deficiency (E55.9) Active confirmed Problem Hypercholesterolemia (76838464) Hypercholesterolemia (E78.00) Active confirmed Problem Gastroesophageal reflux disease (198813251) GERD (gastroesophageal reflux disease) (K21.9) Active confirmed Problem Asthma (819864416) Asthma (J45.909) Active conf irmed Problem Chronic pain (61412398) Chronic pain (G89.29) Active confirmed Problem Osteoarthritis (221215144) Osteoarthritis (M19.90) Active confirmed Problem Hypothyroidism (86652127) Hypothyroidism (E03.9) Active confirmed Problem Basal cell carcinoma (2158255) Basal cell carcinoma (C44.91) Active confirmed Problem Benign hypertension (43675001) Benign hypertension (I10) Active confirmed Vital Signs Heart Rate 61 /min 04/18/2025 Temperature 97.4 degrees Fahrenheit 04/18/2025 Respiratory Rate 16 /min 04/18/2025 Blood pressure diastolic 80 mm Hg 04/18/2025 Oximetry 96 % 04/18/2025 Height-cm 154.94 cm 04/18/2025 Weight-kg 68.04 kg 04/18/2025 Height 61 in 04/18/2025 Blood pressure systolic 130 mm Hg 04/18/2025 Weight 150 lbs 04/18/2025 BMI 28.34 kg/m2 04/18/2025 Encounters Encounter Location Date Provider Diagnosis [address] [address] 03/21/2025 Desmond Long Unspecified open wou nd, left lower leg, initial encounter S81.802A ; Hypercholesterolemia E78.00 and Benign hypertension I10 [address] [address] 03/24/2025 Desmond Long Unspecified open wou nd, left lower leg, initial encounter S81.802A ; Hypercholesterolemia E78.00 and Benign hypertension I10 [facility] [address] [address] 03/28/2025 Nafisa Persaud Puncture wound without foreign body, left lower leg, subsequent encounter S81.832D ; Local infection of skin and subcutaneous tissue L08.9 ; Edema R60.9 ; Hypercholesterolemia E78.00 and Benign hypertension I10 [facility] [address] [address] 03/31/2025 Desmond Long Unspecified open wou nd, left lower leg, initial encounter S81.802A ; Hypercholesterolemia E78.00 ; Unspecified open wound, left lower leg, subsequent encounter S81.802D and Benign hypertension I10 [address] [address] 04/04/2025 Desmond Long Unspecified open wou nd, left lower leg, subsequent encounter S81.802D ; Benign hypertension I10 ; Puncture wound without foreign body, left lower leg, subsequent encounter S81.832D ; Local infection of skin and subcutaneous tissue L08.9 and Hypercholesterolemia E78.[address] [address] 04/11/2025 Desmond Long Hypercholesterolemia E78.00 ; Benign hypertension I10 and Unspecified open wound, left lower leg, subsequent encounter S81.802D [address] [address] 04/18/2025 Desmond Long Hypercholesterolemia E78.00 ; Benign hypertension I10 and Unspecified open wound, left lower leg, subsequent encounter S81.802D [facility] [address] [address] 03/18/2025 Desmond Long [facility] [address] [address] 03/21/2025 Desmond Long [facility] [address] [address] 03/27/2025 Desmond Long Assessments Encounter Date Diagnosis (ICD Code) Assessment Notes Treatment Notes Treatment Clinical Notes Section Notes 03/21/2025 Unspecified open wou nd, left lower leg, initial encounter (ICD-10 - S81.802A) 03/24/2025 Unspecified open wou nd, left lower leg, initial encounter (ICD-10 - S81.802A) 03/28/2025 Puncture wound witho ut foreign body, left lower leg, subsequent encounter (ICD-10 - S81.832D) On exam, vital signs stable, afebrile, non-ill appearing. I removed the dressing and examined the wound on the left lateral leg. Wound is measuring approximately the same, there is surrounding erythema and warmth. Wound bed with slough, fibrin and devitalized tissue. There is no odor, no purulence. I discussed the indication for debridement and patient was agreeable to procedure. I performed debridement of the wound as outlined above. Wound was cleaned with Dakins, rinsed with saline and Aquacel ag was applied to the wound bed, zinc to periwound secured with dsd. Tubigrip with roz wrap was applied to the left leg. She tolerated the procedure well. Edita returns today for treatment of left leg trauma wound. There is signs of infection around the wound. Wound cultures positive for Serratia Marcescens. I discussed the results with patient. Will begin Ciprofloxacin BID, side effects and allergies reviewed with patient. I advised her to DC the Cephalexin. Continue with Aquacel ag to the wound to be changed every other day. ABIs were attempted today however the machine was malfunctioning. Will attempt again next week. She has been tolerating the roz wrap, therefore will increase compression with tubigrip and roz wrap. I encouraged her to elevate her legs. She will return in 1 week for a follow up visit. I spent 40 minutes of direct and indirect care of this patient reviewing records, gathering H&P, evaluation, formulating plan, education and documentation. I Nafisa AVENDAÑO, examined, evaluated and treated the patient. Dr. Gerardo Olivia was available for any question or concerns that I may have had. 03/31/2025 Unspecified open wou nd, left lower leg, initial encounter (ICD-10 - S81.802A) 03/31/2025 Unspecified open wou nd, left lower leg, subsequent encounter (ICD-10 - S81.802D) 03/31/2025 Hypercholesterolemia (ICD-10 - E78.00) 04/04/2025 Unspecified open wou nd, left lower leg, subsequent encounter (ICD-10 - S81.802D) 04/11/2025 Hypercholesterolemia (ICD-10 - E78.00) 04/18/2025 Hypercholesterolemia (ICD-10 - E78.00) 04/18/2025 Benign hypertension (ICD-10 - I10) 04/11/2025 Benign hypertension (ICD-10 - I10) 04/04/2025 Benign hypertension (ICD-10 - I10) 03/31/2025 Benign hypertension (ICD-10 - I10) 03/28/2025 Local infection of s kin and subcutaneous tissue (ICD-10 - L08.9) 03/24/2025 Hypercholesterolemia (ICD-10 - E78.00) 03/21/2025 Hypercholesterolemia (ICD-10 - E78.00) 03/21/2025 Benign hypertension (ICD-10 - I10) 03/24/2025 Benign hypertension (ICD-10 - I10) 04/04/2025 Puncture wound witho ut foreign body, left lower leg, subsequent encounter (ICD-10 - S81.832D) continue with current treatment regimen of aquacel. Continue with wound care FU, with next appointment on monday due to being a holiday 03/28/2025 Edema (ICD-10 - R60.9) 04/11/2025 Unspecified open wou nd, left lower leg, subsequent encounter (ICD-10 - S81.802D) 04/18/2025 Unspecified open wou nd, left lower leg, subsequent encounter (ICD-10 - S81.802D) 04/04/2025 Local infection of s kin and subcutaneous tissue (ICD-10 - L08.9) 03/28/2025 Hypercholesterolemia (ICD-10 - E78.00) 03/28/2025 Benign hypertension (ICD-10 - I10) 04/04/2025 Hypercholesterolemia (ICD-10 - E78.00) 03/21/2025 Other Today they are noted to be afebrile, and all other vital signs are noted to be in normal limits for this patient. Nursing removed there dressing(s), and I examined there wound(s), to left lower leg, with no overt underlying s/s of infectious property noted, and no foul odor. WOUND NOTED TO: left lower leg wound, trauma in origin: There is a firm raised area noted underneath periwound that was a hematoma that was able to be expressed, and no surround sking is flat and soft to palpation. The wound bed is not able to be visualied. There was undermining noted today. the periwound was with scant amount of finbrinous rim. I was able to express a moderate abount of think rojelio blood with some clots noted. After, patietn with dereased pain. I reviewed debridement and rational, and they were agreeable to the procedure. I then procedure with debridement to removed devitalized tissue as outline above. They tolerated the procedure well. I cleansed there wound with Dakin's, then rinsed with saline, thereafter nursing applied aquacel rope to gently fill opening, zinc to the periwound, followed by a dry-clean dressing. Continue with the above dressing orders every other day made FU appointment on monday for a nursing visit in case her was not able to performing dressing changes. She stated wanted to come ot this office vs other office location continue with your scheduled FU wound care appointment and call with any questions or concerns I, Desmond Long, MSN, QUALITY COMPLIANCE CONSULTANT, CONTINUOUS IMPROVEMENT FACILITATOR-C, examined, evaluated , and treated the patient. Dr. Gerardo Olivia was available for any questions or concerns that I may have had. A total of 35 minutes was spent on this visit (face to face and non face to face) documenting HPI and performing physical exam, reviewing previous notes and testing, reviewing and adjusting treatment plan, counseling the patient on treatment choices, disease process, expected outcomes, and documenting the findings in the note. 03/28/2025 Other 03/31/2025 Other Today they are noted to be afebrile, and all other vital signs are noted to be in normal limits for this patient. Nursing removed there dressing(s), and I examined there wound(s), with no overt underlying s/s of infectious property noted, and no foul odor. WOUND NOTED TO: left lower leg wound, trauma in origin: The wound has improved today based on measurements and assessment from last visit.The wound bed is granular and with areas of loose nonadherent yellowish slough and hypergranulation. The periwound was noted with a pocket of fluid at 8 o'clock and 4 o'clock and drained moderate amount of clear thin fluid. The wound is oval I reviewed debridement and rational, informed consent, risks, and benefits explained, and they were agreeable to the procedure. I then procedure with debridement to removed devitalized tissue as outline above. Silver nitrate applied to hypergranulated tissue.They tolerated the procedure well. I cleansed there wound with Dakin's, then rinsed with saline, thereafter nursing applied Aquacel to the wound bed, zinc to the periwound, followed by a dry-clean dressing. Tubi and roz wrap for compression Continue with the above dressing orders every other day continue with your scheduled FU wound care appointment and call with any questions or concerns WITH COMPRESSION: tubi and roz wrap They were instructed to elevate ankles to heart level when sitting to keep control of leg edema. If they have pain to the leg, they will elevate. If elevation does not relieve pain in 1 hr, they need to be evaluated. Call us or PCP or seek urgent care. They understand and agree with plan and all questions were answered to their satisfaction. Discussed red flag signs and symptoms of worsening wound, and underlying infection, when to call the office, and when to seek higher level of care patient verbalized understanding regarding plan of care and all questions answered. I, Desmond Long, MSN, QUALITY COMPLIANCE CONSULTANT, CONTINUOUS IMPROVEMENT FACILITATOR-C, examined, evaluated, and treated the patient. Dr. Gerardo Olivia was available for any questions or concerns that I may have had. 04/11/2025 Other Today Edita is afebrile, and all other vital signs are noted to be in normal limits for this patient. Nursing removed there dressing(s), and I examined there wound(s), with no underlying s/s of infectious property noted, and no foul odor. WOUND NOTED TO: left lower leg wound, trauma in origin: The wound improved today based on measurements and assessment from last visit.The wound bed is granular with scant amount of slough. The periwound is fibrinous. I reviewed debridement and rational, informed consent, risks, and benefits explained, and they were agreeable to the procedure. I then procedure with debridement to removed devitalized tissue as outline above. Silver nitrate applied to hypergranulated tissue.They tolerated the procedure well. I cleansed there wound with Dakin's, then rinsed with saline, thereafter nursing applied Adaptic followed by Aquacel to the wound bed, zinc to the periwound, followed by a dry-clean dressing. Tubi and roz wrap for compression Continue with the above dressing orders every other day continue with weekly wound care appointment WITH COMPRESSION: tubi and roz wrap They were instructed to elevate ankles to heart level when sitting to keep control of leg edema. If they have pain to the leg, they will elevate. If elevation does not relieve pain in 1 hr, they need to be evaluated. Call us or PCP or seek urgent care. They understand and agree with plan and all questions were answered to their satisfaction. Discussed red flag signs and symptoms of worsening wound, and underlying infection, when to call the office, and when to seek higher level of care at hospital patient verbalized understanding regarding plan of care and all questions answered. Pt going to urgent care after appointment, urgent care in [place] (part of [facility]) to obtain US of left leg to rule out DVT with acute onset mid-calf pain with sharp shooting pain that is positional. I, Desmond Long, MSN, QUALITY COMPLIANCE CONSULTANT, CONTINUOUS IMPROVEMENT FACILITATOR-C, examined, evaluated, and treated the patient. Dr. Gerardo Olivia was available for any questions or concerns that I may have had. 04/18/2025 Other Today Edita is afebrile, and all other vital signs are noted to be in normal limits for this patient. Nursing removed there dressing(s), and I examined there wound(s), with no underlying s/s of infectious property noted, and no foul odor. WOUND NOTED TO: left lower leg wound, trauma in origin: The wound improved today based on measurements and assessment from last visit.The wound bed is granular with scant amount of slough. The periwound is fibrinous. I reviewed debridement and rational, informed consent, risks, and benefits explained, and they were agreeable to the procedure. I then procedure with debridement to removed devitalized tissue as outline above. Silver nitrate applied to hypergranulated tissue.They tolerated the procedure well. I cleansed there wound with Dakin's, then rinsed with saline, thereafter nursing applied Adaptic followed by Aquacel to the wound bed, zinc to the periwound, followed by a dry-clean dressing. Tubi and roz wrap for compression Continue with the above dressing orders every other day she will have a two week follow up due to appointment next week, however i suspect that the wound will resolve by then WITH COMPRESSION: tubi and roz wrap They were instructed to elevate ankles to heart level when sitting to keep control of leg edema. If they have pain to the leg, they will elevate. If elevation does not relieve pain in 1 hr, they need to be evaluated. Call us or PCP or seek urgent care. They understand and agree with plan and all questions were answered to their satisfaction. Discussed red flag signs and symptoms of worsening wound, and underlying infection, when to call the office, and when to seek higher level of care at hospital patient verbalized understanding regarding plan of care and all questions answered. Pt going to urgent care after appointment, urgent care in [place] (part of [facility]) to obtain US of left leg to rule out DVT with acute onset mid-calf pain with sharp shooting pain that is positional. I, Desmond Long, MSN, QUALITY COMPLIANCE CONSULTANT, CONTINUOUS IMPROVEMENT FACILITATOR-C, examined, evaluated, and treated the patient. Dr. Gerardo Olivia was available for any questions or concerns that I may have had. Plan Of Treatment Next Appt Details Provider Name:Desmond Long, 05/02/2025 09:30:00 AM, [address] [place] [address], [phone], Insurance Providers Payer Name Payer Address Payer Phone Subscriber Number Group Number Insured Name Patient Relationship to Insured Coverage Start Date Coverage End Date Medicare [address] [facility] [place], [place] [id number] Edita Suárez Self - patient is the insured 1 for Life [address] [place] [address] [id number] Edita Suárez Self - patient is the insured 2 Medical (General) History Medical History History ICD Code Other spondylosis, lumbar region M47.896 Spinal stenosis, lumbosacral region M48. 07 Chronic pain G89.29 Other acute kidney failure N17.8 Vitamin D deficiency E55.9 Basal cell carcinoma C44.91 GERD (gastroesophageal reflux disease) K 21.9 Cellulitis L03.90 Osteoarthritis M19.90 Hypercholesterolemia E78.00 Asthma J45.909 Benign hypertension I10 Hypothyroidism E03.9 Unspecified open wound, left lower leg, initial encounter S81.656M Surgical History Surgery Date(Month/Year) hysterectomy Colonoscopy X2
--- OUTSIDE RECORDS SUMMARY | 2025-04-24 09:45 | XMS_ITS | Encounter Summary ---
Author Organization [facility] Address [address] [place] [address] [place] [address] Phone Care Team Providers Care Sorter/Assay Tech Name Role Phone Rito Yousif DO Unavailable Ed Taylor MD Unavailable [phone] Miguel Baker MD Unavailable [email or web address] Amina Metz MD Unavailable [phone] Milla Villagran MD Unavailable [phone] Rito Yousif DO Primary Care Provider [phone] Rito Yousif DO Primary Care Provider [phone] Encounter Details Date Type Department Care Team (Late st Contact Info) Description 09/08/2020 Procedure Pass [facility], Ct Scan - [address] [address] Social History Tobacco Use Types Packs/Day Years [...] on filedocumented in this encounter Care Teams Sorter/Assay Tech Relationship Specialty Start Date End Date Rito YousifDO PCP - General Internal Medicine 06/16/17 03/09/25 MagueRito lloydDO [address] [place] [address] PCP - General Internal Medicine 03/10/25 Magueprema Rito AbdiDO Historical LMR Provider 05/23/17 dE Taylor MD [address] [place] [address] Historical LMR Provider 05/23/17 08/14/21 Miguel Baker MD [email or web address] Historical LMR Provider 05/23/17 Amina Metz MD [address] [place] [address] Historical LMR Provider 05/23/17 Milla Villagran MD [address] [place] [address] Orthopedics & Sports Medicine, [facility] [place] [address] Historical LMR Provider 05/23/17 documented as of this encounter Additional Source Comments The information contained in this document represents components of the legal health record. It is not the complete legal health record.[facility]
--- OUTSIDE RECORDS SUMMARY | 2025-04-24 09:45 | XMS_ITS | Encounter Summary ---
Author Organization [facility] Address [address] [place] [address] [address] [place] [address] Phone Care Team Providers Care Phd Internship Name Role Phone Rito Yousif DO Unavailable Miguel Baker MD Unavailable [email or web address] Amina Metz MD Unavailable [phone] Milla Villagran MD Unavailable [phone] Rito Yousif DO Primary Care Provider [phone] Rito Yousif DO Primary Care Provider [phone] Encounter Details Date Type Department Care Team (Late st Contact Info) Description 04/03/2023 Procedure Pass [address] [address] Social History Tobacco Use Types Packs/Day Years [...] on filedocumented in this encounter Care Teams Phd Internship Relationship Specialty Start Date End Date Rito Yousif DO PCP - General Internal Medicine 06/16/17 03/09/25 Rito Yousif DO [address] [place] [address] PCP - General Internal Medicine 03/10/25 Rito Yousif DO Historical LMR Provider 05/23/17 Miguel Baker MD [email or web address] Historical LMR Provider 05/23/17 Amina Metz MD [address] [place] [address] Historical LMR Provider 05/23/17 Milla Villagran MD [address] [place] [address] Orthopedics & Sports Medicine, [facility] [place] [address] [email or web address] Historical LMR Provider 05/23/17 documented as of this encounter Additional Source Comments The information contained in this document represents components of the legal health record. It is not the complete legal health record.[facility]
--- OUTSIDE RECORDS SUMMARY | 2025-04-24 09:45 | XMS_ITS | Encounter Summary ---
Author Organization [facility] Address [address] [place] [address] [place] [address] Phone Care Team Providers Care Harvest Manager Name Role Phone Rito Yousif DO Unavailable Ed Taylor MD Unavailable [phone] Miguel Baker MD Unavailable [email or web address] Amina Metz MD Unavailable [phone] Milla Villagran MD Unavailable [phone] Rito Yousif DO Primary Care Provider [phone] Rito Yousif DO Primary Care Provider [phone] Encounter Details Date Type Department Care Team (Late st Contact Info) Description 12/14/2020 Ancillary Orders Virtual Department [address] [place] [address] Rito Yousif DO [address] [place] [address] [email or web address] Breast [...] unspecified documented in this encounter Care Teams Harvest Manager Relationship Specialty Start Date End Date Bigprema Rito AbdiDO PCP - General Internal Medicine 06/16/17 03/09/25 Rito Yousfi JinDO [address] [place] [address] PCP - General Internal Medicine 03/10/25 Rito Yousif DO Historical LMR Provider 05/23/17 Ed Taylor MD [address] [place] [address] Historical LMR Provider 05/23/17 08/14/21 Miguel Baker MD [email or web address] Historical LMR Provider 05/23/17 Amina Metz MD [address] [place] [address] Historical LMR Provider 05/23/17 Milla Villagran MD [address] [place] [address] Orthopedics & Sports Medicine, [facility] [place] [address] Historical LMR Provider 05/23/17 documented as of this encounter Additional Source Comments The information contained in this document represents components of the legal health record. It is not the complete legal health record.[facility]
--- OUTSIDE RECORDS SUMMARY | 2025-04-24 09:45 | XMS_ITS | Encounter Summary ---
Author Organization [facility] Address [address] [place] [address] [place] [address] Phone Care Team Providers Care Medical Physics Teacher Name Role Phone Rito Yousif DO Unavailable Ed Taylor MD Unavailable [phone] Miguel Baker MD Unavailable [email or web address] Amina Metz MD Unavailable [phone] Milla Villagran MD Unavailable [phone] Rito Yousif DO Primary Care Provider [phone] Rito Yousif DO Primary Care Provider [phone] Encounter Details Date Type Department Care Team (Late st Contact Info) Description 12/14/2020 Procedure Pass [address] [address] Social History Tobacco Use Types Packs/Day Years [...] on filedocumented in this encounter Care Teams Medical Physics Teacher Relationship Specialty Start Date End Date Rito YousifDO PCP - General Internal Medicine 06/16/17 03/09/25 MagueRito lloydDO [address] [facility] [place] [address] PCP - General Internal Medicine 03/10/25 Magueprema Rito AbdiDO Historical LMR Provider 05/23/17 Ed Taylor MD [address] [place] [address] Historical LMR Provider 05/23/17 08/14/21 Miguel Baker MD [email or web address] Historical LMR Provider 05/23/17 Amina Metz MD [address] [place] [address] Historical LMR Provider 05/23/17 Milla Villagran MD [address] [place] [address] Orthopedics & Sports Medicine, [facility] [place] [address] Historical LMR Provider 05/23/17 documented as of this encounter Additional Source Comments The information contained in this document represents components of the legal health record. It is not the complete legal health record.[facility]
== END 2025-04-24 08:34 | disposition home or self-care (01) ==
LOC: HO.MAMMO 08:33
PROVIDERS: PCP Internal Medicine; Visit Provider Internal Medicine
DX: Z12.31 Encounter for screening mammogram for malignant neoplasm of breast (principal)
CPT/HCPCS: 77063; 77067

== ENCOUNTER → 2025-04-24 08:45 | Outpatient (BNV) | payer MEDICARE, OTHER, SELFPAY | PROVIDERS: PCP Internal Medicine; Visit Provider Internal Medicine | DX: Z12.31 Encounter for screening mammogram for malignant neoplasm of breast (principal) | CPT/HCPCS: 77063; 77067 ==

== ENCOUNTER 2025-06-19 09:21 | Outpatient (REF) | payer MEDICARE, OTHER, SELFPAY ==
--- OUTSIDE RECORDS SUMMARY | 2024-08-14 04:30 | XMS_ITS ---
[facility] Address [address] [facility] [place] [address] Care Team Providers Care Diagnostic Cardiac Sonographer Name Role Phone Rito Yousif MD Primary Care Provider Carmenza Llanes Unavailable [phone] Encounters Encounter Location Date Provider Diagnosis Surgery [facility] ([facility]) [address] [place] [id number] 08/14/2024 Carmenza Bronson Plan Of Treatment No Information Progress Notes * Niki SUÁREZCathyOB:1955 (70 yo F)Acc No.[id number]:08/14/2024 Patient: Edita PHAN Provider: Enoch Bronson DPM :1955 A ge:69 Y S ex:Female Date:08/14/2024 [address] Pcp:Rito Yousif MD * Images: * The named appointment provid er may or may not be the originator of this progress note, and it is not deemed complete until electronically signed by the appointment provider. Sign off status: Pending * Provider: Enoch Bronson DPM Date: 0 08/14/2024 Generated for Twila rizo/All/eTransmitting on: 08/19/2024 10:39 AM EST
--- OUTSIDE RECORDS SUMMARY | 2024-08-20 05:00 | XMS_ITS ---
Author Organization [facility] Address [address] [place] [address] Care Team Providers Care Shellfish Processing Machine Tender Name Role Phone Rito Yousif MD Primary Care Provider Carmenza Llanes Unavailable [phone] Allergies Allergen (clinical drug ingredient) Drug/Non Drug Allergy documented on EMR Reaction Allergy Type Onset Date Status Substance with 5-xpadzwr-1-methylgluta ryl-coenzyme A reductase inhibitor mechanism of action (substance) Statins Unknown Drug Allergy Active REASON FOR VISIT Dr Landin Day Medications Medication SIG (Take, Route, Frequency, Duration) Notes Start Date End Date Status Synthroid 125 MCG Oral; Duration: 90 Days Active Montelukast Sodium 10 MG Oral; Duration: 90 Days Active traMADol HCl 50 MG TAKE 1 TO 2 TABLETS BY MOUTH EVERY 6 HOURS NEEDED Oral; Duration: 15 Days Active Esomeprazole Magnesium 40 MG Oral; Duration: 90 Days Not- Taking ProAir RespiClick 108 (90 Base) MCG/ACT Inhalation; Duration: 17 Days Active Gabapentin 600 MG Oral; Duration: 90 Days Active amLODIPine Besylate 5 MG Oral; Duration: 90 Days Active Encounters Encounter Location Date Provider Diagnosis [facility] [address] [place] [address] 08/20/2024 Carmenza Bronson Plan Of Treatment No Information Progress Notes * Victorino SUÁREZOB:1955 (70 yo F)Acc No.[id number]:08/20/2024 Progress Notes Patient: Niki PHANh Provider: Enoch Bronson DPM :1955 A ge:69 Y S ex:Female Date:08/20/2024 Address:[address], [place], [place] Pcp:Rito Yousif MD Subjective: * Chief Complaints: * [address] Urvashi Pickering. * Medical History: A rthritis, Asthma, Back,Hip,and Knee pain, Broken bones, Cataracts, Covid-19, Headaches/Migraines, Hiatal hernia, High blood pressure, Lyme disease, Numbness, Raynauds disease, Reflux ( GERD), Sciatica, Chronic sinusitis, Thyroid, Measles, Mumps, Chicken pox, Joint implants/screws, Osteoporosis. * Surgical History: F usion L4-L5 09/2021, cataract surgery 2013, Right shoulder repair 01/2020, total Hysterectomy 2001, 1st MPJ Fusion Right, Hammertoe Repair Right 2nd Toe 08/14/24. * Medications: T aking amLODIPine Besylate 5 MG Tablet Oral , Taking Gabapentin 600 MG Tablet Oral , Taking Synthroid 125 MCG Tablet Oral , Taking traMADol HCl 50 MG Tablet TAKE 1 TO 2 TABLETS BY MOUTH EVERY 6 HOURS NEEDED Oral , Taking Montelukast Sodium 10 MG Tablet Oral , Taking ProAir RespiClick 108 (90 Base) MCG/ACT Aerosol Powder Breath Activated Inhalation , Not-Taking/PRN Esomeprazole Magnesium 40 MG Capsule Delayed Release Oral * Allergies: S tatins. Objective: * Vitals: Assessment: Plan: * Treatment: * Images: * The named appointment provid er may or may not be the originator of this progress note, and it is not deemed complete until electronically signed by the appointment provider. Sign off status: Pending * Provider: Enoch Bronson DPM Date: 0 08/20/2024 Generated for Twila rizo/All/Bellaitting on: 1 08/19/2024 10:39 AM EST
--- NOTE | ~2025-06-19 | MM_ITS ---
EXAMINATION: DXA BONE DENSITY AXIAL HISTORY: MENOPAUSAL STATE TECHNIQUE: Departing Dual energy absorptiometry (DEXA) of the lumbar spine, total left hip, and femoral neck was performed. COMPARISON: None FINDINGS: The bone mineral density of the lumbar spine is 1.193 g/cm2, corresponding to a T-score of -0.1, and a Z-score of 1.6. This is indicative of normal bone mineral density. The bone mineral density of the left total hip is 0.913 g/cm2, corresponding to a T-score of -0.7, and a Z-score of 0.6. This is indicative of normal bone mineral density. The bone mineral density of the left femoral neck is 0.874 g/cm2, corresponding to a T-score of -1.2, and a Z-score of 0.4. This is indicative of osteopenia. FRACTURE RISK: The FRAX index suggests a ten year probability of major osteoporotic fracture of 9%, and of hip fracture 1%. MM/XR DEXA axial skeleton IMPRESSION: Based on bone mineral density, and according to World Health Organization (WHO) criteria, the diagnosis is consistent with osteopenia based on lowest T score of -1.2 and the left femoral neck. Statistically, 68% of repeat scans fall within 1 SD (+/- 0.010 g/cm2 for AP spine L1-L4) and 1 SD (+/- 0.012 g/cm2 for femur total) FRAX is a trademark of the [employer], a World Health Organization (WHO) Collaborating Center. Electronically signed by: Pilar Izquierdo MD 06/19/2025 09:55 AM [facility]
--- OUTSIDE RECORDS SUMMARY | 2025-06-19 10:39 | XMS_ITS | Data Portability ---
Author Organization [facility], Telehealth Patient Home Address [address] [place] [address] Assessment Encounter Date Assessment Date Assessment LastModified by Organization Details LastModified Time 03/25/2025 03/25/2025 Patient presente d to office today for their Medicare Annual Wellness Visit. Education was provided on healthy nutrition, including a diet rich in fruits and vegetables, minimizing simple carbohydrates, salt, and saturated fats. Encouraged regular cardiovascular exercise such as walking at least 30 minutes daily, 5 times per week. Emphasized preventive health measures and educated pt on fall prevention and community-based lifestyle interventions to help reduce health risks and promote healthy living. Not available 03/11/2025 15:22:33 Plan of Treatment Reminders Order Date Submit Date Provider Last Modified By Organization Details Last Modified Time Details Appointments None recorded. Lab lipid panel, blood 2024 025 [facility], [address] [place] [address], [address], 11:26:33 CBC w/ auto diff 2024 025 [facility], [address] [place] [address], [id number], 5 11:26:33 CMP, serum or plasma 2024 025 [facility], [address] [place] [address], [address], 5 11:26:32 TSH + free T4, serum 2024 025 [facility], [address] [place] [address], [address], 5 09:47:18 iron + TIBC + ferritin, serum 2024 025 [facility], [address] [place] [address], [address], 5 09:47:18 vitamin D, 25-hydroxy , total, serum 2024 025 [facility], [address] [place] [address], [address], 5 11:07:44 vitamin B12, serum 2024 025 [facility], [address] [place] [address], [address], 5 09:47:18 culture, wound - L Lower Leg 2024 025 [facility], [address] [place] [address], [address], 5 12:38:41 urinalysis complete, reflex culture 2024 025 [facility], [address] [place] [address], [address], 5 19:16:46 urinalysis , dipstick 2024 025 [facility], [address], [address], [place], [address], 15:04:50 Referral wound care referral - non healing wound from puncture of her watering can (Tdap up to date), no improvemen t on abx, possibly need debrided 2024 025 [email or web address] [facility], [address], [place], [address], 5 08:53:25 Procedures None recorded. Surgeries None recorded. Imaging bone density 2024 025 [email or web address] [facility], [address], [place], [address], 17:06:10 Medication Orders cephalexin 500 mg capsule 2024 025 [id number], [address], [place], [id number], 5 05:01:23 prednisone 10 mg tablet 2024 025 [facility] #[id number], [address], [place], [id number], 5 05:02:12 cephalexin 500 mg capsule 2024 025 [facility]580[facility], [address], [place], [id number], 5 05:01:23 sulfametho xazole 800 mg-trimeth oprim 160 mg tablet 2024 025 [facility]31061, [address], [place], [id number], 5 14:52:04 Patient TargetsNo targets recorded. Patient Instructions Encounter Date Encounter Id Patient Instructions Last Modified By Organization Details Last Modified Time 03/25/2025 [id number] pulse oximetry* JAVIER Not available 03/25/2025 09:48:53 advance care planning: care instructions [email or web address] Not available 03/25/2025 09:38:59 Discussed and explained advance directives such as standard forms to the . Face to face discussion lasted for a duration of ___ minutes. Not available 03/11/2025 15:22:33 Reason for Referral non healing wound from punct ure of her watering can (Tdap up to date), no improvement on abx, possibly need debrided Referring Physician: Zuleyka Mcfarland, Internal Medicine, Encounter Date: 03/17/2025 Results Created Date Observation Date Name Description Value Unit Range Abnormal Flag Note LastModifiedBy Organization Detail LastModifiedTime 03/25/2003/25/2025 pulse oxime try* Result 98 Not Available [facility] [address], [place], [address], 03/12/2025 08:54:48 03/11/20 25 03/10/2025 XR, tibia + fibul a, 2 view No observ ation record ed. [email or web address] [facility] [address], [place], [address], 03/11/2025 12:22:31 04/28/2004/24/2025 MAMMO , scree colin, digit al, bilat eral No observ ation record ed. [email or web address] [facility] [address] [place], [address], 04/28/2025 14:18:29 Result Notes None recorded. Problems Name Problem SNOMED Code Status Onset Date Resolution Date Notes Provider Name and Address Organization Details Recorded Time Hyperten sive disorder 02197112 Active 2017 Not Available [facility] 17:21:24 Hypothyr oidism 03414408 Active 2017 Not Available [facility] 17:21:24 Asthma 096365559 Active 2017 Not Available [facility] 17:21:24 History of partial resectio n of colon 300553343 Completed 201706/26/2018 Removal Reason: adenoma Rito Yousif DO [address] [facility], [place], [address], [facility] 8 10:13:14 Hypercho lesterol emia 59598680 Active 2019 Not Available [facility] 17:21:24 Osteoart hritis 190692963 Active 2020 Noa szymanski [facility] 4 08:21:50 Lumbar spondylo sis 324633702 [facility] 2021 [facility] 08:21:50 Spinal stenosis of lumbar region 78181672 Active 2021 [facility] 4 08:21:50 Chronic pain 12093134 Active 2021 [facility] 4 08:21:50 Renal insuffic iency 888769885 Active 2022 [facility] 4 08:21:50 Dog bite of hand 938933132 Active 2022 [facility] 4 08:21:55 Synovial cyst of left knee 4503615269 34462 Active 2022 [facility] 4 08:21:55 Pain of left breast 5501427958 Active 2022 [facility] 4 08:21:55 Vitamin D deficien cy 45273134 Active 2022 [facility] 4 08:21:50 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 6636998965 91822 Active 2022 [facility] 4 08:21:50 Basal cell carcinom a of skin 949086986 Active 2023 [facility] 4 08:21:50 Basal cell carcinom a of skin 388797017 Active 2023 [facility] 4 08:21:50 Gastroes ophageal reflux disease 611704979 Active 2023 [facility] 4 08:21:50 Paronych ia of toe of right foot 5146738340 1194554 Active 2024 Rito Yousif DO [address] [place] [address], [address], [facility] 5 13:34:53 Wound cellulit is 243899063 Active 2024 MARIA DEL CARMEN HOFFMAN [address] [place] [address], [address], [facility] 5 14:25:49 Pain in left lower limb 364929473 Active 2024 MARIA DEL CARMEN HOFFMAN [address] [place] [address], [address], [facility] 5 16:22:05 Cellulit is of left lower limb 4220765784 1232691 Active 2024 MARIA DEL CARMEN HOFFMAN [address] [place] [address], [address], [facility] 14:15:12 Fatigue 44559734 Active 2024 Rito Yousif DO [address] [place] [address], [address], [facility] 09:40:29 Postmeno pausal osteopen ia 864597170 Active 2024 Rito Yousif DO [address] [place] [address], [address], [facility] 17:06:36 Problem Notes None recorded. Procedures Surgical History Date Name Laterality Status Provider Name and Address Organization Details Recorded Time 03/17/20 25 WOUND CARE completed MARIA DEL CARMEN HOFFMAN [address] [place] [address], [address], [facility] 03/17/2025 14:21:15 07/16/20 20 Colonoscopy completed Rito Yousif DO [address] [place] [address], [address], [facility] 07/16/2020 16:32:57 11/12/19 15 Colonoscopy completed Rito Yousif DO [address] [place] [address], [address], [facility] 07/16/2020 16:32:36 Total Hysterectomy completed Rito Yousif, DO [address] [place], [address], [facility] 01/18/2022 09:00:06 Imaging Results None recorded. Procedure Notes None recorded. Medical Equipment None Reported. Allergies Allergen ID Allergen Name Allergen Category Reaction Reaction Severity Criticality Documentation Date Start Date Code Code System Note Provider Name and Address Organization Details Recorded Time 2636 Product containin g 3-hydroxy -3-methyl glutaryl- coenzyme A reductase inhibitor (product) medicatio n Not available Not available Not available 08/03/2018 20225 009 SNKIRSTIE Caldwell [facility] 8 13:58:02 Medications Name Sig Start Date Stop Date Status Note LastModified by Organization Details LastModified Time Prescriptio n - Prior Authorizati on Request active Not Available Not Available N ot Available prednisone 10 mg tablet Take 1 tablet every day by oral route as directed for 14 days. 04/02 completed Not Available Not Available Not Available gabapentin 600 mg tablet Take two tablets once a day. active Not Available Not Available No t Available doxycycline hyclate 100 mg capsule TAKE 1 CAPSULE BY MOUTH TWICE DAILY FOR 10 DAYS 03/25 completed Not Available Not Available Not Available ipratropium 0.5 mg-albutero l 3 mg (2.5 mg base)/3 mL nebulizatio n soln Inhale 3 mL every 4-6 hours by inhalatio n route as needed for 90 days. active Not Available Not Available No t Available azithromyci n 250 mg tablet TAKE 2 TABLETS (500 MG) BY ORAL ROUTE ONCE DAILY FOR 1 DAY THEN 1 TABLET (250 MG) BY ORAL ROUTE ONCE DAILY FOR 4 DAYS 12/01 completed Not Available Not Available Not Available tizanidine 4 mg tablet TAKE 1 TABLET BY MOUTH THREE TIMES DAILY NEEDED FOR SPASM 01/12 completed Not Available Not Available Not Available Synthroid 125 mcg tablet TAKE 1 TABLET DAILY active Not Available Not Available No t Available prednisone 20 mg tablet 12/31 completed Not Available Not Available Not Available Tylenol Arthritis Pain 650 mg tablet,exte nded release Take 1 tablet 4 times a day by oral route. 07/08 completed Not Available Not Available Not Available topiramate 25 mg tablet Take 1 tablet twice a day by oral route for 30 days. 07/08 completed Not Available Not Available Not Available amlodipine 5 mg tablet TAKE 1 TABLET DAILY active Not Available Not Available No t Available ciprofloxac in 500 mg tablet TAKE 1 TABLET BY MOUTH EVERY 12 HOURS active Not Available Not Available No t Available sulfamethox azole 800 mg-trimetho prim 160 mg tablet TAKE 1 TABLET BY MOUTH EVERY 12 HOURS FOR 7 DAYS active Not Available Not Available No t Available peg-electro lyte solution 420 gram oral solution 07/08 completed Not Available Not Available Not Available tramadol 50 mg tablet TAKE 1 TO 2 TABLETS BY MOUTH EVERY 6 HOURS NEEDED 2024 active Not Available Not Available Not Avai lable oxycodone-a cetaminophe n 5 mg-325 mg tablet TK1-2 TABLETS BY MOUTH EVERY 4-6 HOURS NEEDED 09/16 completed Not Available Not Available Not Available alprazolam 0.5 mg tablet TAKE 1 TABLET BY MOUTH APPROXIMA TELY 1 HOUR PRIOR TO PROCEDURE FOR PREPROCED URAL ANXIETY 02/22 completed Not Available Not Available Not Available Guaiatussin AC 10 mg-100 mg/5 mL oral liquid 01/02 completed Not Available Not Available Not Available cephalexin 500 mg capsule Take 1 capsule every 6 hours by oral route as directed for 10 days. 03/24 completed Not Available Not Available Not Available pantoprazol e 40 mg tablet,narinder yed release Take 1 tablet every day by oral route for 90 days. 12/31 completed Not Available Not Available Not Available esomeprazol e magnesium 40 mg capsule,del ayed release Take 1 capsule every day by oral route. 03/25 completed Not Available Not Available Not Available montelukast 10 mg tablet TAKE 1 TABLET DAILY 2024 active Not Available Not Available Not Avai lable mupirocin 2 % topical ointment APPLY TO RIGHT FOOT INCISION EVERY OTHER DAY FOR 30 DAYS 03/25 completed Not Available Not Available Not Available levofloxaci n 500 mg tablet 01/02 completed Not Available Not Available Not Available methylpredn isolone 4 mg tablets in a dose pack TAKE FOR 6 DAYS INSTRUCTE D ON PACKAGE LABELING 12/01 completed Not Available Not Available Not Available doxycycline hyclate 100 mg tablet TAKE 1 TABLET BY MOUTH TWICE DAILY FOR 7 DAYS 09/16 completed Not Available Not Available Not Available naproxen 500 mg tablet 07/08 completed Not Available Not Available Not Available amoxicillin 875 mg-potassiu m clavulanate 125 mg tablet TAKE 1 TABLET BY MOUTH TWICE DAILY UNTIL ALL TAKEN WITH FOOD YOUGURT PROBIOTIC S 09/30 completed Not Available Not Available Not Available esomeprazol e magnesium 20 mg capsule,del ayed release Take 2 capsules every day by oral route for 90 days. 07/20 completed Not Available Not Available Not Available oxycodone 5 mg tablet 01/12 completed Not Available Not Available Not Available calcium active Not Available Not Avail able Not Available Fish Oil active Not Available Not Avai lable Not Available ProAir HFA 90 mcg/actuati on aerosol inhaler Inhale 2 puffs every 4 hours by inhalatio n route as needed. 07/08 completed Not Available Not Available Not Available NAC 600 mg capsule Take 1 capsule twice a day by oral route. active Not Available Not Available No t Available diclofenac 1 % topical gel Use as needed. active Not Available Not Available No t Available Dexilant 60 mg capsule, delayed release Take 1 capsule every day by oral route for 90 days. 2024 active Not Available Not Available Not Avai lable Dexilant 30 mg capsule, delayed release Take one tablet daily. 07/02 completed Not Available Not Available Not Available ProChamber USE UTD active Not Available Not A vailable Not Available Vitamin D3 50 mcg (2,000 unit) capsule Take 2 capsules by oral route. active Not Available Not Available No t Available ProAir RespiClick 90 mcg/actuati on breath activated USE 2 INHALATIO NS EVERY 4 HOURS active Not Available Not Available No t Available Flucelvax Quad (PF) 60 mcg (15 mcg x 4)/0.5 mL IM syringe 06/26 completed Not Available Not Available Not Available Shingrix (PF) 50 mcg/0.5 mL intramuscul ar suspension, kit ADMINISTE R 0.5ML IN THE MUSCLE DIRECTED 01/12 completed Not Available Not Available Not Available Fluzone Quad (PF) 60 mcg(15 mcgx4)/0.5 mL intramuscul ar syringe 06/26 completed Not Available Not Available Not Available Afluria Qd (36 mos up)(PF)60 mcg (15 mcg x4)/0.5 mL IM syringe 07/02 completed Not Available Not Available Not Available Fluarix Quad (PF) 60 mcg (15 mcg x 4)/0.5 mL IM syringe 07/07 completed Not Available Not Available Not Available BinaxNOW COVID-19 Ag Self Test kit TEST DIRECTED TODAY 09/30 completed Not Available Not Available Not Available Vitals Date Recorded Body height Heart rate Oxygen saturation Oxygen saturation in Arterial blood by Pulse oximetry Systolic And Diastolic Provider Name and Address Organization Details Last Updated DateTime 5 154.94 cm 68 /min 94 % 94 % 138/82 mm[Hg] Noa Walters [facility] 5 14:41:23 Date Recorded Body height Body mass index (BMI) Body weight Heart rate Oxygen saturation Oxygen saturation in Arterial blood by Pulse oximetry Systolic And Diastolic Provider Name and Address Organization Details Last Updated DateTime 5 154.94 cm 28.3 kg/m2 47586.8 6 g 68 /min 98 % 98 % 128/68 mm[Hg] Marquita Mooney [facility] 5 14:02:42 Date Recorded Body height Heart rate Oxygen saturation Oxygen saturation in Arterial blood by Pulse oximetry Systolic And Diastolic Provider Name and Address Organization Details Last Updated DateTime 5 154.94 cm 68 /min 95 % 95 % 138/88 mm[Hg] Noa Walters [facility] 5 15:35:16 Date Recorded Body height Provider Name an d Address Organization Details Last Updated DateTime 03/17/2025 154.94 cm Noa Walters [facility] 03/17/2025 14:00:46 Date Recorded Body height Body mass index (BMI) Body weight Oxygen saturation Oxygen saturation in Arterial blood by Pulse oximetry Heart rate Systolic And Diastolic Provider Name and Address Organization Details Last Updated DateTime 5 154.94 cm 29 kg/m2 80996.0 7 g 98 % 98 % 68 /min 124/82 mm[Hg] Lizzeth Morse [facility] 5 09:20:12 Social History Question Answer Notes LastModified by Organizat ion Details LastModified Time Tobacco Smoking Status Never Smoker Not Available [facility] 06/09/2020 03:36:23 What Is Your Level Of Caffeine Consumption? Moderate 4 Cups Coffee Per Day [id number] Information not available 06/09/2020 What Was The Date Of Your Most Recent Tobacco Screening? 03/25/2025 Information not available 03/25/2025 Sex: Unknown Functional Status Question Answer Note LastModified by Organizat ion Details LastModified Time Do you or have you ever used any other forms of tobacco or nicotine? No [email or web address] Information not available 03/08/2023 What is your level of alcohol consumption? None [id number] Information not available 06/09/2020 What is your exercise level? Occasional [id number] Information not available 06/09/2020 Mental Status None recorded. Family History Nothing Reported. Medical History No medical history recorded. Gynecological HistoryNo gynecological history recorded. Obstetrics History GPAL:G 0 P 0 0 0 0 Immunizations Vaccine Type Date Status Note Provider Nam e and Address Organization Details Recorded Time Influenza, split virus, quadrivalent, preservative 1 completed MARIA DEL CARMEN HOFFMAN [address] [place] [address], [address], [facility] 05/13/2021 17:05:35 Influenza, split virus, quadrivalent, preservative 8 completed [facility] 09/16/2020 09:34:05 Pneumococcal conjugate PCV 13 1 completed Rito Yousif DO [address] [place], [address], [facility] 07/07/2021 07:04:05 Tdap 1 completed [facility] 01/18/2022 09:06:34 influenza, unspecified formulation 2 completed Ariadne Keys [facility] 07/19/2022 09:32:54 Influenza, split virus, quadrivalent, preservative 9 completed Simona szymanski [facility] 09/16/2020 09:34:05 Influenza, split virus, quadrivalent, preservative 0 completed Simona szymanski [facility] 09/16/2020 09:34:05 zoster, unspecified formulation 0 completed Simona szymanski [facility] 09/16/2020 09:34:05 COVID-19 vaccine, vector-nr, rS-ChAdOx1, PF, 0.5 mL 1 completed Lizzeth szymanski [facility] 01/06/2021 16:23:11 COVID-19 vaccine, vector-nr, rS-ChAdOx1, PF, 0.5 mL 1 completed Lizzeth szymanski [facility] 01/06/2021 16:23:21 Past Encounters Encounter ID Performer Location Encounter Start Date Encounter Closed Date Diagnosis/Indication Diagnosis SNOMED-CT Code Diagnosis ICD10 Code Diagnosis IMO Codes [facility] [id number] [facility] [address] [place] [address] 01/02/2018 16:02:11 01/02/2018 17:06:14 Asthma 773316087 J45.909 Hypertensive disorder 38 854369 I10 stable and doing ok Hypothyroidism 51683466 E03.9 due for lab in the fall [id number] Rito Yousif [facility] [address] [place] [address] 06/26/2018 09:49:47 06/26/2018 14:24:16 Adult health examination 012551904 Z00.01 will need fbw Hepatitis C screening 41 4944919 Z11.59 will order Screening for malignant neoplasm of colon 571846293 Z12.11 Asthma 058086421 J45.90 9 is actually doing better annd is stable using NAC supp and has helped Hypertensive disorder 38 074105 I10 stable and doing ok Hypothyroidism 39167204 E03.9 due for lab Thumb join t painful on movement 929061293 M79.641 bilateral pain in thumb joints and is worsening [id number] Rito Yousif [facility] [address] [facility],[place] [address] 08/03/2018 13:48:54 08/03/2018 16:07:03 Asthma 288123602 J45.909 is actually doing better annd is stable using NAC supp and has helped Hypertensive disorder 38 465733 I10 stable and doing ok Hypothyroidism 08823562 E03.9 tsh and t4 are good no= chnge in dose Snoring 73723432 R06.83 refer for sleep eval [id number] Rito Yousif [facility] [address] [facility],[place] [address] 09/04/2018 13:31:05 09/04/2018 14:32:13 Hypertensive disorder 12614328 I10 stable Hypothyroidism 76347355 E03.9 stable Acute asthma 135149236 J 45.901 [id number] Rito Yousif [facility] [address] [facility],[place] [address] 01/29/2019 15:36:25 01/29/2019 16:37:09 Hypertensive disorder 69863088 I10 stable and doing ok Hypothyroidism 19733392 E03.9 tsh and t4 are good no= chnge in dose Asthma 496330129 J45.90 9 is actually doing better and is stable using NAC supp and has helped [id number] Rito Yousif DO [facility] [address],[place] [address] 07/02/2019 10:55:20 07/02/2019 11:34:17 Adult health examination 463880709 Z00.00 well exam and is doing good having gerd breakthrou gh as she is unable to use dexilant told to increase pantoprazo le to bid Active or passive immunization 217893163 Z23 Asthma 153997101 J45.90 9 is actually doing better and is stable using NAC supp and has helped Hypothyroidism 37702435 E03.9 tsh and t4 are good no= chnge in dose, recheck in August Hypertensive disorder 38 249788 I10 stable and doing ok [id number] Rito Yousif DO [facility] [address] [address] 09/17/2019 10:56:34 09/17/2019 11:59:39 Asthma 113978905 J45.909 Acute sinusitis 88378417 J01.90 Hypothyroidism 60481315 E03.9 Hypertensive disorder 38 457682 I10 ELEVATED TODAY [id number] Rito Yousif [facility] [address] [address] 01/01/2020 12:06:58 01/01/2020 13:38:54 Asthma 311562668 J45.909 is actually doing better and is stable using NAC supp and has helped Hypertensive disorder 38 445651 I10 stable and doing ok Hypothyroidism 64172332 E03.9 tsh and t4 are good no= chnge in dose, recheck in August Partial ickness rotator cuff tear 888008708 M75.111 [id number] Rito Yousif [facility] [address] [facility] [address] 07/08/2020 09:44:34 07/08/2020 12:09:01 Asthma 417423953 J45.909 is actually doing better and is stable using NAC supp and has helped Hypothyroidism 17395802 E03.9 tsh and t4 are good no= chnge in dose, recheck in August Hypertensive disorder 38 235924 I10 stable and doing ok Hypercholesterolemia 136 22536 E78.00 improved with diet alone as LDL down to 152 and her HDL is up to 57 Renewal of prescription 321509955 Z76.0 [id number] Rito Yousif [facility] [address] [facility] [address] 09/16/2020 09:16:06 09/16/2020 10:11:04 Pre-surgery evaluation 424645000 Z01.818 the patient's medical history was addressed, all patient's medical conditions are well controlled with no exacerbati ons that require immediate attention the patient had nothing concerning on physical exam based on history and exam, the patient is cleared for surgery [id number] Rito Yousif [facility] [address] [place] [address] 01/12/2021 10:16:27 01/12/2021 11:46:39 Active or passive immunization 462042774 Z23 up to date Adult heal th examination 621549421 Z00.01 well exam and is doing good Asthma 810545754 J45.90 9 is actually doing better and is stable using NAC supp and has helped [id number] Rito Yousif [facility] [address] [place] [address] 07/21/2021 08:23:47 07/21/2021 11:23:37 Hypertensive disorder 25236953 I10 stable and doing ok Hypothyroidism 74907704 E03.9 tsh and t4 are good no= chnge in dose, recheck in August Hypercholesterolemia 136 47373 E78.00 improved with diet alone as LDL down to 152 and her HDL is up to 57 Asthma 169301850 J45.90 9 is actually doing better and is stable using NAC supp and has helped [id number] Rito Yousif [facility] [address] [place] [address] 07/28/2021 09:47:31 07/28/2021 12:23:17 Asthma 979317546 J45.21 continue use of inhaler Acute asthma 622527054 J 45.31 send treatment for asthma exacerbati on and URI [id number] Rito Yousif [facility] [address] [place] [address] 09/06/2021 08:16:46 09/06/2021 14:21:14 Radiculopathy due to lumbar intervertebral disc disorder 6588950500 69700 M51.16 [id number] Rito Yousif [facility] [address] [place] [address] 12/01/2021 16:20:26 12/01/2021 17:13:16 Asthma 805248797 J45.909 is actually doing better and is stable using NAC supp and has helped Spinal shelby nosis of lumbar region 08979292 M48.062 has been undergoing PT and will cont inue but clearly she iw worse now and notably weaker in the left leg and hence she MUST get this eval by neurosurg a nd she agrees Lumbar spondylosis 24483 0009 M47.896 as above [id number] Rito Yousif [facility] [address] [facility] [address] [address] 01/18/2022 08:47:41 01/18/2022 09:41:14 Active or passive immunization 614663268 Z23 up to date Adult [facility] th examination 645186981 Z00.01 well exam and is doing good Asthma 716499635 J45.90 9 is actually doing better and is stable using NAC supp and has helped Depression screening 171 275685 Z13.31 see PHQ2 Advance care planning 71 8076299 Z71.89 done [id number] Rito Yousif [facility] [address] [facility],[place] [address] 07/20/2022 09:29:08 07/20/2022 10:47:04 Hypercholesterolemia 57553210 E78.00 improved with diet alone as LDL down to 152 and her HDL is up to 57 Gastroesop hageal reflux disease 673721798 K21.9 Asthma 985927670 J45.90 9 is actually doing better and is stable using NAC supp and has helpedshe will obtain a covid test and alert me for any change s Hypothyroidism 00278675 E03.9 tsh and t4 are good no= chnge in dose, recheck in August Chronic pain 21191056 G8 9.29 Hypertensive disorder 38 517287 I10 stable and doing ok [id number] Rito Yousif [facility] [address] [facility] [address] [address] 09/30/2022 10:20:37 09/30/2022 16:18:53 Dog bite of hand 655937322 S61.451A already had the abx from the ER Synovial c yst of left knee 1360388161 61622 M71.22 will monitor [id number] Rito Yousif [facility] [address] [facility] [address] [address] 12/13/2022 10:42:35 12/13/2022 11:29:10 Pain of left breast 9562738963 N64.4 [id number] Rito Yousif [facility] [address] [facility] [address],[place] [address] 03/08/2023 09:59:32 03/08/2023 11:13:17 Active or passive immunization 933418756 Z23 up to date Adult heal th examination 713729440 Z00.00 well exam and is doing good Asthma 437470290 J45.90 9 is actually doing better and is stable using NAC supp and has helpedshe will obtain a covid test and alert me for any change s Hypercholesterolemia 136 40897 E78.00 improved with diet alone as LDL down to 152 and her HDL is up to 57 Hypertensive disorder 38 065033 I10 stable and doing ok Hypothyroidism 03498984 E03.9 tsh and t4 are good no= chnge in dose, recheck in August Gastroesop hageal reflux disease 460479094 K21.9 stabkle Vitamin D deficiency 347 11755 E55.9 [id number] Rito Yousif [facility] [address] [facility], [place] [address] 08/09/2023 07:50:30 08/09/2023 13:44:31 Asthma 857083838 J45.909 is actually doing better and is stable using NAC supp and has helped Hypercholesterolemia 136 24415 E78.00 needs to be checked again Hypertensive disorder 38 699498 I10 stable and doing ok Hypothyroidism 30689760 E03.9 tsh and t4 are good no= chnge in dose, recheck in August Vitamin D deficiency 347 26244 E55.9 will need to rechk [id number] Rito Yousif [facility] [address] [facility] [address],[place] [address] 02/23/2024 13:59:05 02/26/2024 08:31:39 Pain of left breast 4479867325 N64.4 will set up with MM Depression screening 171 277493 Z13.31 negative Basal cell carcinoma of skin 646640197 C44.519 [id number] Rito Yousif [facility] [address] [facility],[address] [place] [address] 03/19/2024 09:19:45 03/19/2024 11:25:57 Active or passive immunization 671582020 Z23 up to date Adult heal th examination 390925158 Z00.00 well exam and is doing good except for her back after moving 1 ton of pellets for heat Gastroesop hageal reflux disease 796498362 K21.9 stabkle [id number] Rito Murillo Niac [facility] [address] [facility],[place] [address] 07/23/2024 14:20:29 07/23/2024 15:32:00 Pre-surgery evaluation 647978402 Z01.818 per the ACS (revised) cardiac risk assessment she is in a low risk group and as such will be cleared for her surgery for bunionecto my Asthma 273928882 J45.90 9 is actually doing better and is stable using NAC supp and has helpeduses albut once or twice a week at night Acquired d eformity of toe of right foot 9231178050 48559 M20.61 ok for surgery Gastroesop hageal reflux disease 611021032 K21.00 needs dexilant as she felt best on fi Hypertensive disorder 38 683134 I10 stable and doing ok Hypothyroidism 76946939 E03.9 tsh and t4 are good no= chnge in dose, recheck in [id number] Rito Yousif [facility] [address] [facility] [place] [address] 09/16/2024 10:06:57 09/16/2024 11:05:32 Asthma 467710275 J45.909 is actually doing better and is stable using NAC supp and has helpeduses albut once or twice a week at night Hypercholesterolemia 136 52636 E78.00 doing well and no major issues Hypertensive disorder 38 717431 I10 stable and doing okdenies any major issues Hypothyroidism 99604457 E03.9 tsh and t4 are good no= chnge in dose, recheck in 6 months [id number] Rito Yousif [facility] [address] [facility] [address],[place] [address] 02/11/2025 14:32:27 02/11/2025 15:14:52 Acute urinary tract infection 294950168 N39.0 4962260 [id number] Rito Yousif [facility] [address] [facility] [address] [address] 03/07/2025 13:58:37 03/07/2025 14:47:39 Wound cellulitis 206619481 L03.90 9344772 start on 10 days of cephalexin [id number] Rito Yousif [facility] [address] [facility],[place] [address] 03/25/2025 09:10:27 03/25/2025 12:13:34 Screening for cardiovascular system disease 498887754 Z13.6 well exam and is doing good except for her back after moving 1 ton of pellets for heat Screening for malignant neoplasm of colon 496184144 Z12.11 is utd per pt had been seeing GI and had colonoscop y is prob due int he next few years Screening for osteoporosis 031683895 Z13.820 Screening mammography [address] for sept Depression screening 171 625336 Z13.31 see PHQ2 Hypertensive disorder 38 852339 I10 stable and doing okdenies any major issues Asthma 642575899 J45.90 9 is actually doing better and is stable using NAC supp and has helpeduses albut once or twice a week at night Well adult 877290264 Z00 .00 32544955 well exam and is doing good except for her back after moving 1 ton of pellets for heat Fatigue 27335190 R53.83 67065466 [id number] Rito Yousif [facility] [address] [facility] [address] [address] 03/12/2025 15:27:23 03/12/2025 16:30:18 Wound cellulitis 462001443 L03.90 2399095 wound culture will be send out [id number] Rito Yousif [facility] [address] [facility] [address],[place] [address] 03/17/2025 13:48:43 03/18/2025 08:53:25 Cellulitis of left lower limb 8086210262 3463182 L03.256 [id number] will set up with wound care referral Wound cellulitis 4565220 03 L03.90 no abnormal pathogenre commended f/u with wound care Health Concerns Section Related Observation LastModified by Organization Detai ls LastModified Time None Recorded Concern Status LastModified by Organization Details LastModified Time None Recorded Advance Directives Directive None Recorded Payers Insurance Date Sequence Insurance Name Policy Number Policy Nicole Covered Member ID Nicole Member ID Guarantor Name 03/25/2025 1 [employer] [facility] [place]TRA Edita Suárez [id number] Edita Jignesh Suárez 03/25/2025 2 [facility] - [employer] () Edita Suárez [id number] [facility] Jignesh Suárez 04/18/2025 2 FOR LIFE ( - MEDICARE SUPPLEMENT) Silvio Suárez [id number] [facility] Jose Armando 04/18/2025 1 MEDICARE B-[place]: [facility] [employer] Edita Suárez [id number] Edita Jignesh Suárez Notes Date Note Type Note Provider Name and Address Organization Details Recorded Time 5 text/htm l ROS as noted in the HPI c/o UTI symptoms acute UTI: the patient developed UTI symptoms over the last 24 hrsstarted with burning, frequency and continuedhas been outside gardening, does note sweating due to the heat which could have caused excess moisture in the groin areahas been drinking consistently, which she will cont sending out culture and start bactrim MARIA DEL CARMEN HOFFMAN [address] [place] [address], [address], [facility] 02/11/2025 15:03:21 5 text/htm l ROS as noted in the HPI puncture wound the patient reports that she water in her garden and caught her L leg on her metal water can the patient reports that it has been red, swollen and warmththe patient reports that she tried cleaning and soaking the areahas some swelling around the wound and in the anklehas some muscle pain, concern for muscle damage, but will try abx first to alleviate the swelling around the injury MARIA DEL CARMEN HOFFMAN [address] [place], [address], [facility] 03/07/2025 14:38:59 5 text/htm l ROS as noted in the HPI puncture wound 03/07/25 appt: the patient reports that she water in her garden and caught her L leg on her metal water can the patient reports that it has been red, swollen and warmththe patient reports that she tried cleaning and soaking the areahas some swelling around the wound and in the anklehas some muscle pain, concern for muscle damage, but will try abx first to alleviate the swelling around the injuryher tetanus shot is up-to-date 03/12/25 appt: no major changes, no increased in redness, no streakingstarted on tramadol for the patient resubmitted pred for the inflammationculture taken and the area of redness was markedknows to monitor if redness leaves bounds of marked area or starts streaking no fever, no chillspain is a dull ache XR of her leg didn't show any involvement of the bone MARIA DEL CARMEN HOFFMAN [address] [place], [address], [facility] 03/12/2025 16:26:16 5 text/htm l ROS as noted in the HPI f/u wound care the patient wound doesn't appear to be improving but it has not moved outside the marked area of demarkation the patient denies fever or chills not improving with abx and steroids no abnormal pathogens on culturesetting up with referral to wound care MARIA DEL CARMEN HOFFMAN [address] [place], [address], [facility] 03/17/2025 14:41:44 5 text/htm l Care Management - HypertensionReported by PatientHPIFor self care, patient reportsnot under emotional stress. For severity, patient reportssymptoms are improvinganddoes not interfere with daily activities. For associated symptoms, patient reportsno dizziness,no lightheadedness,no chest pain,no shortness of breath,no palpitations,no edema,no calf muscle cramps,no blurred vision,no confusion,no headaches, andno fatigue. Care Management - AsthmaReported by PatientHPIFor severity, patient reportsimproving,does not interfere with daily activities,does not disturb sleep, anddoes not cause nighttime awakening. For associated symptoms, patient reportsno fever,no fatigue,no irritability,no cough,normal appetite, andno change in productivity. Medicare Annual Wellness VisitReported by PatientSocial/Behavioral HistoryFor diet and nutrition, patient reportshealthy diet. For fracture risk, patient reportsno history of fractures,no recent explained fracture,no sudden unexplained fractures, andno previous musculoskeletal injuries. For physical activity, patient reportsexercises on a regular basis,recent increase in physical activity, andgood physical condition.Mental Status:For depression risk, patient reportsnever feels sad, empty, or tearful,no loss of interest in activities,no significant changes in weight,no sleep disturbances or insomnia,no agitation,no loss of energy,no feelings of worthlessness or guilt,no thoughts of suicide,no history of depression, andno history of mood disorders. For orientation, patient reportsno disorientation to time,no disorientation to date, andno disorientation to place. For concentration and memory, patient reportsno decreased concentrating ability,no memory lapses or loss, anddoes not forget words. For speech/motor difficulties, patient reportsno speech difficulties,no difficulty expressing formulated concepts,no difficulty with fine manipulative tasks,no difficulty writing/copying,no slowed reaction time, anddoes not knock things over when trying to pick them up.Functional AbilityFor hearing, patient reportsno loss of hearing. For vision, patient reportsno vision problems. For activities of daily living, patient reportsable to bathe with limited or no assistance,able to contol urination and bowels,able to dress with limited or no assistance,able to feed self with limited or no assistance,able to get out of chair or bed with limited or no assistance,able to groom with limited or no assistance, andable to toilet with limited or no assistance. For instrumental activities of daily living, patient reportsable to do house work with limited or no assistance,able to grocery shop with limited or no assistance,able to manage medications with limited or no assistance,able to manage money with limited or no assistance,able to prepare meals with limited or no assistance, andable to use the phone with limited or no assistance. For falls risk assessment, patient reportsno frequent falls while walking,no fall in the past year,no fall since last visit, andno dizziness/vertigo. For home safety, patient reportsno unsafe finn hazzards,no unsafe stairs,no unsafe gas appliances,working smoke/co detectors,wears protective head gear for biking/high velocity,use of seatbelts,practicing 'safer sex',no vision or hearing loss while driving,no fire arms,has hand bars in the bathroom/shower, andgood lighting in the home.ROS as noted in the HPI here for her mwv doing ok except for the puncture woundof her lef lower leghas undergone debridement last friand is on cephalex seen by nurse and will be seen fri [facility] the wound although sore is healingusing the tramadol for painotherwise has been doing well Rito Yousif, DO [address] [facility], [place], [address], [facility] 03/25/2025 09:42:54 OBGyn Episode No OBEpisode recorded.
--- OUTSIDE RECORDS SUMMARY | 2025-06-19 10:39 | XMS_ITS | Patient Health Record ---
Author Organization [facility] nataly GardnerVenancio Address [address] [facility] [place] [address] Care Team Providers Care Nature Photographer Name Role Phone Rito Yousif MD Primary Care Provider Carmenza Llanes Unavailable [phone] Allergies Allergen (clinical drug ingredient) Drug/Non Drug Allergy documented on EMR Reaction Allergy Type Onset Date Status Substance with 0-iihorrv-9-methylgluta ryl-coenzyme A reductase inhibitor mechanism of action [...] Status Risk Notes Problem Acquired hallux valgus (21623040) Hallux valgus (acquired), left foot (M20.12) Active confirmed Problem Acquired hallux valgus (45344962) Hallux valgus (acquired), right foot (M20.11) Active confirmed Problem Acquired hammer toe of right foot (438449588186130 5) Other hammer toe(s) (acquired), right foot (M20.41) Active confirmed Problem Acquired hammer toe of left foot (846151551969934 3) Other hammer toe(s) (acquired), left foot (M20.42) Active confirmed Problem Acquired hallux rigidus (8326857) Hallux rigidus, right foot (M20.21) Active confirmed Problem Essential hypertension (35326903) Essential hypertension (I10) Active confirmed Vital Signs Blood pressure diastolic 80 mm Hg 11/06/2024 Height 5ft1in in 11/06/2024 Blood pressure systolic 130 mm Hg 11/06/2024 Weight 150 lbs 11/06/2024 BMI 28.34 kg/m2 11/06/2024 Encounters Encounter Location Date Provider Diagnosis [facility] ([facility] [address] [place] [address] 08/14/2024 Carmenza Bronson [facility] [address] [place] [address] 07/24/2024 Carmenza Bronson Hallux rigidus, righ t foot M20.21 ; Pain in right ankle and joints of right foot M25.571 ; Bursitis of right foot M77.51 ; Hallux valgus (acquired), right foot M20.11 and Other hammer toe(s) (acquired), right foot M20.41 [facility] [address] [address] 08/19/2024 Carmenza Perica Hallux rigidus, righ t foot M20.21 ; Other hammer toe(s) (acquired), right foot M20.41 and Local edema R60.[address] [address] 08/28/2024 Carmenza Perica Hallux rigidus, righ t foot M20.21 ; Other hammer toe(s) (acquired), right foot M20.41 ; Local edema R60.0 and Dehiscence of operative wound, initial encounter T81.31XA [address] [address] 09/04/2024 Carmenza Perica Hallux rigidus, righ t foot M20.21 ; Other hammer toe(s) (acquired), right foot M20.41 ; Local edema R60.0 and Allergic dermatitis L23.[address] [address] 09/10/2024 Carmenza Perica Hallux rigidus, righ t foot M20.21 ; Other hammer toe(s) (acquired), right foot M20.41 ; Local edema R60.0 ; Allergic dermatitis L23.9 and Dehiscence of operative wound, initial encounter T81.31XA [address] [address] 09/17/2024 Carmenza Perica Hallux rigidus, righ t foot M20.21 ; Other hammer toe(s) (acquired), right foot M20.41 ; Local edema R60.0 ; Allergic dermatitis L23.9 and Dehiscence of operative wound, subsequent encounter T81.31XD [address] [address] 10/01/2024 Carmenza Perica Hallux rigidus, righ t foot M20.21 ; Other hammer toe(s) (acquired), right foot M20.41 ; Dehiscence of operative wound, subsequent encounter T81.31XD and Postoperative visit Z48.[address] [address] 11/06/2024 Carmenza Bronson Hallux rigidus, righ t foot M20.21 ; Postoperative visit Z48.89 ; Other hammer toe(s) (acquired), right foot M20.41 and Ingrown nail L60.0 [facility] [address] [place] [address] 08/15/2024 Carmenza Bronson [facility] [address] [address] 08/15/2024 [facility] [address] [place] [address] 08/28/2024 Carmenza Bronson Assessments Encounter Date Diagnosis [...] Date Coverage End Date Medicare National Govt [facility] [address] [place] [address] [id number] Edita Suárez Self - patient is the insured [employer] [address] [place] [address] [id number] Silvio Suárez Spouse - patient is the [...]
--- OUTSIDE RECORDS SUMMARY | 2025-06-19 10:40 | XMS_ITS | Patient Health Record ---
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 Name Role Phone Rito Yousif DO Primary Care Provider UnavailDesmond Nettles Unavailable [phone] Zuleyka Munroe Unavailable Unavailable Nafisa Persaud Unavailable [phone] Allergies Allergen (clinical drug ingredient) Drug/Non Drug Allergy documented on EMR Reaction Allergy Type Onset Date Status adhesive (uncoded) Unknown Allergy A ctive Substance with 5-fsrpxrw-3-methylgluta ryl-coenzyme A reductase inhibitor mechanism of action (substance) Statins Unknown Drug Allergy Active Reason For Referral No Information Medications Medication SIG (Take, Route, Frequency, Duration) Notes Start Date End Date Status Cephalexin 500 MG 1 capsule Orally lore ry 6 hrs Not-Taking predniSONE 10 MG 1 tablet with food o r milk Orally Once a day Active Nac 600 600 MG 1 capsule Orally Onc e a day Active Montelukast Sodium 10 MG 1 tablet Orally Once a day Active Ipratropium-Albuterol 0.5-2.5 (3) MG/3ML 3 mL as needed Inhalation every 6 hrs Active Gabapentin 600 MG 1 tablet Orally Once a day Active Fish Oil Active Esomeprazole Magnesium 40 MG 1 capsule 1/2 to 1 hour before morning meal Orally Once a day Active Vitamin D3 50 MCG (2000 UT) 1 capsule Orally Once a day Active Dexilant 60 MG 1 capsule 1/2 to 1 h our before morning meal Orally Once a day Active traMADol HCl 50 MG 1 tablet as needed Orally Once a day Active Calcium Active Synthroid 125 MCG 1 tablet in the morn ing on an empty stomach Orally Once a day Active amLODIPine Besylate 5 MG 1 tablet Orally Once a day Active ProAir RespiClick 108 (90 Base) MCG/ACT 1 puff as needed Inhalation every 4 hrs Active Social History Tobacco Use: Social History [...] Risk Notes Problem Lumbosacral spondylosis without myelopathy (28153677) Other spondylosis, lumbar region (M47.896) Active confirmed Problem Open wound of left lower leg (87043046357091484) Unspecified open wound, left lower leg, subsequent encounter (S81.802D) Active confirmed Problem Vitamin D deficiency (87322391) Vitamin D deficiency (E55.9) Active confirmed Problem Hypercholesterolemia (88553708) Hypercholesterolemia (E78.00) Active confirmed Problem Gastroesophageal reflux disease (243510939) GERD (gastroesophageal reflux disease) (K21.9) Active confirmed Problem Asthma (618394376) Asthma (J45.909) Active conf irmed Problem Chronic pain (03258787) Chronic pain (G89.29) Active confirmed Problem Osteoarthritis (618412345) Osteoarthritis (M19.90) Active confirmed Problem Hypothyroidism (53452069) Hypothyroidism (E03.9) Active confirmed Problem Basal cell carcinoma (0660521) Basal cell carcinoma (C44.91) Active confirmed Problem Benign hypertension (48426136) Benign hypertension (I10) Active confirmed Vital Signs Heart Rate 66 /min 05/02/2025 Temperature 97.5 degrees Fahrenheit 05/02/2025 Respiratory Rate 16 /min 05/02/2025 Height-cm 154.94 cm 05/02/2025 Oximetry 96 % 05/02/2025 Blood pressure diastolic 64 mm Hg 05/02/2025 Weight-kg 68.04 kg 05/02/2025 Height 61 in 05/02/2025 Blood pressure systolic 110 mm Hg 05/02/2025 Weight 150 lbs 05/02/2025 BMI 28.34 kg/m2 05/02/2025 Encounters Encounter Location Date Provider Diagnosis [address] [address] 03/21/2025 Desmond Long Unspecified open wou nd, left lower leg, initial encounter S81.802A ; Hypercholesterolemia E78.00 and Benign hypertension I10 [address] [address] 03/24/2025 Desmond Long Unspecified open wou nd, left lower leg, initial encounter S81.802A ; Hypercholesterolemia E78.00 and Benign hypertension I10 [address] [address] 03/28/2025 Nafisa Persaud Puncture wound without foreign body, left lower leg, subsequent encounter S81.832D ; Local infection of skin and subcutaneous tissue L08.9 ; Edema R60.9 ; Hypercholesterolemia E78.00 and Benign hypertension I10 [address] [address] 03/31/2025 Desmond Long Unspecified open wou nd, left lower leg, initial encounter S81.802A ; Hypercholesterolemia E78.00 ; Unspecified open wound, left lower leg, subsequent encounter S81.802D and Benign hypertension I10 [address] [address] 04/04/2025 Desmond Long Unspecified open wou nd, left lower leg, subsequent encounter S81.802D ; Benign hypertension I10 ; Puncture wound without foreign body, left lower leg, subsequent encounter S81.832D ; Local infection of skin and subcutaneous tissue L08.9 and Hypercholesterolemia E78.[address] [address] 04/11/2025 Desmond Long Hypercholesterolemia E78.00 ; Benign hypertension I10 and Unspecified open wound, left lower leg, subsequent encounter S81.802D [address] [address] 04/18/2025 Desmond Long Hypercholesterolemia E78.00 ; Benign hypertension I10 and Unspecified open wound, left lower leg, subsequent encounter S81.802D [address] [address] 05/02/2025 Desmond Long Hypercholesterolemia E78.00 ; Benign hypertension I10 and Unspecified open wound, left lower leg, subsequent encounter S81.802D [address] [address] 03/18/2025 Desmond Long [facility] [address] [place] [address] 03/21/2025 Desmond Lounne [facility] [address] [facility] [address] [place] [address] 03/27/2025 Desmond Long Assessments Encounter Date Diagnosis (ICD Code) Assessment Notes Treatment Notes Treatment Clinical Notes Section Notes 03/21/2025 Unspecified open wound, left lower leg, initial encounter (ICD-10 - S81.802A) 03/24/2025 Unspecified open wound, left lower leg, initial encounter (ICD-10 - [...] I may have had. 03/31/2025 Unspecified open wound, left lower leg, initial encounter (ICD-10 - S81.802A) 03/31/2025 Unspecified open wound, left lower leg, subsequent encounter (ICD-10 - S81.802D) 03/31/2025 Hypercholesterolemia (ICD-10 - E78.00) 04/04/2025 Unspecified open wound, left lower leg, subsequent encounter (ICD-10 - S81.802D) 04/11/2025 Hypercholesterolemia (ICD-10 - E78.00) 04/18/2025 Hypercholesterolemia (ICD-10 - E78.00) 05/02/2025 Hypercholesterolemia (ICD-10 - E78.00) 05/02/2025 Benign hypertension (ICD-10 - I10) 04/18/2025 Benign hypertension (ICD-10 - I10) 04/11/2025 Benign hypertension (ICD-10 - I10) 04/04/2025 Benign hypertension (ICD-10 - I10) 03/31/2025 Benign hypertension (ICD-10 - I10) 03/28/2025 Local infection of skin and subcutaneous tissue (ICD-10 - L08.9) 03/24/2025 [...] Edema (ICD-10 - R60.9) 04/11/2025 Unspecified open wound, left lower leg, subsequent encounter (ICD-10 - S81.802D) 04/18/2025 Unspecified open wound, left lower leg, subsequent encounter (ICD-10 - S81.802D) 05/02/2025 Unspecified open wound, left lower leg, subsequent encounter (ICD-10 - S81.802D) 04/04/2025 Local infection of skin and subcutaneous tissue (ICD-10 - L08.9) 03/28/2025 [...] questions or concerns I, Desmond Long, MSN, DERMATOLOGICAL SURGEON, REGISTERED OCCUPATIONAL THERAPIST-C, examined, evaluated , and treated the patient. [...] all questions answered. I, Desmond Long, MSN, DERMATOLOGICAL SURGEON, REGISTERED OCCUPATIONAL THERAPIST-C, examined, evaluated, and treated the patient. Dr. [...] urgent care after appointment, urgent care in [place] ([facility] to obtain US of left leg to rule out DVT with acute onset mid-calf pain with sharp shooting pain that is positional. I, Desmond Long, MSN, DERMATOLOGICAL SURGEON, REGISTERED OCCUPATIONAL THERAPIST-C, examined, evaluated, and treated the patient. Dr. [...] urgent care after appointment, urgent care in [place] ([facility]) to obtain US of left leg to rule out DVT with acute onset mid-calf pain with sharp shooting pain that is positional. Desmond Duarte, MSN, DERMATOLOGICAL SURGEON, REGISTERED OCCUPATIONAL THERAPIST-C, examined, evaluated, and treated the patient. Dr. Gerardo Olivia was available for any questions or concerns that I may have had. 05/02/2025 Other resolved area to left lower leg wound, Patient is afebrile with no signs of skin infection. There was 100 % epithelialization noted with no open area. No debridement was performed at todays visit. Use protective dressing for next few days for new fragile skin., and avoid submerging under water for next week. Patient was educated to call wound clinic with any questions comments or concerns. Thank you for allowing us to care for your wound Desmond Duarte, MSN, DERMATOLOGICAL SURGEON, REGISTERED OCCUPATIONAL THERAPIST-C, examined, evaluated, and treated the patient. Dr. Gerardo Olivia was available for any questions or concerns that I may have had. A total of 30 minutes was spent on this visit (face to face and non face to face) documenting HPI and performing physical exam, reviewing previous notes and testing, reviewing and adjusting treatment plan, counseling the patient on treatment choices, disease process, expected outcomes, and documenting the findings in the note. Plan Of Treatment No Information Insurance Providers Payer Name Payer Address Payer Phone Subscriber Number Group Number Insured Name Patient Relationship to Insured Coverage Start Date Coverage End Date Medicare [address] AYLIN FERRARO [id number] Jose Armando Edita Self - patient is the insured 1 [employer] [address] [place] [address] [id number] Jose Armando Edita Self - patient is the insured 2 [...] open wound, left lower leg, initial encounter S81.804X Surgical History Surgery Date(Month/Year) hysterectomy Colonoscopy X2
== END 2025-06-19 09:22 | disposition home or self-care (01) ==
LOC: HO.MAMMO 09:21
PROVIDERS: PCP Internal Medicine; Visit Provider Internal Medicine
DX: Z13.820 Encounter for screening for osteoporosis (principal); Z78.0 Asymptomatic menopausal state; M85.80 Other specified disorders of bone density and structure, unspecified site
CPT/HCPCS: 77080

== ENCOUNTER → 2025-06-19 10:00 | Outpatient (BNV) | payer MEDICARE, OTHER, SELFPAY | PROVIDERS: PCP Internal Medicine; Visit Provider Radiology Diagnostic Radiology | DX: E28.39 Other primary ovarian failure (principal) | CPT/HCPCS: 77080 ==